=== PATIENT | female | born 1990 | race Caucasian/White ===

== ENCOUNTER 2016-08-26 18:43 | Emergency (ER) | payer BC ==
[2016-08-26 19:15] VITALS: BP 146/98
--- NOTE | 2016-08-26 19:18 | EDM.PDOC ---
ED HPI GI/ABDOMINAL - General Chief Complaint: Abdominal Pain Stated Complaint: PAIN IN AB AREA Time Seen by Provider: 08/26/16 19:18 Source of Information: Reports: Patient History Limitations: Reports: No limitations - History of Present Illness INITIAL COMMENTS - FREE TEXT/NARRATIVE: 26-year-old female presents the ED with diffuse epigastric upper abdominal pain since around 0830 hours this morning. It came on before she had the any breakfast. This gradually worsened as the day has gone on. It does not radiate through to her back. Associated nausea with bringing up some bile but mostly dry heaving and she's not been able to eat today. She of 1-2 minimal loose stools. No blood noted. Pain is constant without colicky component. Should prefers to stand or sit and rock versus lie down. No associated fever or chills. She uses alcohol socially. She admits that she had a bout of pancreatitis at age 20 and was never determined as to the cause. She apparently did have an ERCP thinking that she had some sand or gravel in the common bile duct but nothing was found. No gallstones are identified at that time. She's not had any problems since that time. No previous surgery. She does have a history of endometriosis. Last menstrual period is 3 days late. She reports she' s not been sexual active as her 's been out of town for over 30 days.Does drink alcohol 4-5 days per week. usually 4-5 drinks at a sitting. Last alcohol use was 2 days ago. Symptom Onset Date: 08/26/16 Symptom Onset Time: 08:30 Timing/Duration: Reports: Hour(s):, Getting worse, Gradual onset Location: other (Epigastric and upper upper abdomen in the midline and across of both the left and right quadrants.) Quality: Reports: ache, fullness. Denies: cramping (Deep aching pain.), stabbing (Feels slightly bloated in the upper abdomen.), throbbing, radiating Severity: severe Improves with: Reports: other (Nothing seems to help or make it better. Has not taken any medications.) Context: Denies: sick contact, bad/questionable food, out of country travel, recent surgery, recent trauma, lifting, activity/exercise, other Associated Symptoms (-Female): Reports: diarrhea (2 or 3 small), loss of appetite, malaise, nausea/vomiting (Nausea vomiting up a small quantity of bilious material which she swallowed.). Denies: chest pain, back pain, groin pain, shoulder pain, constipation ( stools that were loose.), bloody stools, fever/chills, other Treatments [employer]: Reports: Other (see below) (None) - Related Data Allergies/ADRs: Allergies Allergy/AdvReac Type Severity Reaction Status Date / Time azithromycin [From Zithromax] Allergy Nausea Verified 08/26/16 18:51 Home Meds: Home Meds Ondansetron [Zofran ODT] 4 mg PO Q6H #5 tab.dis 08/26/16 [Rx] oxyCODONE HCl/Acetaminophen [Percocet 5-325 mg Tablet] 1 - 2 each PO Q4H PRN # 12 tablet 08/26/16 [Rx] Past Medical History Cardiovascular History: Reports: None Respiratory History: Reports: None Gastrointestinal History: Reports: Pancreatitis (At age 20. She did have ERCP thinking that she had gravel in her common bile duct but nothing was found. Query passage of small stone. 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, Other OB/BYN History: C section Musculoskeletal History: Reports: Fibromyalgia Neurological History: Reports: None Psychiatric History: Reports: Anxiety Endocrine/Metabolic History: Reports: Obesity/BMI 30+ Immunologic History: Reports: SLE Oncologic (Cancer) History: Reports: None Dermatologic History: Reports: None - Infectious Disease History Infectious Disease History: Reports: None - Past Surgical History HEENT Surgical History: Reports: Adenoidectomy Female Surgical History: Reports: section Other Female Surgeries/Procedures: 2 c-sec endometriosis Social & Family History - Family History Family Medical History: Noncontributory - Tobacco Use Smoking Status *Q: Current Every Day Smoker Years of Tobacco use: 4 Packs/Tins Daily: 0.5 - Caffeine Use Caffeine Use: Reports: Soda - Alcohol Use Days Per Week of Alcohol Use: 4 Number of Drinks Per Day: 5 Total Drinks Per Week: 20 Date of Last Drink: 08/24/16 - Recreational Drug Use Recreational Drug Use: No - Living Situation & Occupation Living situation: Reports: , with spouse, with family (2 kids) 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 Denies: fever, chills, weakness, fatigue, weight loss HEENT: Reports: No symptoms Respiratory: Reports: no symptoms Cardiovascular: Reports: No symptoms Endocrine: Reports: no symptoms GI/Abdominal: Reports: Abdominal pain (See history of present illness), Anorexia , Diarrhea, Distension, Nausea (Constant), Vomiting (Mostly dry heaving.). Denies: Black stool, Bloody stool, Constipation (Small quantities of loose stool x2 today.), Difficulty swallowing, Flatus (Feels distended.), Hematemesis , Hematochezia, Melena, Other : Reports: no symptoms, other (. It is about 3 days late. 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 History of endometriosis.) Musculoskeletal: Reports: back pain Skin: Reports: no symptoms (Intermittently.) Neurological: Reports: no symptoms Psychiatric: Reports: No symptoms Hematologic/Lymphatic: Reports: no symptoms Immunologic: Reports: no symptoms ED EXAM, GI/ABD - Physical Exam Exam: See Below Exam Limited By: No limitations General Appearance: alert, moderate distress (Prefers to sit and rock back and forth in place on the bed.) Eyes: bilateral: normal appearance (No jaundice) Throat/Mouth: Normal lips, Normal oropharynx, Other Head: atraumatic, normocephalic Neck: normal inspection, supple, non-tender, full range of motion. No: carotid bruit, lymphadenopathy (L), lymphadenopathy (R), thyromegaly Respiratory/Chest: no respiratory distress, lungs clear, normal breath sounds, no accessory muscle use, chest non-tender Cardiovascular: normal peripheral pulses, no edema, no gallop, no JVD, no murmur , no rub, tachycardia GI/Abdominal: hypoactive bowel sounds (Very quiet bowel sounds.), tenderness ( Cross the upper abdomen particularly epigastrium and soup supraumbilical. Tenderness is widespread across the midabdomen. No radiation into the back.), other (Mildly obese). No: McBurney's sign, Kelly's sign Back Exam: normal inspection, full range of motion. No: CVA tenderness (L), CVA tenderness (R) Extremities: normal inspection, normal range of motion, non-tender, no pedal edema, normal capillary refill Neurological: alert, oriented, CN II-XII intact, normal cognition Psychiatric: normal affect, normal mood Skin Exam: Warm, Dry, Intact, Normal color, No rash Course - Vital Signs Last Recorded V/S: Last Vital Signs Temp 36.2 C 08/26/16 18:50 Pulse 85 08/26/16 20:59 Resp 16 08/26/16 20:59 BP 146/98 H 08/26/16 18:50 Pulse Ox 98 08/26/16 20:59 - Orders/Labs/Meds Orders: Active Orders 24 hr Category Date Time Status Abdomen 1V Flat [CR] Stat Exams 08/26/16 19:25 Taken Abdomen Ltd [US] Stat Exams 08/26/16 20:24 Taken Labs: Laboratory Tests 08/26/16 08/26/16 08/26/16 Range/Units 19:47 19:47 19:47 WBC 10.10 H (3.98-10.04) K/mm3 RBC 4.59 (3.98-5.22) M/mm3 Hgb 16.1 H (11.2-15.7) gm/L Hct 45.7 H (34.1-44.9) % MCV 99.6 H (79.4-94.8) fl MCH 35.1 H (25.6-32.2) pg MCHC 35.2 (32.2-35.5) g/dl RDW Std Deviation 44.3 (36.4-46.3) fL Plt Count 141 L (182-369) K/mm3 MPV 11.4 (9.4-12.3) fl Neutrophils % (Manual) 86 H (40-60) % Band Neutrophils % 0 (0-10) % Lymphocytes % (Manual) 6 L (20-40) % Atypical Lymphs % 0 % Monocytes % (Manual) 5 (2-10) % Eosinophils % (Manual) 3 (0.7-5.8) % Basophils % (Manual) 0 L (0.1-1.2) Platelet Estimate Adequate Plt Morphology Comment Normal RBC Morph Comment Normal Sodium 137 (136-145) mEq/L Potassium 3.6 (3.5-5.1) mEq/L Chloride 102 (98-107) mEq/L Carbon Dioxide 24 (21-32) mEq/L Anion Gap 14.6 (5-15) BUN 6 L (7-18) mg/dL Creatinine 0.7 (0.55-1.02) mg/dL Est Cr Clr Drug Dosing 105.17 mL/min Estimated GFR (MDRD) > 60 (>60) mL/min BUN/Creatinine Ratio 8.6 L (14-18) Glucose 100 (74-106) mg/dL Calcium 9.2 (8.5-10.1) mg/dL Total Bilirubin 0.9 (0.2-1.0) mg/dL GGT 298 H (5-55) U/L AST 91 H (15-37) U/L ALT 81 H (14-59) U/L Alkaline Phosphatase 106 (46-116) U/L C-Reactive Protein 1.0 (<1.0) mg/dL Total Protein 7.5 (6.4-8.2) g/dl Albumin 3.5 (3.4-5.0) g/dl Globulin 4.0 gm/dL Albumin/Globulin Ratio 0.9 L (1-2) Lipase 103 (73-393) U/L HCG, Qual Negative (NEGATIVE) Urine Color (Yellow) Urine Appearance (Clear) Urine pH (5.0-8.0) Ur Specific [place] (1.005-1.030) Urine Protein (Negative) Urine Glucose (UA) (Negative) Urine Ketones (Negative) Urine Occult Blood (Negative) Urine Nitrite (Negative) Urine Bilirubin (Negative) Urine Urobilinogen (0.2-1.0) Ur Leukocyte Esterase (Negative) Urine RBC (0-5) /hpf Urine WBC (0-5) /hpf Ur Epithelial Cells (0-5) /hpf Urine Bacteria (FEW) /hpf Urine Mucus (FEW) /hpf Urine Opiates Screen (NEGATIVE) Ur Buprenorphine Scrn (NEGATIVE) Ur Oxycodone Screen (NEGATIVE) Urine Methadone Screen (NEGATIVE) Ur Propoxyphene Screen (NEGATIVE) Ur Barbiturates Screen (NEGATIVE) Ur Tricyclics Screen (NEGATIVE) Ur Phencyclidine Scrn (NEGATIVE) Ur Amphetamine Screen (NEGATIVE) U Methamphetamines Scrn (NEGATIVE) U Benzodiazepines Scrn (NEGATIVE) U Cocaine Metab Screen (NEGATIVE) U Marijuana (THC) Screen (NEGATIVE) Ethyl Alcohol (0.00) gm% 08/26/16 08/26/16 08/26/16 Range/Units 19:47 19:50 19:50 WBC (3.98-10.04) K/mm3 RBC (3.98-5.22) M/mm3 Hgb (11.2-15.7) gm/L Hct (34.1-44.9) % MCV (79.4-94.8) fl MCH (25.6-32.2) pg MCHC (32.2-35.5) g/dl RDW Std Deviation (36.4-46.3) fL Plt Count (182-369) K/mm3 MPV (9.4-12.3) fl Neutrophils % (Manual) (40-60) % Band Neutrophils % (0-10) % Lymphocytes % (Manual) (20-40) % Atypical Lymphs % % Monocytes % (Manual) (2-10) % Eosinophils % (Manual) (0.7-5.8) % Basophils % (Manual) (0.1-1.2) Platelet Estimate Plt Morphology Comment RBC Morph Comment Sodium (136-145) mEq/L Potassium (3.5-5.1) mEq/L Chloride (98-107) mEq/L Carbon Dioxide (21-32) mEq/L Anion Gap (5-15) BUN (7-18) mg/dL Creatinine (0.55-1.02) mg/dL Est Cr Clr Drug Dosing mL/min Estimated GFR (MDRD) (>60) mL/min BUN/Creatinine Ratio (14-18) Glucose (74-106) mg/dL Calcium (8.5-10.1) mg/dL Total Bilirubin (0.2-1.0) mg/dL GGT (5-55) U/L AST (15-37) U/L ALT (14-59) U/L Alkaline Phosphatase (46-116) U/L C-Reactive Protein (<1.0) mg/dL Total Protein (6.4-8.2) g/dl Albumin (3.4-5.0) g/dl Globulin gm/dL Albumin/Globulin Ratio (1-2) Lipase (73-393) U/L HCG, Qual (NEGATIVE) Urine Color Yellow (Yellow) Urine Appearance Slt cloudy H (Clear) Urine pH 8.5 H (5.0-8.0) Ur Specific [place] 1.020 (1.005-1.030) Urine Protein 1+ H (Negative) Urine Glucose (UA) Negative (Negative) Urine Ketones 1+ H (Negative) Urine Occult Blood Negative (Negative) Urine Nitrite Negative (Negative) Urine Bilirubin 1+ H (Negative) Urine Urobilinogen 1.0 (0.2-1.0) Ur Leukocyte Esterase Negative (Negative) Urine RBC 0-5 (0-5) /hpf Urine WBC 0-5 (0-5) /hpf Ur Epithelial Cells 5-10 H (0-5) /hpf Urine Bacteria Moderate H (FEW) /hpf Urine Mucus Many H (FEW) /hpf Urine Opiates Screen Negative (NEGATIVE) Ur Buprenorphine Scrn Negative (NEGATIVE) Ur Oxycodone Screen Negative (NEGATIVE) Urine Methadone Screen Negative (NEGATIVE) Ur Propoxyphene Screen Negative (NEGATIVE) Ur Barbiturates Screen Negative (NEGATIVE) Ur Tricyclics Screen Negative (NEGATIVE) Ur Phencyclidine Scrn Negative (NEGATIVE) Ur Amphetamine Screen Negative (NEGATIVE) U Methamphetamines Scrn Negative (NEGATIVE) U Benzodiazepines Scrn Negative (NEGATIVE) U Cocaine Metab Screen Negative (NEGATIVE) U Marijuana (THC) Screen Negative (NEGATIVE) Ethyl Alcohol 0.00 (0.00) gm% Meds: Medications Discontinued Medications Generic Name Dose Route Start Last Admin Trade Name Freq PRN Reason Stop Dose Admin Hydromorphone HCl 1 mg 08/26/16 19:23 08/26/16 19:57 Dilaudid IVPUSH 08/26/16 19:24 1 mg ONETIME ONE Administration Hydromorphone HCl 1 mg 08/26/16 21:48 08/26/16 21:56 Dilaudid IVPUSH 08/26/16 21:49 1 mg ONETIME ONE Administration Dextrose/Sodium Chloride 1,000 mls @ 999 mls/hr 08/26/16 19:30 08/26/16 19:53 Dextrose 5%-Normal Saline IV 999 mls/hr ASDIRECTED ALISA Administration Ketorolac Tromethamine 30 mg 08/26/16 22:00 08/26/16 21:57 Toradol IVPUSH 30 mg ONETIME ALISA Administration Metoclopramide HCl 10 mg 08/26/16 19:24 08/26/16 19:55 Reglan IVPUSH 08/26/16 19:25 10 mg ONETIME ONE Administration - Radiology Interpretation Free Text/Narrative:: 26-year-old female presents to the ED with diffuse upper abdominal pain starting about 0830 hours this morning . Pain came on gradually and has worsened as the day has gone on. Associated nausea with occasional dry heaves and some bilious emesis which she swallowed. Has had a few loose stools today. Pain is constant with no colicky component . It's all above the umbilicus ,does not radiate into her back. She has a history of pancreatitis diagnosed at age 20. She had ERCP with no positive findings. At that time she did not drink alcohol at all. At present she drinks alcohol 4-5 days pwer week. usually 4-5 drinks per sitting. This would be at risk alcohol use. . No new medications. No known hypertriglyceridemia. Examination reveals tenderness in the upper abdomen suggestive of possible pancreatitis. Plan IV D5 normal saline and opened. Dilaudid 1 mg IV with Reglan 10 mg IV for pain relief. Routine labs to include a lipase CRP and GGT level. One view of the abdomen will be obtained. A serum hCG was also ordered and a urinalysis. - Re-Assessments/Exams Free Text/Narrative Re-Assessment/Exam: 08/26/16 19:44KUB reveals essentially normal abdomen. There is no sign of bowel obstruction. There is no increased stool. Scattered air pockets throughout the transverse colon and one small portion of small bowel superior to the transverse colon. Benign appearing KUB 08/26/16 20:25labs are back and revealed a white count of 10.10. Hemoglobin is mildly elevated at 16.1 hematocrit 45.7 platelets normal 141,000. The hCG was negative. Chemistry shows a sodium of 137 potassium 3.6. Anion gap is normal at 14.6. CRP is 1.0 lipase normal 103. AST is mildly elevated at 91 ALT mildly elevated at 81. GGT is not going to be available to the lab problems. Urine is positive for 1+ ketones 1+ bilirubin and 1+ protein. Due to the nature of her severe pain I will have an ultrasound of her gallbladder performed at this time. She has not been able to eat all day. 08/26/16 21:41GB ultrasound has been completed. The liver was noted to be normal with no intrahepatic bile duct dilatation. Gallbladder shows a 1 cm non- shadowing focus adherent to the gallbladder wall suggestive of a polyp. Common bile duct maximal diameter is 3 mm no definitive stones are noted in the gallbladder. Right kidney was appreciated to be normal. 08/26/16 21:49 the patient is having recurrence of pain now since she had the gallbladder ultrasound. She does have more localized pain underneath the right costal margin at this time with positive Kelly sign. The radiologist could not identify whether this was a polyp or sludge within the gallbladder. Since she has been having recurrent similar problems I'm going to go ahead and book her for a HIDA scan as an outpatient. I will give her Dilaudid 1 milligram IV for further pain relief with Toradol 30 mg IV as well. She will be sent home with Zofran 4 mg sublingually every 6 hours when necessary for nausea or vomiting relief. Percocet tabs 5 /325 one or 2 every 4-6 hours as needed for pain relief x10 tabs.results of this study are to go to [facility] her normal care provider. Departure - Departure Time of Disposition: 21:50 Disposition: Home, Self-Care 01 Condition: fair Clinical Impression: Biliary colic symptom Prescriptions: Ondansetron [Zofran ODT] 4 mg PO Q6H #5 tab.dis oxyCODONE HCl/Acetaminophen [Percocet 5-325 mg Tablet] 1 - 2 each PO Q4H PRN # 12 tablet PRN Reason: pain relief. Instructions: Biliary Colic Referrals: Paz Clark DO [Primary Care Provider] - Forms: ED Department Discharge Additional Instructions: evaluation in the emergency room tonight in regards to development of significant epigastric mild right upper quadrant abdominal pain since early this morning. Pain worsened as the day went on and did not allow you to eat or drink. Examination revealed pain localized to the upper abdomen. With a history of reported pancreatitis at age 20 investigations were carried out. Labs done did not reveal any evidence of pancreatitis. Serum lipase was well within the normal range at 1:30. White count was only minimally elevated. Liver enzymes are mildly elevated likely due to alcohol use. Ultrasound of the gallbladder was performed and reveals sludge within the gallbladder wall. This may mean that you have a nonfunctioning or improperly functioning gallbladder. Suggest further investigations be carried out by way of a HIDA scan to identify whether or not the gallbladder is diseased enough to warrant surgical removal. He received pain medication and IV fluids while in the ED. Treatment at home is no fat and low protein diet for the next couple of days. Carbohydrates are okay to take such as breads cereal etc. I will have the radiology department call you tomorrow to book that time for HIDA scan. Did not take any pain medication for 12 hours prior to the HIDA scan other than Motrin or Aleve et cetera. May use Zofran 4 mg under the tongue every 6 hours as needed for relief of nausea or vomiting. The results of the HIDA scan will be sent here normal care provider. Please book an appointment followup with them 2 days after the HIDA scan has been completed. If surgical management is required they will try to to appropriate surgical referral. - My Orders Last 24 Hours: My Active Orders 08/26/16 19:25 Abdomen 1V Flat [CR] Stat 08/26/16 20:24 Abdomen Ltd [US] Stat - Assessment/Plan Last 24 Hours: My Active Orders 08/26/16 19:25 Abdomen 1V Flat [CR] Stat 08/26/16 20:24 Abdomen Ltd [US] Stat
[2016-08-26] MEDS ORDERED: HYDROmorphone 1 MG/ML Syringe IVPUSH ONE ×2 (19:23→21:48)
[2016-08-26] MEDS ORDERED: Metoclopramide 10 MG/2 ML SDV IVPUSH ONE (19:24)
[2016-08-26] MEDS ORDERED: Dextrose 5%-0.9% NaCl 1,000 ML IV SCH (19:30)
[2016-08-26] MEDS ORDERED: Ketorolac 30 MG/ML SDV IVPUSH SCH (22:00)
[2016-08-26] MEDS ORDERED: Acetaminophen/oxyCODONE 325-5 MG Tab ONE (22:04)
[2016-08-26] MEDS ORDERED: Ondansetron 4 MG Tab.DIS ONE (22:04)
--- NOTE | 2016-08-27 07:05 | CR ---
Abdomen: Supine view of the abdomen was obtained. Comparison: No previous abdominal x-ray. Bowel gas pattern appears normal. No abnormal calcifications or discrete soft tissue abnormality is seen. Bony structures appear within normal limits for the patient's age. Impression: 1. No abnormality is identified on supine abdominal x-ray. Diagnostic code #1
--- NOTE | 2016-08-27 07:05 | US ---
Limited abdominal ultrasound: Multiple real-time images of the upper right abdomen were obtained. Comparison: No previous abdominal ultrasound Liver appears mildly generous in size and echogenic. No discrete focal abnormality is appreciated. Small soft tissue abnormality identified along the gallbladder wall possibly due to polyp or adherent sludge. No shadowing gallstones are seen. No gallbladder wall thickening is identified. No biliary duct dilatation is seen. Right kidney shows no hydronephrosis or mass. Right kidney measures 10.9 cm in length. Pancreas shows no discrete abnormality. Pancreas is incompletely seen. Inferior vena cava is patent. Impression: 1. Small intraluminal abnormality within the gallbladder most likely representing adherent sludge or polyp. Small gallbladder mass cannot be excluded but felt less likely. Follow-up exam could be considered in 2-3 months to confirm stability. 2. Liver generous in size and is echogenic felt compatible with fatty infiltration. 3. No additional abnormality is appreciated on right upper quadrant abdominal ultrasound. Diagnostic code #9 Agree with preliminary report issued by [facility] ([facility] report dictated on 08/26/16, 10:39 PM Central Time)
== END 2016-08-26 22:05 | disposition home or self-care (01) ==
LOC: JD.ED 18:43 → MERGE 18:43 → JD.ED 22:05
DX: K80.50 Calculus of bile duct without cholangitis or cholecystitis without obstruction (principal); F41.9 Anxiety disorder, unspecified; E66.9 Obesity, unspecified; Z88.1 Allergy status to other antibiotic agents; Z98.890 Other specified postprocedural states; F17.210 Nicotine dependence, cigarettes, uncomplicated
CPT/HCPCS: 36415; 74000; 76705; 80053; 81001; 82977; 83690; 84703; 85025; 86140; 96361; 96374; 96375; 96376; 99285; A9270; G0478; G0480; J1170; J1885; J2765; J7042; 80306; 99284

== ENCOUNTER 2016-09-01 19:31 | Emergency (ER) | payer BC ==
[2016-09-01 19:37] VITALS: BP 140/96
[2016-09-01] MEDS ORDERED: Metoclopramide 10 MG/2 ML SDV IVPUSH ONE (20:16)
[2016-09-01] MEDS ORDERED: HYDROmorphone 0.5 MG/0.5 ML Syringe IVPUSH ONE (20:18)
--- NOTE | 2016-09-01 22:04 | EDM.PDOC ---
ED HPI GI/ABDOMINAL - General Chief Complaint: Gastrointestinal Problem Stated Complaint: COUGH VOMITING LOWER RIGHT SIDE PAIN Time Seen by Provider: 09/01/16 19:58 Source of Information: Reports: Patient, RN notes reviewed - History of Present Illness INITIAL COMMENTS - FREE TEXT/NARRATIVE: 26 rolled female comes in with right upper quadrant abdominal pain, nausea vomiting. Her symptoms started about one week ago. She was seen here in the ED 6 days ago. Fairly complete workup done at that time. Labs did show very mildly elevated liver enzymes at that time. She had an ultrasound of her gallbladder which did show some sludge. She then had a HIDA scan done later in the week. She has not yet had results from that. However she's continued to have a very miserable week. She states that whenever she eats she gets sick abdominal pain and no repetitive nausea vomiting as well. The pain is primarily right upper quadrant does radiate to her back. She's not had fever or definite chills. Over now she also has developed nasal and sinus congestion a few days ago with frequent nonproductive cough. She's not having diarrhea. It is the abdominal pain, nausea vomiting that really concerns her the most. - Related Data Allergies/ADRs: Allergies Allergy/AdvReac Type Severity Reaction Status Date / Time azithromycin [From Zithromax] Allergy Nausea Verified 09/01/16 19:33 Home Meds: Home Meds Ondansetron [Zofran ODT] 4 mg PO Q6H #5 tab.dis 08/26/16 [Rx] oxyCODONE HCl/Acetaminophen [Percocet 5-325 mg Tablet] 1 - 2 each PO Q4H PRN # 12 tablet 08/26/16 [Rx] Metoclopramide HCl [Reglan] 5 mg PO Q6HR PRN #7 tablet 09/01/16 [Rx] oxyCODONE HCl/Acetaminophen [Percocet 5-325 mg Tablet] 1 each PO Q6HR PRN #7 tablet 09/01/16 [Rx] Past Medical History Cardiovascular History: Reports: None Respiratory History: Reports: None Gastrointestinal History: Reports: Pancreatitis Other Gastrointestinal History: 5 years ago Genitourinary History: Reports: None 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, Other OB/BYN History: C section Musculoskeletal History: Reports: Fibromyalgia Neurological History: Reports: None Psychiatric History: Reports: Anxiety Endocrine/Metabolic History: Reports: Obesity/BMI 30+ Immunologic History: Reports: SLE Oncologic (Cancer) History: Reports: None Dermatologic History: Reports: None - Infectious Disease History Infectious Disease History: Reports: Chicken pox - Past Surgical History HEENT Surgical History: Reports: Adenoidectomy Female Surgical History: Reports: section Other Female Surgeries/Procedures: 2 c-sec endometriosis Social & Family History - Family History Family Medical History: Noncontributory - Tobacco Use Smoking Status *Q: Current Every Day Smoker Years of Tobacco use: 4 Packs/Tins Daily: 0.5 - Caffeine Use Caffeine Use: Reports: None - Alcohol Use Days Per Week of Alcohol Use: 3 Number of Drinks Per Day: 5 Total Drinks Per Week: 15 - Recreational Drug Use Recreational Drug Use: No - Living Situation & Occupation Living situation: Reports: , with spouse, with family (2 kids) 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 Denies: fever HEENT: Reports: Throat pain (mild sore throat). Denies: Throat swelling Respiratory: Reports: cough. Denies: shortness of breath, wheezing, pleuritic chest pain, sputum Cardiovascular: Denies: Chest pain GI/Abdominal: Reports: Abdominal pain (right upper quadrant area of her abdomen with radiation at times to her back), Nausea, Vomiting. Denies: Diarrhea Musculoskeletal: Reports: back pain Skin: Reports: no symptoms Neurological: Reports: dizziness (mild) ED EXAM, GI/ABD - Physical Exam Exam: See Below General Appearance: alert, moderate distress Eyes: bilateral: normal appearance Throat/Mouth: Normal inspection, Normal oropharynx Head: atraumatic Neck: supple Respiratory/Chest: no respiratory distress, lungs clear, normal breath sounds Cardiovascular: tachycardia GI/Abdominal: tenderness (right upper quadrant and upper midabdomen, left abdomen soft and nontender right lower quadrant nontender) Back Exam: No: CVA tenderness (L), CVA tenderness (R) Extremities: normal inspection, normal range of motion Neurological: alert, oriented, no motor/sensory deficits Skin Exam: Warm, Dry, Normal color Course - Vital Signs Last Recorded V/S: Last Vital Signs Temp 97.8 F 09/01/16 19:35 Pulse 118 H 09/01/16 19:35 Resp 18 09/01/16 19:35 BP 140/96 H 09/01/16 19:35 Pulse Ox 96 09/01/16 19:35 - Orders/Labs/Meds Labs: Laboratory Tests 09/01/16 09/01/16 Range/Units 20:36 20:36 WBC 3.48 L (3.98-10.04) K/mm3 RBC 4.67 (3.98-5.22) M/mm3 Hgb 15.9 H (11.2-15.7) gm/L Hct 46.5 H (34.1-44.9) % MCV 99.6 H (79.4-94.8) fl MCH 34.0 H (25.6-32.2) pg MCHC 34.2 (32.2-35.5) g/dl RDW Std Deviation 45.0 (36.4-46.3) fL Plt Count 92 L (182-369) K/mm3 MPV 11.5 (9.4-12.3) fl Neut % (Auto) 59.5 (34.0-71.1) % Lymph % (Auto) 20.1 (19.3-51.7) % [place] % (Auto) 18.1 H (4.7-12.5) % Eos % (Auto) 1.1 (0.7-5.8) Baso % (Auto) 0.6 (0.1-1.2) % Neut # 2.07 (1.56-6.13) K/mm3 Lymph # 0.70 L (1.18-3.74) K/mm3 [place] # 0.63 H (0.24-0.36) K/mm3 Eos # 0.04 (0.04-0.36) K/mm3 Baso # 0.02 (0.01-0.08) K/mm3 Manual Slide Review Abnormal smear Sodium 136 (136-145) mEq/L Potassium 3.6 (3.5-5.1) mEq/L Chloride 101 (98-107) mEq/L Carbon Dioxide 23 (21-32) mEq/L Anion Gap 15.6 H (5-15) BUN 5 L (7-18) mg/dL Creatinine 0.7 (0.55-1.02) mg/dL Est Cr Clr Drug Dosing TNP Estimated GFR (MDRD) > 60 (>60) mL/min BUN/Creatinine Ratio 7.1 L (14-18) Glucose 90 (74-106) mg/dL Calcium 9.2 (8.5-10.1) mg/dL Total Bilirubin 0.3 (0.2-1.0) mg/dL GGT 399 H (5-55) U/L AST 216 H (15-37) U/L ALT 144 H (14-59) U/L Alkaline Phosphatase 101 (46-116) U/L Total Protein 7.7 (6.4-8.2) g/dl Albumin 3.9 (3.4-5.0) g/dl Globulin 3.8 gm/dL Albumin/Globulin Ratio 1.0 (1-2) Lipase 388 (73-393) U/L Meds: Medications Discontinued Medications Generic Name Dose Route Start Last Admin Trade Name Freq PRN Reason Stop Dose Admin Hydromorphone HCl 0.5 mg 09/01/16 20:18 09/01/16 20:38 Dilaudid IVPUSH 09/01/16 20:19 0.5 mg ONETIME ONE Administration Metoclopramide HCl 5 mg 09/01/16 20:16 09/01/16 20:37 Reglan IVPUSH 09/01/16 20:17 5 mg ONETIME ONE Administration - Re-Assessments/Exams Free Text/Narrative Re-Assessment/Exam: 09/01/16 22:15 labs are as documented. White blood count normal, liver enzymes including GGT are more elevated than they were 6 days ago. Bilirubin is fine at 0.3. I did review her HIDA scan report and does that is read out as within normal limits and an ejection fraction of 82%. However with her quite severe tenderness right upper quadrant, worsening liver enzymes, sludge on the ultrasound it would sure it seemed that her symptoms are primarily gallbladder related. Therefore I am suggesting she called Dr. Clark's office draw morning and try get a referral to one of the [facility] surgeons early this week. she feels much better after some IV fluid, IV Dilaudid 0.5 mg IV and Reglan IV. Discharge instructions as documented Departure - Departure Time of Disposition: 21:59 Disposition: Home, Self-Care 01 Condition: fair Clinical Impression: Abdominal pain Prescriptions: Metoclopramide HCl [Reglan] 5 mg PO Q6HR PRN #7 tablet PRN Reason: Nausea/Vomiting oxyCODONE HCl/Acetaminophen [Percocet 5-325 mg Tablet] 1 each PO Q6HR PRN #7 tablet PRN Reason: Pain Referrals: Paz Clark DO [Primary Care Provider] - Forms: ED Department Discharge Additional Instructions: It appears that the abdominal discomfort you are continuing to have difficulty with is related to gallbladder sludge and gallbladder disease. the liver enzymes I looked at this evening or elevated in comparison to your visit with Dr. Harper last Friday. continue with clear liquids and very bland diet avoiding any type of food that contains fat. Continue to avoid alcohol. You may take one half tablet Percocet along with a 500 mg Tylenol for pain as needed, Zofran as previously prescribed for nausea vomiting or Reglan 5 mg every 6-8 hours as needed. I recommend calling Dr. Clark's nurse tomorrow morning, explain the continued difficulty you were having and asked for a referral to Dr. Michelle Hall general surgeon or Dr. Joseph Martinez general surgeon. otherwise followup with Dr. Clark as needed. return to ED as needed.
== END 2016-09-01 22:34 | disposition home or self-care (01) ==
LOC: JD.ED 19:31 → MERGE 19:31 → JD.ED 22:34
DX: R10.11 Right upper quadrant pain (principal); F41.9 Anxiety disorder, unspecified; E66.9 Obesity, unspecified; F17.210 Nicotine dependence, cigarettes, uncomplicated; Z98.890 Other specified postprocedural states; Z88.1 Allergy status to other antibiotic agents; Z79.899 Other long term (current) drug therapy
CPT/HCPCS: 36415; 80053; 82977; 83690; 85025; 96374; 96375; 99284; J1170; J2765

== ENCOUNTER 2017-04-07 00:44 | Emergency (ER) | payer BC ==
[2017-04-07 00:55] VITALS: BP 142/100
[2017-04-07] MEDS ORDERED: Lidocaine 1% 50 ML MDV INJECT ONE (01:08)
[2017-04-07] MEDS ORDERED: Diphtheria/Tetanus Toxoids,Adult (Td) 0.5 ML Syringe IM ONE (01:08)
[2017-04-07] MEDS ORDERED: Diphtheria,Pertussis(Acell),Tetanus Vaccine 0.5 ML SDV IM ONE (01:20)
--- NOTE | 2017-04-07 01:34 | EDM.PDOC ---
ED HPI GENERAL MEDICAL PROBLEM - General Chief Complaint: Laceration Stated Complaint: self harm Time Seen by Provider: 04/07/17 01:00 Source of Information: Reports: Patient, RN Notes Reviewed - History of Present Illness INITIAL COMMENTS - FREE TEXT/NARRATIVE: 27-year-old female comes in with right forearm lacerations. She states that she did cut on her forearm this past evening about an hour or 2 ago. 2 or the cuts are moderately deep. She states that she was feeling stressed out. States that she does feel the need to cut at times. She blames it on the Lexapro that was prescribed for her a few weeks ago. States she was on Lexapro about 5 years ago and did not do well with that medication at that time. However she was ready and willing to try it again. She adamantly states that she does not feel suicidal, does not want to . - Related Data Allergies Allergy/AdvReac Type Severity Reaction Status Date / Time azithromycin [From Zithromax] Allergy Nausea Verified 09/01/16 19:33 ibuprofen Allergy Hives Verified 04/07/17 00:55 Home Meds: Home Meds Escitalopram Oxalate [Lexapro] 5 mg PO DAILY 04/07/17 [History] L.acidoph,Paracasei, B.lactis [Probiotic] 1 tab PO DAILY 04/07/17 [History] Multivitamin [Daily Multiple Vitamin] 1 tab PO DAILY 04/07/17 [History] Past Medical History Cardiovascular History: Reports: None Respiratory History: Reports: None Gastrointestinal History: Reports: Pancreatitis Other Gastrointestinal History: 5 years ago Genitourinary History: Reports: None 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, Other OB/BYN History: C section Musculoskeletal History: Reports: Fibromyalgia Neurological History: Reports: None Psychiatric History: Reports: Anxiety Endocrine/Metabolic History: Reports: Obesity/BMI 30+ Immunologic History: Reports: SLE Oncologic (Cancer) History: Reports: None Dermatologic History: Reports: None - Infectious Disease History Infectious Disease History: Reports: Chicken Pox - Past Surgical History HEENT Surgical History: Reports: Adenoidectomy GI Surgical History: Reports: Cholecystectomy Female Surgical History: Reports: Section Social & Family History - Family History Family Medical History: Noncontributory - Tobacco Use Smoking Status *Q: Current Every Day Smoker Years of Tobacco use: 5 Packs/Tins Daily: 0.5 - Caffeine Use Caffeine Use: Reports: None - Alcohol Use Days Per Week of Alcohol Use: 3 Number of Drinks Per Day: 5 Total Drinks Per Week: 15 - Recreational Drug Use Recreational Drug Use: No - Living Situation & Occupation Living situation: Reports: with Family, , with Spouse Occupation: Employed ED ROS GENERAL - Review of Systems Review Of Systems: See Below Constitutional: Reports: No Symptoms HEENT: Reports: No Symptoms Respiratory: Denies: Shortness of Breath Cardiovascular: Denies: Chest Pain GI/Abdominal: Denies: Abdominal Pain, Vomiting Musculoskeletal: Reports: Other (Multiple right forearm lacerations) Skin: Reports: Other (Healing abrasions left forearm) Neurological: Denies: Numbness, Tingling ED EXAM, SKIN/RASH Exam: See Below General Appearance: Alert, Anxious (Mild) Eye Exam: Bilateral Eye: PERRL Head: Atraumatic Neck: Supple Respiratory/Chest: No Respiratory Distress Extremities: Other (Multiple superficial abrasions of the right forearm, 2 deeper lacerations 1 2-1/2 cm and 1 is about 1.5 cm that are gaping) Skin: Other (There are multiple superficial abrasion injuries of the left forearm that do show signs of healing, subacute) ED SKIN PROCEDURES - Laceration/Wound Repair Right Mid-Anterior Arm Lac/Wound length In cm: 2.5 Appearance: Linear Anesthetic Type: Local Local Anesthesia - Lidocaine (Xylocaine): 1% Plain Skin Prep: Saline Suture Size: 3-0 # of Sutures: 4 Course - Vital Signs Last Recorded V/S: Last Vital Signs Temp 96 F 04/07/17 00:51 Pulse 108 H 04/07/17 00:51 Resp 18 04/07/17 00:51 BP 142/100 H 04/07/17 00:51 Pulse Ox 98 04/07/17 00:51 - Orders/Labs/Meds Orders: Active Orders 24 hr Category Date Time Status Vaccines to be Administered [RC] PER UNIT ROUTINE Care 04/07/17 01:09 Active Vaccines to be Administered [RC] PER UNIT ROUTINE Care 04/07/17 01:20 Active Meds: Medications Discontinued Medications Generic Name Dose Route Start Last Admin Trade Name Freq PRN Reason Stop Dose Admin Diphtheria/Tetanus/Acell Pertussis 0.5 ml 04/07/17 01:20 04/07/17 01:26 Adacel IM 04/07/17 01:21 0.5 ml .ONCE ONE Administration Lidocaine HCl 50 ml 04/07/17 01:08 04/07/17 01:30 Xylocaine 1% INJECT 04/07/17 01:09 50 ml ONETIME ONE Administration - Re-Assessments/Exams Free Text/Narrative Re-Assessment/Exam: 04/07/17 02:25 Second laceration right forearm 1.5 cm long shallow but gaping. Irrigated with normal saline. Anesthetized with 1% lidocaine. 2 3-0 Ethilon sutures placed Departure - Departure Time of Disposition: 01:50 Disposition: Home, Self-Care 01 Condition: Fair Clinical Impression: Forearm laceration Qualifiers: Encounter type: initial encounter Laterality: right Qualified Code(s): S51.811A - Laceration without foreign body of right forearm, initial encounter - Discharge Information Instructions: Laceration Care, Adult, [id number] Referrals: Jael Hale [employer] [Primary Care Provider] - Forms: ED Department Discharge Additional Instructions: Laceration care instructions, stitches out in about 10 days, there is no charge if you have those removed at our [facility] clinic, have rechecked any sign of infection - My Orders Last 24 Hours: My Active Orders 04/07/17 01:09 Vaccines to be Administered [RC] PER UNIT ROUTINE 04/07/17 01:20 Vaccines to be Administered [RC] PER UNIT ROUTINE - Assessment/Plan Last 24 Hours: My Active Orders 04/07/17 01:09 Vaccines to be Administered [RC] PER UNIT ROUTINE 04/07/17 01:20 Vaccines to be Administered [RC] PER UNIT ROUTINE
== END 2017-04-07 02:18 | disposition home or self-care (01) ==
LOC: JD.ED 00:44
DX: S51.811A Laceration without foreign body of right forearm, initial encounter (principal); Z88.6 Allergy status to analgesic agent; Z88.1 Allergy status to other antibiotic agents; Z79.899 Other long term (current) drug therapy; E66.9 Obesity, unspecified; F17.210 Nicotine dependence, cigarettes, uncomplicated; Z23 Encounter for immunization; W45.8XXA Other foreign body or object entering through skin, initial encounter; F41.8 Other specified anxiety disorders; F32.89 Other specified depressive episodes; T14.8XXA Other injury of unspecified body region, initial encounter; X58.XXXA Exposure to other specified factors, initial encounter
CPT/HCPCS: 12002; 36415; 80053; 84443; 85025; 90471; 90715; 99284-25

== ENCOUNTER 2017-11-24 23:10 | Emergency (ER) | payer BC, OTHER ==
[2017-11-25] MEDS ORDERED: Acetaminophen 325 MG Tab ONE (00:12)
[2017-11-25] MEDS ORDERED: Sodium Chloride 0.9% 1,000 ML ONE (00:12)
[2017-11-25] MEDS ORDERED: Sodium Chloride 0.9% 500 ML IV ONE (00:40)
[2017-11-25] MEDS ORDERED: Acetaminophen 325 MG Tab PO ONE (00:40)
[2017-11-25] MEDS ORDERED: Metoprolol Tartrate 50 MG Tab PO ONE (00:40)
--- NOTE | 2017-11-25 01:23 | EDM.PDOC ---
ED HPI GENERAL MEDICAL PROBLEM - General Chief Complaint: Headache Stated Complaint: PANIC ATTACK Time Seen by Provider: 11/25/17 00:17 Source of Information: Reports: Patient, RN Notes Reviewed - History of Present Illness INITIAL COMMENTS - FREE TEXT/NARRATIVE: 27-year-old female comes with headache, tailbone discomfort, mild right hand and wrist discomfort and palpitations status post fall 3 days ago. He states that she had her dog on a leash, going down some steps in the dog took off causing her to fall down "19 steps". She was seen at a [place] ED yesterday. X -rays of her right hand showed no fracture. She states there are "was no other treatment provided. She does not think she suffered LOC. No major neck or upper back discomfort. - Related Data Allergies Allergy/AdvReac Type Severity Reaction Status Date / Time azithromycin [From Zithromax] Allergy Nausea Verified 09/01/16 19:33 ibuprofen Allergy Hives Verified 04/07/17 00:55 Home Meds: Home Meds Escitalopram Oxalate [Lexapro] 5 mg PO DAILY 04/07/17 [History] L.acidoph,Paracasei, B.lactis [Probiotic] 1 tab PO DAILY 04/07/17 [History] Multivitamin [Daily Multiple Vitamin] 1 tab PO DAILY 04/07/17 [History] Past Medical History Cardiovascular History: Reports: None Respiratory History: Reports: None Gastrointestinal History: Reports: Pancreatitis Other Gastrointestinal History: 5 years ago Genitourinary History: Reports: None 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, Other OB/BYN History: C section Musculoskeletal History: Reports: Fibromyalgia Neurological History: Reports: None Psychiatric History: Reports: Anxiety Endocrine/Metabolic History: Reports: Obesity/BMI 30+ Immunologic History: Reports: SLE Oncologic (Cancer) History: Reports: None Dermatologic History: Reports: None - Infectious Disease History Infectious Disease History: Reports: Chicken Pox - Past Surgical History HEENT Surgical History: Reports: Adenoidectomy GI Surgical History: Reports: Cholecystectomy Female Surgical History: Reports: Section Social & Family History - Family History Family Medical History: Noncontributory - Caffeine Use Caffeine Use: Reports: None - Living Situation & Occupation Living situation: Reports: with Family, , with Spouse Occupation: Employed ED ROS GENERAL - Review of Systems Review Of Systems: See Below Constitutional: Denies: Fever, Chills HEENT: Denies: Ear Discharge, Throat Pain, Vertigo, Vision Change Respiratory: Denies: Shortness of Breath Cardiovascular: Reports: Palpitations. Denies: Chest Pain GI/Abdominal: Denies: Abdominal Pain, Nausea, Vomiting Musculoskeletal: Reports: Joint Pain (Tailbone discomfort right hand discomfort) , Other. Denies: Neck Pain Skin: Denies: Bruising Neurological: Reports: Headache ED EXAM, HEAD INJURY - Physical Exam Exam: See Below General Appearance: Alert, Anxious (Mild) Head: Scalp Tenderness (Wrist tenderness of the right and posterior scalp). No : Scalp Hematoma, Ahumada's Sign, Facial Swelling, Raccoon Eyes Eyes: Bilateral Eye: PERRL Ears: Normal External Exam Nose: Normal Inspection Throat/Mouth: Normal Inspection Neck: Non-Tender, Full Range of Motion Respiratory: No Respiratory Distress, Lungs Clear Cardiovascular: Tachycardia GI/Abdominal Exam: Soft, Non-Tender Back Exam: Vertebral Tenderness (Tailbone) Extremities: Normal Inspection, Normal Range of Motion Neurologic: No Motor/Sensory Deficits, Normal Mood/Affect, Oriented x 3 Skin: Normal Color, Warm/Dry Course - Orders/Labs/Meds Orders: Active Orders 24 hr Category Date Time Status Head wo Cont [CT] Stat Exams 11/25/17 00:40 Ordered Sacrum Coccyx Min 2V [CR] Routine Exams 11/25/17 00:35 Taken Labs: Laboratory Tests 11/25/17 11/25/17 Range/Units 00:10 00:10 WBC 8.96 (3.98-10.04) K/mm3 RBC 4.66 (3.98-5.22) M/mm3 Hgb 16.1 H (11.2-15.7) gm/L Hct 46.0 H (34.1-44.9) % MCV 98.7 H (79.4-94.8) fl MCH 34.5 H (25.6-32.2) pg MCHC 35.0 (32.2-35.5) g/dl RDW Std Deviation 44.1 (36.4-46.3) fL Plt Count 160 L (182-369) K/mm3 MPV 11.9 (9.4-12.3) fl Neut % (Auto) 65.7 (34.0-71.1) % Lymph % (Auto) 24.2 (19.3-51.7) % [place] % (Auto) 8.3 (4.7-12.5) % Eos % (Auto) 1.5 (0.7-5.8) Baso % (Auto) 0.2 (0.1-1.2) % Neut # (Auto) 5.89 (1.56-6.13) K/mm3 Lymph # (Auto) 2.17 (1.18-3.74) K/mm3 [place] # (Auto) 0.74 H (0.24-0.36) K/mm3 Eos # (Auto) 0.13 (0.04-0.36) K/mm3 Baso # (Auto) 0.02 (0.01-0.08) K/mm3 Sodium 137 (136-145) mEq/L Potassium 2.9 L (3.5-5.1) mEq/L Chloride 100 (98-107) mEq/L Carbon Dioxide 24 (21-32) mEq/L Anion Gap 15.9 H (5-15) BUN 7 (7-18) mg/dL Creatinine 0.9 (0.55-1.02) mg/dL Est Cr Clr Drug Dosing TNP Estimated GFR (MDRD) > 60 (>60) mL/min BUN/Creatinine Ratio 7.8 L (14-18) Glucose 101 (74-106) mg/dL Calcium 9.5 (8.5-10.1) mg/dL Total Bilirubin 0.7 (0.2-1.0) mg/dL AST 30 (15-37) U/L ALT 32 (14-59) U/L Alkaline Phosphatase 75 (46-116) U/L Total Protein 7.7 (6.4-8.2) g/dl Albumin 3.6 (3.4-5.0) g/dl Globulin 4.1 gm/dL Albumin/Globulin Ratio 0.9 L (1-2) Ethyl Alcohol 0.00 (0.00) gm% Meds: Medications Discontinued Medications Generic Name Dose Route Start Last Admin Trade Name Freq PRN Reason Stop Dose Admin Acetaminophen 975 mg 11/25/17 00:40 Tylenol PO 11/25/17 00:41 NOW ONE Sodium Chloride 500 mls @ 999 mls/hr 11/25/17 00:40 Normal Saline IV 11/25/17 01:10 .BOLUS ONE Metoprolol Tartrate 50 mg 11/25/17 00:40 Lopressor PO 11/25/17 00:41 ONETIME ONE Potassium Chloride 20 meq 11/25/17 01:41 Klor-Con M20 PO 11/25/17 01:42 ONETIME ONE - Re-Assessments/Exams Free Text/Narrative Re-Assessment/Exam: 11/25/17 02:04 Heart rate has steadily come down with IV fluid, she also was given metoprolol 25 mg by mouth, Tylenol 975 by mouth area was told that she does feel much better. Discharge instructions as documented. Departure - Departure Time of Disposition: 01:40 Disposition: Home, Self-Care 01 Condition: Fair Clinical Impression: Palpitations, Hypokalemia Fall Qualifiers: Encounter type: initial encounter Qualified Code(s): W19.XXXA - Unspecified fall, initial encounter Scalp contusion Qualifiers: Encounter type: initial encounter Qualified Code(s): S00.03XA - Contusion of scalp, initial encounter Coccygeal contusion Qualifiers: Encounter type: initial encounter Qualified Code(s): S30.0XXA - Contusion of lower back and pelvis, initial encounter - Discharge Information Referrals: PCP,None [Primary Care Provider] - Forms: ED Department Discharge Additional Instructions: CT of your head this evening was normal, x-rays of your tailbone, no fracture. Your potassium was low at 2.9. Eat some bananas, eat plenty of fruit and vegetables. Potatoes also are a very high source of potassium. Drink Plenty of water to maintain hydration. You may take Tylenol 2-3 times daily as needed for discomfort. May also alternate ice and heat to areas of discomfort as needed. Follow-up clinic as needed, return to ED as needed if symptoms worsening in any way. - My Orders Last 24 Hours: My Active Orders 11/25/17 00:35 Sacrum Coccyx Min 2V [CR] Routine 11/25/17 00:40 Head wo Cont [CT] Stat - Assessment/Plan Last 24 Hours: My Active Orders 11/25/17 00:35 Sacrum Coccyx Min 2V [CR] Routine 11/25/17 00:40 Head wo Cont [CT] Stat
[2017-11-25] MEDS ORDERED: Potassium Chloride 20 MEQ Tab.ER PO ONE (01:41)
[2017-11-25 03:16] VITALS: BP 129/89
--- NOTE | 2017-11-26 12:54 | CT ---
Head CT Technique: Multiple axial sections through the brain were obtained. Intravenous contrast was not utilized. Comparison: No prior intracranial imaging. Findings: Ventricles along with basal cisterns and sulci over the convexities are within normal limits for the patient's age. No abnormal parenchymal densities are seen. No evidence of intracranial hemorrhage. No midline shift or mass effect is seen. Visualized sinuses are clear. No acute calvarial abnormality is seen. Impression: 1. Nothing acute is seen on noncontrast head CT exam. Diagnostic code #1 I agree with preliminary report from ad, finalized at 11/25/17, 1:43 AM Central Time
--- NOTE | 2017-11-26 12:54 | CR ---
Sacrum and coccyx: Three views of the sacrum and coccyx were obtained. Comparison: No prior study. No fracture or other bony abnormality is seen. Sacroiliac joints are normal. Impression: 1. No abnormality is appreciated on three-view sacrum and coccyx study. Diagnostic code #1
== END 2017-11-25 02:30 | disposition home or self-care (01) ==
LOC: JD.ED 23:10 → EEVIPCON 23:10 → JD.ED 11-25 02:30
DX: S00.03XA Contusion of scalp, initial encounter (principal); S30.0XXA Contusion of lower back and pelvis, initial encounter; E66.9 Obesity, unspecified; R00.2 Palpitations; E87.6 Hypokalemia; Z88.8 Allergy status to other drugs, medicaments and biological substances; Z79.899 Other long term (current) drug therapy; Z88.1 Allergy status to other antibiotic agents; W10.9XXA Fall (on) (from) unspecified stairs and steps, initial encounter
CPT/HCPCS: 36415; 70450; 72220; 80053; 85025; 96360; 99284; A9270; G0480; J7040; 99283

== ENCOUNTER 2018-03-10 18:52 | Emergency (ER) | payer SELFPAY ==
[2018-03-10 19:02] VITALS: BP 167/104
--- NOTE | 2018-03-10 19:19 | EDM.PDOC ---
ED HPI GENERAL MEDICAL PROBLEM - General Chief Complaint: Abdominal Pain Stated Complaint: ABDOMINAL PAIN Time Seen by Provider: 03/10/18 19:07 Source of Information: Reports: Patient History Limitations: Reports: No Limitations - History of Present Illness INITIAL COMMENTS - FREE TEXT/NARRATIVE: 28-year-old female presents for evaluation and treatment of abdominal pain. Patient reports that the abdominal pain started suddenly around 10 or 11 AM this morning. Reports is located in the epigastric area with radiation into her lower abdomen. Describes it as a sharp pain. It is intermittent. She reports associated symptoms of nausea and feeling "shaky ." no vomiting. No radiation to her chest or back. She denies any chest pain or shortness of breath. She reports around 10 AM this when she was eating some lemon chicken. This seemed to start her abdominal discomfort. She did try to drink some water but that worsen her pain. No fevers, diarrhea, dysuria or hematuria. Patient reports a past medical history of pancreatitis about 8 years ago. Patient reports past surgical history of a laparoscopic cholecystectomy, exploratory lap and . Onset: Today, Sudden Location: Reports: Abdomen Upper Abdomen Pain Score (Numeric/FACES): 4 - Related Data Allergies Allergy/AdvReac Type Severity Reaction Status Date / Time azithromycin [From Zithromax] Allergy Nausea Verified 03/10/18 19:02 ibuprofen Allergy Hives Verified 03/10/18 19:02 Home Meds: Home Meds predniSONE [Prednisone] 20 mg PO BID #10 tablet 03/10/18 [Rx] traMADol [Ultram] 50 mg PO Q6H PRN #15 tab 03/10/18 [Rx] Past Medical History Cardiovascular History: Reports: None Respiratory History: Reports: None Gastrointestinal History: Reports: Pancreatitis Other Gastrointestinal History: 5 years ago Genitourinary History: Reports: None [employer] History: Reports: 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, 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 Musculoskeletal History: Reports: Fibromyalgia Neurological History: Reports: None Psychiatric History: Reports: Anxiety Endocrine/Metabolic History: Reports: Obesity/BMI 30+ Immunologic History: Reports: SLE Oncologic (Cancer) History: Reports: None Dermatologic History: Reports: None - Infectious Disease History Infectious Disease History: Reports: Chicken Pox - Past Surgical History HEENT Surgical History: Reports: Adenoidectomy GI Surgical History: Reports: Cholecystectomy Female Surgical History: Reports: Section Social & Family History - Family History Family Medical History: Noncontributory - Tobacco Use Smoking Status *Q: Current Every Day Smoker Years of Tobacco use: 7 Packs/Tins Daily: 0.5 - Caffeine Use Caffeine Use: Reports: None - Recreational Drug Use Recreational Drug Use: No - Living Situation & Occupation Living situation: Reports: with Family, , with Spouse Occupation: Employed ED ROS GENERAL - Review of Systems Review Of Systems: See Below Constitutional: Reports: Malaise, Decreased Appetite Respiratory: Reports: Shortness of Breath Cardiovascular: Reports: Chest Pain GI/Abdominal: Reports: Abdominal Pain (epigastric), Decreased Appetite, Nausea. Denies: Diarrhea, Vomiting : Denies: Dysuria, Hematuria Musculoskeletal: Denies: Back Pain ED EXAM, GI/ABD - Physical Exam Exam: See Below Exam Limited By: No Limitations General Appearance: Alert, WD/WN, No Apparent Distress Respiratory/Chest: No Respiratory Distress, Lungs Clear, Normal Breath Sounds Cardiovascular: Normal Peripheral Pulses, Regular Rate, Rhythm GI/Abdominal Exam: Normal Bowel Sounds, Soft, Tender (diffuse, greatest in the epigastric area) Neurological: Alert, Oriented, Normal Cognition Psychiatric: Normal Affect, Normal Mood Skin Exam: Warm, Dry, Normal Color Course - Vital Signs Last Recorded V/S: Last Vital Signs Temp 98.6 F 03/10/18 18:57 Pulse 96 03/10/18 18:57 Resp 18 03/10/18 18:57 BP 167/104 H 03/10/18 18:57 Pulse Ox 99 03/10/18 18:57 - Orders/Labs/Meds Orders: Active Orders 24 hr Category Date Time Status Peripheral IV Care [RC] . DIRECTED Care 03/10/18 19:21 Active Abdomen Pelvis w Cont [CT] Stat Exams 03/10/18 19:20 Taken UA W/MICROSCOPIC [URIN] Stat Lab 03/10/18 19:20 Ordered Sodium Chloride 0.9% [Saline Flush] Med 03/10/18 19:21 Active 10 ml FLUSH ASDIRECTED PRN Peripheral IV Insertion Adult [OM.PC] Routine Oth 03/10/18 19:21 Ordered Medication Orders Sodium Chloride (Saline Flush) 10 ml FLUSH ASDIRECTED PRN PRN Reason: Keep Vein Open Last Admin: 03/10/18 19:39 Dose: 10 ml Labs: Laboratory Tests 03/10/18 03/10/18 03/10/18 Range/Units 20:00 20:00 20:00 WBC 7.31 (3.98-10.04) K/mm3 RBC 3.99 (3.98-5.22) M/mm3 Hgb 14.9 (11.2-15.7) gm/L Hct 43.5 (34.1-44.9) % MCV 109.0 H (79.4-94.8) fl MCH 37.3 H (25.6-32.2) pg MCHC 34.3 (32.2-35.5) g/dl RDW Std Deviation 51.9 H (36.4-46.3) fL Plt Count 140 L (182-369) K/mm3 MPV 10.8 (9.4-12.3) fl Neutrophils % (Manual) 63 H (40-60) % Band Neutrophils % 0 (0-10) % Lymphocytes % (Manual) 30 (20-40) % Atypical Lymphs % 0 % Monocytes % (Manual) 3 (2-10) % Eosinophils % (Manual) 3 (0.7-5.8) % Basophils % (Manual) 1 (0.1-1.2) Platelet Estimate Adequate Plt Morphology Comment Normal Macrocytosis 1+ slight RBC Morph Comment Not Reportable Sodium 137 (136-145) mEq/L Potassium 3.6 (3.5-5.1) mEq/L Chloride 102 (98-107) mEq/L Carbon Dioxide 23 (21-32) mEq/L Anion Gap 15.6 H (5-15) BUN 11 (7-18) mg/dL Creatinine 0.7 (0.55-1.02) mg/dL Est Cr Clr Drug Dosing 103.32 mL/min Estimated GFR (MDRD) > 60 (>60) mL/min BUN/Creatinine Ratio 15.7 (14-18) Glucose 84 (74-106) mg/dL Calcium 9.4 (8.5-10.1) mg/dL Total Bilirubin 1.1 H (0.2-1.0) mg/dL AST 97 H (15-37) U/L ALT 100 H (14-59) U/L Alkaline Phosphatase 80 (46-116) U/L C-Reactive Protein 0.2 (<1.0) mg/dL Total Protein 7.7 (6.4-8.2) g/dl Albumin 3.5 (3.4-5.0) g/dl Globulin 4.2 gm/dL Albumin/Globulin Ratio 0.8 L (1-2) Lipase 205 (73-393) U/L HCG, Qual Negative (NEGATIVE) Meds: Medications Generic Name Dose Route Start Last Admin Trade Name Irene PRN Reason Stop Dose Admin Sodium Chloride 10 ml 03/10/18 19:21 03/10/18 19:39 Saline Flush FLUSH 10 ml ASDIRECTED PRN Administration Keep Vein Open Discontinued Medications Generic Name Dose Route Start Last Admin Trade Name Irene PRN Reason Stop Dose Admin Al Hydroxide/Mg Hydroxide 30 0 ml 03/10/18 21:16 03/10/18 21:32 ml/ Lidocaine HCl 15 ml PO 03/10/18 21:17 45 ml ONETIME ONE Administration Diatrizoate Meglum/Diatrizoate Sod 90 ml 03/10/18 20:44 03/10/18 20:45 Gastrografin 37% PO 03/10/18 20:45 90 ml ONETIME ONE Administration Famotidine 20 mg 03/10/18 21:16 03/10/18 21:32 Pepcid IVPUSH 03/10/18 21:17 20 mg ONETIME ONE Administration Hydromorphone HCl 0.5 mg 03/10/18 19:20 03/10/18 19:40 Dilaudid IVPUSH 03/10/18 19:21 0.5 mg ONETIME ONE Administration Hydromorphone HCl 0.5 mg 03/10/18 21:44 03/10/18 21:58 Dilaudid IVPUSH 03/10/18 21:45 0.5 mg ONETIME ONE Administration Sodium Chloride 1,000 mls @ 999 mls/hr 03/10/18 19:20 03/10/18 19:37 Normal Saline IV 03/10/18 20:20 999 mls/hr ONETIME ONE Administration Iopamidol 100 ml 03/10/18 20:44 03/10/18 20:45 Isovue-300 (61%) IVPUSH 03/10/18 20:45 100 ml ONETIME ONE Administration Ondansetron HCl 4 mg 03/10/18 19:20 03/10/18 19:38 Zofran IVPUSH 03/10/18 19:21 4 mg ONETIME ONE Administration Prednisone 40 mg 03/10/18 21:44 03/10/18 22:00 Prednisone PO 03/10/18 21:45 40 mg ONETIME ONE Administration Sodium Chloride 10 ml 03/10/18 20:44 03/10/18 20:46 Saline Flush FLUSH 03/10/18 20:45 10 ml ONETIME ONE Administration - Radiology Interpretation Free Text/Narrative:: CT of the abdomen and pelvis impression per vrad: mild distal ileitis. Nonspecific. Most likely either infectious or inflammatory bowel disease. - Re-Assessments/Exams Free Text/Narrative Re-Assessment/Exam: 03/10/18 22:04 Reviewed the labs and imaging with the patient. she reports some relief with the Dilaudid but did not last long. No relief with the GI cocktail and Pepcid. I'm recommending symptomatic care. Will give first short course of prednisone, she is unable to take any NSAIDs due to allergy. She is to follow-up Friday or Friday if her symptoms have not improved. It is possible that this is inflammatory bowel disease, most likely felt to be a viral ileitis. Will discharge home at this time. Discharge instructions as documented. Departure - Departure Time of Disposition: 21:51 Disposition: Home, Self-Care 01 Condition: Fair Clinical Impression: Ileitis - Discharge Information *PRESCRIPTION DRUG MONITORING PROGRAM REVIEWED*: Yes *COPY OF PRESCRIPTION DRUG MONITORING REPORT IN PATIENT ZENON: No Prescriptions: predniSONE [Prednisone] 20 mg PO BID #10 tablet traMADol [Ultram] 50 mg PO Q6H PRN #15 tab PRN Reason: Pain Instructions: Viral Gastroenteritis, Adult, Abdominal Pain, Adult, [id number] Referrals: Jael Hale TRAUMA PROGRAM MANAGER [Primary Care Provider] - Forms: ED Department Discharge Additional Instructions: You were given medication in the ER that can affect your ability to drive and operate machinery. Do not drive or operate machinery within 12 hours of taking prescription narcotic pain medication. Tramadol 1-2 tabs every 6 hours as needed for pain not relieved by over-the- counter Tylenol. Do not take more than 4 g of Tylenol from all sources in 1 day. Tramadol can be habit-forming, take as few of these as needed to control your pain. Do not drive or operate machinery within 10 hours of taking tramadol. Prednisone 1 tab twice a day for 5 days. First dose was given in the ER. Start your perception tomorrow. Recommend clear fluids and a bland diet. [place] diet recommendations include crackers, soup broth, bread, toast, bananas etc. recommend yogurt or probiotic. If your symptoms persist beyond 5 days follow-up with family medicine. at [facility] recommend Dr. Strickland, the call [phone] to schedule with her. At [facility] recommend Rosemary Hennessy. Call [phone] to schedule with her. Please return to the ER if your symptoms change or worsen. - My Orders Last 24 Hours: My Active Orders 03/10/18 19:20 Abdomen Pelvis w Cont [CT] Stat UA W/MICROSCOPIC [URIN] Stat 03/10/18 19:21 Peripheral IV Care [RC] . DIRECTED Sodium Chloride 0.9% [Saline Flush] 10 ml FLUSH ASDIRECTED PRN Peripheral IV Insertion Adult [OM.PC] Routine - Assessment/Plan Last 24 Hours: My Active Orders 03/10/18 19:20 Abdomen Pelvis w Cont [CT] Stat UA W/MICROSCOPIC [URIN] Stat 03/10/18 19:21 Peripheral IV Care [RC] . DIRECTED Sodium Chloride 0.9% [Saline Flush] 10 ml FLUSH ASDIRECTED PRN Peripheral IV Insertion Adult [OM.PC] Routine
[2018-03-10] MEDS ORDERED: Ondansetron 4 MG/2 ML SDV IVPUSH ONE (19:20)
[2018-03-10] MEDS ORDERED: Sodium Chloride 0.9% 1,000 ML IV ONE (19:20)
[2018-03-10] MEDS ORDERED: HYDROmorphone 0.5 MG/0.5 ML SYRINGE IVPUSH ONE ×2 (19:20→21:44)
[2018-03-10] MEDS ORDERED: Sodium Chloride 0.9% 10 ML Syringe FLUSH PRN (19:21)
[2018-03-10] MEDS ORDERED: Diatrizoate Meglumine/Diatrizoate Sodium 37% 120 ML Bottle PO ONE (20:44)
[2018-03-10] MEDS ORDERED: Sodium Chloride 0.9% 10 ML Syringe FLUSH ONE (20:44)
[2018-03-10] MEDS ORDERED: Iopamidol 612 MG/ML 100 ML Bottle IVPUSH ONE (20:44)
[2018-03-10] MEDS ORDERED: Alum Hydrox/Mag Hydrox/Simeth 30 ML, Lidocaine 2% 15 ML PO ONE ×2 (21:16)
[2018-03-10] MEDS ORDERED: Famotidine 20 MG/2 ML SDV IVPUSH ONE (21:16)
[2018-03-10] MEDS ORDERED: predniSONE 20 MG Tab PO ONE (21:44)
--- NOTE | 2018-03-11 10:29 | CT ---
CT abdomen and pelvis Technique: Multiple axial sections were obtained from the top of the liver inferiorly through the pubic symphysis. Intravenous and oral contrast was utilized. Delayed images were obtained through the bladder. Comparison: No prior CT abdomen or pelvis exam. Findings: Visualized lung bases show nothing acute. Liver shows no focal abnormality. Spleen appears within normal limits. Adrenal glands show no nodule. Pancreas is within normal limits. Surgical clips are seen from prior cholecystectomy. Kidneys show symmetric contrast enhancement without hydronephrosis or mass. Aorta shows no aneurysm. No retroperitoneal adenopathy or mesenteric abnormalities are seen. Appendix is seen which appears normal in size. Mild bowel wall thickening seen within the distal ileum. Small amount of free fluid noted within the cul-de-sac most likely being physiologic. No inflammatory change is seen. No bowel dilatation is seen. Delayed images show contrast within the bladder. Bone window settings were reviewed which appear within normal limits for the patient's age. Impression: 1. Mild bowel wall thickening within the distal ileum most likely representing inflammatory bowel disease but is otherwise nonspecific for ileitis. 2. Free fluid within the pelvis most likely physiologic. 3. Other normal findings as noted above. Diagnostic code #3 I agree with preliminary report from [facility], finalized on 03/10/18, 10:08 PM Central Time
== END 2018-03-10 22:08 | disposition home or self-care (01) ==
LOC: JD.ED 18:52
DX: K52.9 Noninfective gastroenteritis and colitis, unspecified (principal); F17.210 Nicotine dependence, cigarettes, uncomplicated; Z88.1 Allergy status to other antibiotic agents; Z88.6 Allergy status to analgesic agent
CPT/HCPCS: 36415; 74177; 80053; 83690; 84703; 85007; 85027; 86140; 96361; 96374; 96375; 96376; 99284; A9270; J1170; J2405; J3490; J7040; J7050; Q9963; Q9967

== ENCOUNTER 2018-08-03 16:24 | Emergency (ER) | payer MEDICAID, OTHER ==
[2018-08-03 16:37] VITALS: BP 145/97
[2018-08-03] MEDS ORDERED: Sodium Chloride 0.9% 10 ML Syringe FLUSH PRN (17:08)
[2018-08-03] MEDS ORDERED: Sodium Chloride 0.9% 1,000 ML IV STA (17:08)
[2018-08-03] MEDS ORDERED: Ondansetron 4 MG/2 ML SDV IVPUSH ONE (17:08)
[2018-08-03] MEDS ORDERED: HYDROmorphone 1 MG/ML Syringe IVPUSH ONE ×2 (17:10→18:14)
--- NOTE | 2018-08-03 17:15 | EDM.PDOC ---
ED HPI GENERAL MEDICAL PROBLEM - General Chief Complaint: Abdominal Pain Stated Complaint: PRANCREAS PAIN Time Seen by Provider: 08/03/18 16:34 Source of Information: Reports: Patient History Limitations: Reports: No Limitations - History of Present Illness INITIAL COMMENTS - FREE TEXT/NARRATIVE: The patient presents with abdominal pain, nausea and vomiting. This started about a week ago. The patient has a history of chronic pancreatitis cause from alcohol. She was last admitted in May. She does admit last week she had some energy drinks with a little alcohol in it. Now the pain has increased in the LUQ and radiates to her back and she has nausea and vomiting. She cannot keep anything down. She has no fever but she does have chills. She has no chest pain or shortness of breath. She has no dysuria or hematuria. Onset: Gradual Duration: Week(s): (1) Location: Reports: Abdomen Quality: Reports: Sharp Severity: Moderate Improves with: Reports: None Worsens with: Reports: None Associated Symptoms: Reports: Fever/Chills, Nausea/Vomiting. Denies: Chest Pain , Cough, Headaches, Shortness of Breath Epigastric Pain Score (Numeric/FACES): 8 - Related Data Allergies Allergy/AdvReac Type Severity Reaction Status Date / Time adhesive tape Allergy Itching Verified 08/03/18 16:37 ibuprofen Allergy Hives Verified 08/03/18 16:37 azithromycin [From Zithromax] AdvReac Nausea Verified 08/03/18 16:37 Home Meds: Home Meds Ondansetron [Zofran ODT] 4 mg PO Q6H PRN #20 tab.dis 08/03/18 [Rx] Past Medical History Cardiovascular History: Reports: None Respiratory History: Reports: None Gastrointestinal History: Reports: Pancreatitis Other Gastrointestinal History: 5 years ago Genitourinary History: Reports: None [employer] History: Reports: 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, 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 Musculoskeletal History: Reports: Fibromyalgia Neurological History: Reports: None Psychiatric History: Reports: Anxiety Endocrine/Metabolic History: Reports: Obesity/BMI 30+ Immunologic History: Reports: SLE Oncologic (Cancer) History: Reports: None Dermatologic History: Reports: None - Infectious Disease History Infectious Disease History: Reports: Chicken Pox - Past Surgical History HEENT Surgical History: Reports: Adenoidectomy Female Surgical History: Reports: Section Social & Family History - Family History Family Medical History: Noncontributory - Tobacco Use Smoking Status *Q: Current Every Day Smoker Years of Tobacco use: 8 Packs/Tins Daily: 0.5 - Caffeine Use Caffeine Use: Reports: Soda - Recreational Drug Use Recreational Drug Use: No - Living Situation & Occupation Living situation: Reports: (but ), with Spouse, with Family Occupation: Employed ED ROS GENERAL - Review of Systems Review Of Systems: See Below Constitutional: Reports: Chills. Denies: Fever HEENT: Reports: No Symptoms Respiratory: Reports: No Symptoms Cardiovascular: Reports: No Symptoms Endocrine: Reports: No Symptoms GI/Abdominal: Reports: Abdominal Pain, Nausea, Vomiting. Denies: Diarrhea : Reports: No Symptoms Musculoskeletal: Reports: No Symptoms ED EXAM, GI/ABD - Physical Exam Exam: See Below Exam Limited By: No Limitations General Appearance: Alert, No Apparent Distress Ears: Normal External Exam Nose: Normal Inspection Head: Atraumatic, Normocephalic Neck: Normal Inspection Respiratory/Chest: No Respiratory Distress, Lungs Clear, Normal Breath Sounds Cardiovascular: Regular Rate, Rhythm, No Edema, No Murmur GI/Abdominal Exam: Soft, No Organomegaly, No Mass, Tender (Moderate tenderness to the upper abdomen) Course - Vital Signs Last Recorded V/S: Last Vital Signs Temp 98.9 F 08/03/18 16:34 Pulse 87 08/03/18 16:34 Resp 16 08/03/18 16:34 BP 145/97 H 08/03/18 16:34 Pulse Ox 98 08/03/18 16:34 - Orders/Labs/Meds Orders: Active Orders 24 hr Category Date Time Status Peripheral IV Care [RC] . DIRECTED Care 08/03/18 17:09 Active UA W/MICROSCOPIC [URIN] Stat Lab 08/03/18 18:29 Stop Req Sodium Chloride 0.9% [Normal Saline] 1,000 ml Med 08/03/18 18:09 Active IV ONETIME Sodium Chloride 0.9% [Saline Flush] Med 08/03/18 17:08 Active 10 ml FLUSH ASDIRECTED PRN ED Antiemetic Medication Reflex [OM.PC] Stat Oth 08/03/18 17:09 Ordered Peripheral IV Insertion Adult [OM.PC] Stat Oth 08/03/18 17:08 Ordered Medication Orders Sodium Chloride (Normal Saline) 1,000 mls @ 1,000 mls/hr IV ONETIME ONE Stop: 08/03/18 19:08 Last Admin: 08/03/18 18:29 Dose: 1,000 mls/hr Sodium Chloride (Saline Flush) 10 ml FLUSH ASDIRECTED PRN PRN Reason: Keep Vein Open Last Admin: 08/03/18 17:20 Dose: 10 ml Labs: Laboratory Tests 08/03/18 08/03/18 Range/Units 17:18 17:18 WBC 5.91 (3.98-10.04) K/mm3 RBC 3.64 L (3.98-5.22) M/mm3 Hgb 13.4 (11.2-15.7) gm/L Hct 40.6 (34.1-44.9) % MCV 111.5 H (79.4-94.8) fl MCH 36.8 H (25.6-32.2) pg MCHC 33.0 (32.2-35.5) g/dl RDW Std Deviation 66.5 H (36.4-46.3) fL Plt Count 133 L (182-369) K/mm3 MPV 11.0 (9.4-12.3) fl Neut % (Auto) 67.8 (34.0-71.1) % Lymph % (Auto) 22.2 (19.3-51.7) % [place] % (Auto) 8.0 (4.7-12.5) % Eos % (Auto) 1.5 (0.7-5.8) Baso % (Auto) 0.5 (0.1-1.2) % Neut # (Auto) 4.01 (1.56-6.13) K/mm3 Lymph # (Auto) 1.31 (1.18-3.74) K/mm3 [place] # (Auto) 0.47 H (0.24-0.36) K/mm3 Eos # (Auto) 0.09 (0.04-0.36) K/mm3 Baso # (Auto) 0.03 (0.01-0.08) K/mm3 Manual Slide Review Abnormal smear Sodium 136 (136-145) mEq/L Potassium 3.8 (3.5-5.1) mEq/L Chloride 100 (98-107) mEq/L Carbon Dioxide 24 (21-32) mEq/L Anion Gap 15.8 H (5-15) BUN 10 (7-18) mg/dL Creatinine 0.6 (0.55-1.02) mg/dL Est Cr Clr Drug Dosing 115.47 mL/min Estimated GFR (MDRD) > 60 (>60) mL/min BUN/Creatinine Ratio 16.7 (14-18) Glucose 95 (74-106) mg/dL Calcium 9.7 (8.5-10.1) mg/dL Total Bilirubin 2.0 H (0.2-1.0) mg/dL AST 255 H (15-37) U/L ALT 105 H (14-59) U/L Alkaline Phosphatase 208 H (46-116) U/L Total Protein 7.9 (6.4-8.2) g/dl Albumin 3.4 (3.4-5.0) g/dl Globulin 4.5 gm/dL Albumin/Globulin Ratio 0.8 L (1-2) Lipase 1211 H (73-393) U/L Ethyl Alcohol 0.00 (0.00) gm% Meds: Medications Generic Name Dose Route Start Last Admin Trade Name Freq PRN Reason Stop Dose Admin Sodium Chloride 1,000 mls @ 1,000 mls/hr 08/03/18 18:09 08/03/18 18:29 Normal Saline IV 08/03/18 19:08 1,000 mls/hr ONETIME ONE Administration Sodium Chloride 10 ml 08/03/18 17:08 08/03/18 17:20 Saline Flush FLUSH 10 ml ASDIRECTED PRN Administration Keep Vein Open Discontinued Medications Generic Name Dose Route Start Last Admin Trade Name Freq PRN Reason Stop Dose Admin Hydromorphone HCl 1 mg 08/03/18 17:10 08/03/18 17:21 Dilaudid IVPUSH 08/03/18 17:11 1 mg ONETIME ONE Administration Hydromorphone HCl 0.5 mg 08/03/18 18:14 08/03/18 18:32 Dilaudid IVPUSH 08/03/18 18:15 0.5 mg ONETIME ONE Administration Sodium Chloride 1,000 mls @ 1,000 mls/hr 08/03/18 17:08 08/03/18 17:20 Normal Saline IV 08/03/18 18:07 1,000 mls/hr .BOLUS STA Administration Ondansetron HCl 4 mg 08/03/18 17:08 08/03/18 17:21 Zofran IVPUSH 08/03/18 17:09 4 mg ONETIME ONE Administration Oxycodone/Acetaminophen 1 tab 08/03/18 18:45 Percocet 325-5 Mg PO 08/03/18 18:46 ONETIME ONE - Re-Assessments/Exams Free Text/Narrative Re-Assessment/Exam: 08/03/18 17:15 I ordered an IV NS 1L bolus, zofran 4mg IV, dilaudid 1mg IV and labs. 08/03/18 18:43 Her WBC was normal along with her Hgb. Her platelets were a little low at 133. Her anion gap was elevated at 15.8. Her total bili was elevated at 2. Her AST was elevated at 255. Her ALT was elevated at 105. Her Alk Phos was elevated at 208. Her lipase was elevated at 1211. Her ETOH is zero. Her pain was coming back so I ordered more dilaudid. She will try some ice chips here. I will discharge her to home. Departure - Departure Time of Disposition: 19:00 Disposition: Home, Self-Care 01 Condition: Good Clinical Impression: Pancreatitis, recurrent - Discharge Information *PRESCRIPTION DRUG MONITORING PROGRAM REVIEWED*: No *COPY OF PRESCRIPTION DRUG MONITORING REPORT IN PATIENT ZENON: No Prescriptions: Ondansetron [Zofran ODT] 4 mg PO Q6H PRN #20 tab.dis PRN Reason: Nausea\vomiting Referrals: PCP,None [Ordering Only Provider] - Leslie Gutiérrez PA-C [Primary Care Provider] - 1 Week Forms: ED Department Discharge Additional Instructions: Start out with clear liquids for a couple days and then advance as tolerated. Take the zofran as needed for nausea and vomiting. Take the percocet as needed for pain. Please return if you are worse. - My Orders Last 24 Hours: My Active Orders 08/03/18 17:08 Sodium Chloride 0.9% [Saline Flush] 10 ml FLUSH ASDIRECTED PRN Peripheral IV Insertion Adult [OM.PC] Stat 08/03/18 17:09 Peripheral IV Care [RC] . DIRECTED ED Antiemetic Medication Reflex [OM.PC] Stat 08/03/18 18:09 Sodium Chloride 0.9% [Normal Saline] 1,000 ml IV ONETIME 08/03/18 18:29 UA W/MICROSCOPIC [URIN] Stat - Assessment/Plan Last 24 Hours: My Active Orders 08/03/18 17:08 Sodium Chloride 0.9% [Saline Flush] 10 ml FLUSH ASDIRECTED PRN Peripheral IV Insertion Adult [OM.PC] Stat 08/03/18 17:09 Peripheral IV Care [RC] . DIRECTED ED Antiemetic Medication Reflex [OM.PC] Stat 08/03/18 18:09 Sodium Chloride 0.9% [Normal Saline] 1,000 ml IV ONETIME 08/03/18 18:29 UA W/MICROSCOPIC [URIN] Stat
[2018-08-03] MEDS ORDERED: Sodium Chloride 0.9% 1,000 ML IV ONE (18:09)
[2018-08-03] MEDS ORDERED: Acetaminophen/oxyCODONE 325-5 MG Tab PO ONE (18:45)
== END 2018-08-03 19:49 | disposition home or self-care (01) ==
LOC: JD.ED 16:24
DX: K86.1 Other chronic pancreatitis (principal); F17.210 Nicotine dependence, cigarettes, uncomplicated; Z88.8 Allergy status to other drugs, medicaments and biological substances; Z88.1 Allergy status to other antibiotic agents
CPT/HCPCS: 36415; 80053; 83690; 85025; 96361; 96374; 96375; 99284; A9270; G0480; J1170; J2405; J7040

== ENCOUNTER 2018-08-04 12:57 | Emergency (ER) | payer MEDICAID ==
[2018-08-04] MEDS ORDERED: Sodium Chloride 0.9% 1,000 ML IV SCH ×2 (14:30→17:30)
[2018-08-04] MEDS ORDERED: HYDROmorphone 1 MG/ML Syringe IVPUSH ONE ×2 (14:43→17:45)
--- NOTE | 2018-08-04 14:43 | EDM.PDOC ---
ED HPI GENERAL MEDICAL PROBLEM - General Chief Complaint: General Stated Complaint: PANCREASE Time Seen by Provider: 08/04/18 14:04 Source of Information: Reports: Patient, Old Records (ED visit 08/03/2018), RN Notes Reviewed History Limitations: Reports: No Limitations - History of Present Illness INITIAL COMMENTS - FREE TEXT/NARRATIVE: Medical records indicate that the patient was seen in this ED yesterday, 2018, with a 1-week history of upper abdominal pain, nausea, and vomiting. The patient's lipase was found to be elevated at 1211, but the remainder of her workup is grossly unremarkable. Patient was given IV fluid, Zofran, 1.5 mg of Dilaudid, and a single tablet of Percocet. She was discharged home with a prescription for Percocet, but states that she did not fill it because she could not afford it. She states that her discharge instructions instructed her to return to the ED if her symptoms worsened, which, she states that because she did not fill her Percocet prescription, they have. She presents complaining of continued upper abdominal pain, nausea without emesis, and chills without fever. No urinary symptoms. She states that ever since she underwent a cholecystectomy in 2016, she has chronic watery diarrhea which is unchanged. Review of the [place] PMPi finds that the patient filled a prescription for 24 tablets of oxycodone 5 mg, prescribed by her PCP, Leslie Gutiérrez on 2017, yesterday. The patient acknowledged that she has a "standing prescription " for oxycodone, but denies filling the prescription yesterday. I called the [facility], and they confirmed that they filled the prescription for oxycodone, but that the prescription has not yet been picked up. The patient's PCP is Leslie Gutiérrez. The patient's Plate Mill Mill Hand is Dr. Estefanía Goldsmith, in [place]. The patient's Rail Track Maintainer is in [place], but she does not recall his name. 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: 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 (laparoscopy confirmed), Psychiatric History: Reports: Addiction (alcohol), Anxiety, Other (See Below) ( Fibromyalgia) Immunologic History: Reports: SLE - Infectious Disease History Infectious Disease History: Reports: Chicken Pox - Past Surgical History HEENT Surgical History: Reports: Adenoidectomy GI Surgical History: Reports: Cholecystectomy (2017) Female Surgical History: Reports: Section (x 2), Other (See Below) ( Laparoscopy for endometriosis) Social & Family History - Family History Family Medical History: Noncontributory - Tobacco Use Smoking Status *Q: Current Every Day Smoker Years of Tobacco use: 10 Packs/Tins Daily: 0.5 - Caffeine Use Caffeine Use: Reports: Soda - Alcohol Use Alcohol Use History: Yes Alcohol Use Frequency: Binges - Recreational Drug Use Recreational Drug Use: Yes Drug Use in Last 12 Months: No Recreational Drug Type: Reports: Marijuana/Hashish (last smoked "years" ago) - Living Situation & Occupation Living situation: Reports: (), with Family Occupation: Unemployed ED ROS GENERAL - Review of Systems Review Of Systems: ROS reveals no pertinent complaints other than HPI. ED EXAM, GI/ABD - Physical Exam Exam: See Below Exam Limited By: No Limitations General Appearance: Alert, WD/WN, No Apparent Distress Eyes: Bilateral: Normal Appearance, EOMI Ears: Normal External Exam, Hearing Grossly Normal Nose: Normal Inspection Throat/Mouth: Normal Inspection, Normal Lips, Normal Voice, No Airway Compromise Head: Atraumatic, Normocephalic Neck: Normal Inspection, Full Range of Motion Respiratory/Chest: No Respiratory Distress, Lungs Clear, Normal Breath Sounds, No Accessory Muscle Use Cardiovascular: Normal Peripheral Pulses, Regular Rate, Rhythm, No Edema, No Gallop, No JVD, No Murmur, No Rub GI/Abdominal Exam: Normal Bowel Sounds, Soft, No Organomegaly, No Distention, No Abnormal Bruit, No Mass, Tender (Epigastric area only. Nontender elsewhere.) (Female) Exam: Deferred Rectal (Female) Exam: Deferred Back Exam: Normal Inspection, Full Range of Motion. No: CVA Tenderness (L), CVA Tenderness (R) Extremities: Normal Inspection, Normal Range of Motion, No Pedal Edema, Normal Capillary Refill Neurological: Alert, Oriented, Normal Cognition, No Motor/Sensory Deficits Psychiatric: Tearful Skin Exam: Warm, Dry, Intact, Normal Color, No Rash Course - Vital Signs Last Recorded V/S: Last Vital Signs Temp 37.1 C 08/04/18 13:08 Pulse 84 08/04/18 13:08 Resp 18 08/04/18 13:08 BP 141/98 H 08/04/18 13:08 Pulse Ox 100 08/04/18 13:08 - Orders/Labs/Meds Orders: Active Orders 24 hr Category Date Time Status Sodium Chloride 0.9% [Normal Saline] 1,000 ml Med 08/04/18 17:30 Active IV ASDIRECTED Medication Orders Sodium Chloride (Normal Saline) 1,000 mls @ 250 mls/hr IV ASDIRECTED ALISA Labs: Laboratory Tests 08/04/18 08/04/18 Range/Units 15:00 15:00 WBC 6.25 (3.98-10.04) K/mm3 RBC 3.68 L (3.98-5.22) M/mm3 Hgb 13.6 (11.2-15.7) gm/L Hct 41.1 (34.1-44.9) % MCV 111.7 H (79.4-94.8) fl MCH 37.0 H (25.6-32.2) pg MCHC 33.1 (32.2-35.5) g/dl RDW Std Deviation 67.1 H (36.4-46.3) fL Plt Count 147 L (182-369) K/mm3 MPV 11.8 (9.4-12.3) fl Neutrophils % (Manual) 78 H (40-60) % Band Neutrophils % 0 (0-10) % Lymphocytes % (Manual) 19 L (20-40) % Atypical Lymphs % 0 % Monocytes % (Manual) 2 (2-10) % Eosinophils % (Manual) 1 (0.7-5.8) % Basophils % (Manual) 0 L (0.1-1.2) Platelet Estimate Adequate Anisocytosis 1+ slight Macrocytosis 1+ slight RBC Morph Comment Not Reportable Sodium 137 (136-145) mEq/L Potassium 4.0 (3.5-5.1) mEq/L Chloride 101 (98-107) mEq/L Carbon Dioxide 24 (21-32) mEq/L Anion Gap 16.0 H (5-15) BUN 6 L (7-18) mg/dL Creatinine 0.6 (0.55-1.02) mg/dL Est Cr Clr Drug Dosing 115.47 mL/min Estimated GFR (MDRD) > 60 (>60) mL/min BUN/Creatinine Ratio 10.0 L (14-18) Glucose 83 (74-106) mg/dL Calcium 9.6 (8.5-10.1) mg/dL Magnesium 1.7 L (1.8-2.4) mg/dl Total Bilirubin 1.9 H (0.2-1.0) mg/dL AST 236 H (15-37) U/L ALT 97 H (14-59) U/L Alkaline Phosphatase 187 H (46-116) U/L Total Protein 8.0 (6.4-8.2) g/dl Albumin 3.3 L (3.4-5.0) g/dl Globulin 4.7 gm/dL Albumin/Globulin Ratio 0.7 L (1-2) Lipase 60182 H (73-393) U/L Ethyl Alcohol 0.00 (0.00) gm% Meds: Medications Generic Name Dose Route Start Last Admin Trade Name Freq PRN Reason Stop Dose Admin Sodium Chloride 1,000 mls @ 250 mls/hr 08/04/18 17:30 Normal Saline IV ASDIRECTED ALISA Discontinued Medications Generic Name Dose Route Start Last Admin Trade Name Irene PRN Reason Stop Dose Admin Hydromorphone HCl 1 mg 08/04/18 14:43 08/04/18 15:05 Dilaudid IVPUSH 08/04/18 14:44 1 mg ONETIME ONE Administration Hydromorphone HCl 1 mg 08/04/18 17:45 Dilaudid IVPUSH 08/04/18 17:46 ONETIME ONE Sodium Chloride 1,000 mls @ 150 mls/hr 08/04/18 14:30 08/04/18 15:04 Normal Saline IV 150 mls/hr ASDIRECTED ALISA Administration Ondansetron HCl 4 mg 08/04/18 14:44 08/04/18 15:03 Zofran IVPUSH 08/04/18 14:45 4 mg ONETIME ONE Administration - Re-Assessments/Exams Free Text/Narrative Re-Assessment/Exam: 08/04/18 16:53 The patient is much more comfortable, following IV fluid, IV Dilaudid, and IV Zofran. Her lipase has returned substantially elevated at 17,837, although she does not have an elevated WBC count or fever to suggest an associated infection. Her electrolytes are normal, although her magnesium is slightly depressed at 1.7. Her total bilirubin is elevated at 1.9. Her AST/ALT are elevated at 236/97, and her alkaline phosphatase is mildly elevated at 187. Based on her lab results and painful process consistent with pancreatitis, the patient meets criterion for the diagnosis of acute pancreatitis, and does not require a CT scan of her abdomen and pelvis to make the diagnosis, although an argument could be made that a CT is warranted to make sure that there is no suggestion of an infection or phlegmon. The cause of her pancreatitis is unclear. Yes, the patient has been drinking, but it does not sound like she drank much recently. Her elevated transaminases may say otherwise. Is also possible that the patient has a retained common bile duct stone, sphincter of Oddi dysfunction, or even an anatomic abnormality with her pancreas. I recommended admission to the hospital for IV fluid, pain control, antiemetics, and time to allow her pancreas to cool off. The patient is willing to be admitted. 08/04/18 16:[address] Hall. Dr. Hall is familiar with this patient and is unwilling to admit her to the hospital. She states that the patient has had 2 full workups, finding nothing, and that the patient is very manipulative, demanding narcotics, and that if she does not get what she wants, that she simply leaves AMA. Dr. Hall also related that the patient may be a methamphetamine addict (as a point of fact, the patient denied to me that she has ever used methamphetamine. Additionally, I reviewed all of the patient's urine drug screens - she has had 3 at this facility - and while she has been positive for marijuana, which the patient admits to smoking, she has never been positive for methamphetamine). 08/04/18 17:19 Case discussed with Tammy at [facility] at 17:00. Case then discussed with Dr. Esquivel, Hospitalist at [facility], at 17:03. She was concerned about the abrupt elevation of the patient's lipase and wanted to discuss the case with Gastroenterology, to see if a CT scan of the abdomen and pelvis was indicated. Dr. Wood, Rail Track Maintainer at [facility], was brought onto the line at 17:10. He recommended that the patient have an outpatient workup that includes a MRI and MRCP, but no other media treatment, other than IV fluid, pain medication, antiemetics, etc. Dr. Esquivel accepted the patient for transfer to their facility. She recommended that we increase the IV fluid rate to 250 ml/hr. Departure - Departure Time of Disposition: 17:25 Disposition: DC/Tfer to [facility] 02 Condition: Fair Clinical Impression: Acute pancreatitis - Discharge Information *PRESCRIPTION DRUG MONITORING PROGRAM REVIEWED*: Not Applicable *COPY OF PRESCRIPTION DRUG MONITORING REPORT IN PATIENT ZENON: Not Applicable Referrals: Leslie Gutiérrez PA-C [Primary Care Provider] - Estefanía Goldsmith MD [Ordering Only Provider] - - My Orders Last 24 Hours: My Active Orders 08/04/18 17:30 Sodium Chloride 0.9% [Normal Saline] 1,000 ml IV ASDIRECTED - Assessment/Plan Last 24 Hours: My Active Orders 08/04/18 17:30 Sodium Chloride 0.9% [Normal Saline] 1,000 ml IV ASDIRECTED
[2018-08-04] MEDS ORDERED: Ondansetron 4 MG/2 ML SDV IVPUSH ONE (14:44)
[2018-08-04 17:54] VITALS: BP 131/68
== END 2018-08-04 18:25 ==
LOC: JD.ED 12:57
DX: K85.90 Acute pancreatitis without necrosis or infection, unspecified (principal); F17.210 Nicotine dependence, cigarettes, uncomplicated; Z88.8 Allergy status to other drugs, medicaments and biological substances; Z88.1 Allergy status to other antibiotic agents
CPT/HCPCS: 36415; 80053; 83690; 83735; 85007; 85027; 96361; 96374; 96375; 96376; 99285; G0480; J1170; J2405; J7040

== ENCOUNTER 2018-10-03 14:56 | Emergency (ER) | payer MEDICAID, OTHER ==
[2018-10-03 15:10] VITALS: BP 163/106
--- NOTE | 2018-10-03 15:22 | EDM.PDOC ---
ED HPI GENERAL MEDICAL PROBLEM - General Chief Complaint: Abdominal Pain Stated Complaint: PAIN -PANCREASE AND OVARY Time Seen by Provider: 10/03/18 15:21 Source of Information: Reports: Patient, Old Records, RN, RN Notes Reviewed History Limitations: Reports: No Limitations - History of Present Illness INITIAL COMMENTS - FREE TEXT/NARRATIVE: Kaycee Grimes presents to our ED today with abdominal pain, nausea, and vomiting. She is a long-standing history of multiple episodes of pancreatitis and she reports this feels like when her pancreas has been inflamed in the past. She is well-known to this service. She reports she has been drinking water and power 8 however she quickly vomits it up. She's been eating soup and unable to keep that down as well. She reports symptoms started approximately 1 week ago and have been getting worse. She states it started as a dull pain and has now gone to sharp and occasionally achy in her epigastric and left upper quadrant radiating to her back. She reports the pain is 10 out of 10. She was supposed to see GI in [place] however she reports she had rescheduled that appointment has not met with him since her last hospitalization. She reports she also feels hot, chills, dizzy, nauseated. She reports she has not had any alcohol for at least a week since these symptoms began. She's also had diarrhea although she reports is chronic for her as she has had her gallbladder out. She reports taking deep breaths and moving makes the pain worse. She denies any blood with her vomit or melenic or bloody stools. She does report she had sex 2 days ago and reports left lower quadrant pain as well. She reports this is in with the same partner. She reports she has been bleeding for the past 2 days and thought she was on her period. She reports this was somewhat late and she is unsure if she is still having her period or not. She reports she has a history of lupus, endometriosis, and fibromyalgia. She does see Leslie Baltazar PA-C here at the clinic at [facility] although her last visit was with Rafiq Russo PA-C. She reports he did a hepatitis panel on her at that visit and that was negative. Per ED notes she was seen in our ED on with similar symptoms.. Ethyl alcohol at that time was negative. Her AST was 236. Her ALT was 97. Alkaline phosphatase was 187. [place] lipase was [address]. There was no leukocytosis noted. She was then transferred to [facility]. Left Upper Abdomen Pain Score (Numeric/FACES): 10 - Related Data Allergies Allergy/AdvReac Type Severity Reaction Status Date / Time adhesive tape Allergy Itching Verified 08/04/18 13:10 ibuprofen Allergy Hives Verified 08/04/18 13:10 azithromycin [From Zithromax] AdvReac Nausea Verified 08/04/18 13:10 Home Meds: Home Meds Ondansetron [Zofran ODT] 4 mg PO Q6H PRN #20 tab.dis 08/03/18 [Rx] oxyCODONE HCl [Roxicodone] 5 mg PO Q4HR PRN #18 tablet 10/03/18 [Rx] Past Medical History Cardiovascular History: Reports: None Respiratory History: Reports: None Gastrointestinal History: Reports: Pancreatitis Other Gastrointestinal History: 5 years ago Genitourinary History: Reports: None [employer]STRUCTION [employer]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[employer]OR/[employer]PENTER History: Reports: 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, 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 Musculoskeletal History: Reports: Fibromyalgia Neurological History: Reports: None Psychiatric History: Reports: Addiction, Anxiety, Other (See Below) Endocrine/Metabolic History: Reports: Obesity/BMI 30+ Immunologic History: Reports: SLE Oncologic (Cancer) History: Reports: None Dermatologic History: Reports: None - Infectious Disease History Infectious Disease History: Reports: Chicken Pox - Past Surgical History HEENT Surgical History: Reports: Adenoidectomy GI Surgical History: Reports: Cholecystectomy Female Surgical History: Reports: Section, Other (See Below) Social & Family History - Family History Family Medical History: Noncontributory - Tobacco Use Smoking Status *Q: Current Every Day Smoker Years of Tobacco use: 8 Packs/Tins Daily: 0.5 - Caffeine Use Caffeine Use: Reports: None - Recreational Drug Use Recreational Drug Use: No Drug Use in Last 12 Months: No - Living Situation & Occupation Living situation: Reports: (), with Family Occupation: Unemployed ED ROS GENERAL - Review of Systems Review Of Systems: See Below Constitutional: Reports: Fever, Chills, Weakness, Fatigue, Decreased Appetite. Denies: Malaise HEENT: Reports: No Symptoms. Denies: Throat Pain Respiratory: Reports: No Symptoms. Denies: Shortness of Breath, Wheezing, Pleuritic Chest Pain, Cough, Sputum Cardiovascular: Reports: No Symptoms. Denies: Chest Pain, Edema, Lightheadedness GI/Abdominal: Reports: Abdominal Pain (LUQ >>> LLQ), Diarrhea (chronic), Decreased Appetite, Nausea, Vomiting. Denies: Constipation, Distension : Reports: No Symptoms. Denies: Discharge, Pain Musculoskeletal: Reports: No Symptoms Skin: Reports: No Symptoms Neurological: Reports: No Symptoms ED EXAM, GI/ABD - Physical Exam Exam: See Below Exam Limited By: No Limitations General Appearance: Alert, Anxious, Mild Distress Eyes: Bilateral: Normal Appearance, EOMI Ears: Normal External Exam Nose: Normal Inspection Throat/Mouth: Normal Lips, Normal Teeth, Normal Gums, Normal Oropharynx, Normal Voice, No Airway Compromise, Other (Dry mucous membranes) Head: Atraumatic, Normocephalic Neck: Normal Inspection, Supple, Non-Tender, Full Range of Motion Respiratory/Chest: No Respiratory Distress, Lungs Clear, Normal Breath Sounds, No Accessory Muscle Use, Chest Non-Tender Cardiovascular: Normal Peripheral Pulses, No Edema, No Gallop, No JVD, No Murmur , No Rub, Tachycardia GI/Abdominal Exam: Normal Bowel Sounds, Soft, No Distention, No Abnormal Bruit, Guarding, Tender (LLQ>>>>LLQ) (Female) Exam: Deferred Rectal (Female) Exam: Deferred Back Exam: Normal Inspection, Full Range of Motion Extremities: Normal Inspection, Normal Range of Motion, Non-Tender, Normal Capillary Refill, No Pedal Edema Skin Exam: Warm, Dry, Intact, Normal Color, No Rash Course - Vital Signs Last Recorded V/S: Last Vital Signs Temp 98.2 F 10/03/18 15:05 Pulse 124 H 10/03/18 15:05 Resp 20 10/03/18 15:05 BP 163/106 H 10/03/18 15:05 Pulse Ox 100 10/03/18 15:05 Orthostatic Blood Pressure [ 145/96 Standing] Orthostatic Blood Pressure [ 151/120 Sitting] Orthostatic Blood Pressure [ 144/107 Supine] - Orders/Labs/Meds Orders: Active Orders 24 hr Category Date Time Status Peripheral IV Care [RC] . DIRECTED Care 10/03/18 15:42 Active BILIRUBIN DIRECT [CHEM] Stat Lab 10/03/18 15:50 Received DRUG SCREEN, URINE [URCHEM] Stat Lab 10/03/18 15:43 Ordered GAMMA GLUTAMYL TRANSFERASE,GGT [CHEM] Stat Lab 10/03/18 15:50 Received UA W/MICROSCOPIC [URIN] Stat Lab 10/03/18 15:46 Ordered Ondansetron [Zofran] Med 10/03/18 15:45 Active 4 mg IVPUSH Q4H PRN Sodium Chloride 0.9% [Normal Saline] 1,000 ml Med 10/03/18 15:45 Active IV ASDIRECTED Sodium Chloride 0.9% [Saline Flush] Med 10/03/18 15:42 Active 10 ml FLUSH ASDIRECTED PRN Peripheral IV Insertion Adult [OM.PC] Routine Oth 10/03/18 15:42 Ordered Medication Orders Sodium Chloride (Normal Saline) 1,000 mls @ 150 mls/hr IV ASDIRECTED ALISA Last Admin: 10/03/18 15:56 Dose: 150 mls/hr Ondansetron HCl (Zofran) 4 mg IVPUSH Q4H PRN PRN Reason: Nausea/Vomiting Last Admin: 10/03/18 15:57 Dose: 4 mg Sodium Chloride (Saline Flush) 10 ml FLUSH ASDIRECTED PRN PRN Reason: Keep Vein Open Last Admin: 10/03/18 17:17 Dose: 10 ml Admin: 10/03/18 15:58 Dose: 10 ml Labs: Laboratory Tests 10/03/18 10/03/18 10/03/18 Range/Units 15:50 15:50 15:50 WBC 6.75 (3.98-10.04) K/mm3 RBC 3.96 L (3.98-5.22) M/mm3 Hgb 14.7 (11.2-15.7) gm/L Hct 42.6 (34.1-44.9) % MCV 107.6 H (79.4-94.8) fl MCH 37.1 H (25.6-32.2) pg MCHC 34.5 (32.2-35.5) g/dl RDW Std Deviation 55.9 H (36.4-46.3) fL Plt Count 84 L (182-369) K/mm3 MPV 10.8 (9.4-12.3) fl Neut % (Auto) 83.2 H (34.0-71.1) % Lymph % (Auto) 9.8 L (19.3-51.7) % Grainger % (Auto) 6.8 (4.7-12.5) % Eos % (Auto) 0 L (0.7-5.8) Baso % (Auto) 0.1 (0.1-1.2) % Neut # (Auto) 5.61 (1.56-6.13) K/mm3 Lymph # (Auto) 0.66 L (1.18-3.74) K/mm3 Grainger # (Auto) 0.46 H (0.24-0.36) K/mm3 Eos # (Auto) 0.00 L (0.04-0.36) K/mm3 Baso # (Auto) 0.01 (0.01-0.08) K/mm3 Manual Slide Review Abnormal smear Sodium 140 (136-145) mEq/L Potassium 3.6 (3.5-5.1) mEq/L Chloride 100 (98-107) mEq/L Carbon Dioxide 26 (21-32) mEq/L Anion Gap 17.6 H (5-15) BUN 6 L (7-18) mg/dL Creatinine 0.6 (0.55-1.02) mg/dL Est Cr Clr Drug Dosing 114.95 mL/min Estimated GFR (MDRD) > 60 (>60) mL/min BUN/Creatinine Ratio 10.0 L (14-18) Glucose 94 (74-106) mg/dL Serum Osmolality 292 (280-300) mosm/kg Lactic Acid (0.4-2.0) mmol/L Calcium 9.6 (8.5-10.1) mg/dL Total Bilirubin 2.6 H (0.2-1.0) mg/dL AST 310 H (15-37) U/L ALT 82 H (14-59) U/L Alkaline Phosphatase 239 H (46-116) U/L C-Reactive Protein 0.2 (<1.0) mg/dL Total Protein 8.5 H (6.4-8.2) g/dl Albumin 3.7 (3.4-5.0) g/dl Globulin 4.8 gm/dL Albumin/Globulin Ratio 0.8 L (1-2) Lipase 5620 H (73-393) U/L HCG, Qual Negative (NEGATIVE) Ethyl Alcohol 0.00 (0.00) gm% Ketones (0.0-0.3) mM 10/03/18 10/03/18 Range/Units 15:50 15:50 WBC (3.98-10.04) K/mm3 RBC (3.98-5.22) M/mm3 Hgb (11.2-15.7) gm/L Hct (34.1-44.9) % MCV (79.4-94.8) fl MCH (25.6-32.2) pg MCHC (32.2-35.5) g/dl RDW Std Deviation (36.4-46.3) fL Plt Count (182-369) K/mm3 MPV (9.4-12.3) fl Neut % (Auto) (34.0-71.1) % Lymph % (Auto) (19.3-51.7) % Grainger % (Auto) (4.7-12.5) % Eos % (Auto) (0.7-5.8) Baso % (Auto) (0.1-1.2) % Neut # (Auto) (1.56-6.13) K/mm3 Lymph # (Auto) (1.18-3.74) K/mm3 Grainger # (Auto) (0.24-0.36) K/mm3 Eos # (Auto) (0.04-0.36) K/mm3 Baso # (Auto) (0.01-0.08) K/mm3 Manual Slide Review Sodium (136-145) mEq/L Potassium (3.5-5.1) mEq/L Chloride (98-107) mEq/L Carbon Dioxide (21-32) mEq/L Anion Gap (5-15) BUN (7-18) mg/dL Creatinine (0.55-1.02) mg/dL Est Cr Clr Drug Dosing mL/min Estimated GFR (MDRD) (>60) mL/min BUN/Creatinine Ratio (14-18) Glucose (74-106) mg/dL Serum Osmolality (280-300) mosm/kg Lactic Acid 1.7 (0.4-2.0) mmol/L Calcium (8.5-10.1) mg/dL Total Bilirubin (0.2-1.0) mg/dL AST (15-37) U/L ALT (14-59) U/L Alkaline Phosphatase (46-116) U/L C-Reactive Protein (<1.0) mg/dL Total Protein (6.4-8.2) g/dl Albumin (3.4-5.0) g/dl Globulin gm/dL Albumin/Globulin Ratio (1-2) Lipase (73-393) U/L HCG, Qual (NEGATIVE) Ethyl Alcohol (0.00) gm% Ketones 0.42 (0.0-0.3) mM Meds: Medications Generic Name Dose Route Start Last Admin Trade Name Freq PRN Reason Stop Dose Admin Sodium Chloride 1,000 mls @ 150 mls/hr 10/03/18 15:45 10/03/18 15:56 Normal Saline IV 150 mls/hr ASDIRECTED ALISA Administration Ondansetron HCl 4 mg 10/03/18 15:45 10/03/18 15:57 Zofran IVPUSH 4 mg Q4H PRN Administration Nausea/Vomiting Sodium Chloride 10 ml 10/03/18 15:42 10/03/18 17:17 Saline Flush FLUSH 10 ml ASDIRECTED PRN Administration Keep Vein Open Discontinued Medications Generic Name Dose Route Start Last Admin Trade Name Freq PRN Reason Stop Dose Admin Hydromorphone HCl 0.5 mg 10/03/18 16:49 10/03/18 17:01 Dilaudid IVPUSH 10/03/18 16:50 0.5 mg ONETIME ONE Administration Hydromorphone HCl 0.5 mg 10/03/18 18:20 10/03/18 18:30 Dilaudid IVPUSH 10/03/18 18:21 0.5 mg ONETIME STA Administration Iopamidol 100 ml 10/03/18 17:07 10/03/18 17:17 Isovue-370 (76%) IV 10/03/18 17:08 100 ml ONETIME ONE Administration - Re-Assessments/Exams Free Text/Narrative Re-Assessment/Exam: Majority of the labs are back majority of her labs are back. There is no leukocytosis. Hemoglobin is stable at 14.7. She is macrocytic. Platelets are low at 84,000. Neutrophils are elevated at 83.2. Sodium is 140. Potassium 3.6. Anion gap is elevated at 17.6. BUN 6. Creatinine 0.6. EGFR is good and 60. Glucose is 94. Lactic acid 1.7. Bilirubin is elevated at 2.6. AST is elevated at 310. ALT 82. Alkaline phosphatase 239. CRP is 0.2. Protein is high at 8.5. Lipase is quite high at 5620. HCG is negative. Ethyl Alcohol 0.00. We'll go ahead and order CT scan of the abdomen and pelvis with IV contrast. We'll also order a direct bilirubin and GGT. Urine drug screen and serum osmolality are still pending along with UA. She has been having significant pain so will order 0.5 mg IV push Dilaudid. 10/03/18 16:58 CT scan of the abdomen and pelvis obtained and interpreted by Dr. Magallon as "1. Enlarged liver showing severe fatty infiltration. 2. Inflammatory change around the pancreas questionable more prominent from prior exam. Uncertain if findings represent reappearance of previous pancreatitis or represents change from persisting chronic pancreatitis. 3. Small amount of fluid within the pelvis is seen which is significantly has improved in amount from previous exam. 4. Other incidental findings as noted above." Unfortunately lab analyzers down and we are unable to obtain a GGT. 10/03/18 18:[address] Hall, on-call hospitalist. She is very familiar with this patient and reports she has unwilling to admit Sandra. She recommends transfer to [place] if hospitalization is needed or she can be near her GI specialist. Discussed findings and CT scan results with Sandra. She is adamant about not going to [place] as she reports she has no support system down there and has been there in the past. She reports she could handle this at home if she can get pain medications and something for nausea. Discussed this with Dr. Harper, ER attending and he recommends patient drink only Gatorade and water for the next 4 days. She may have protein and carbs but no butter soda crackers etc. He recommends discharging on Zofran for nausea and Adrian for pain. Discussed this with Sandra she is willing to accept this plan. 10/03/18 18:34 Departure - Departure Time of Disposition: 19:09 (Discharge after finishing IV fluids) Disposition: Home, Self-Care 01 Condition: Fair Clinical Impression: Pancreatitis Qualifiers: Chronicity: acute Pancreatitis type: unspecified pancreatitis type Acute pancreatitis complication: unspecified Qualified Code(s): K85.90 - Acute pancreatitis without necrosis or infection, unspecified - Discharge Information *PRESCRIPTION DRUG MONITORING PROGRAM REVIEWED*: No *COPY OF PRESCRIPTION DRUG MONITORING REPORT IN PATIENT ZENON: No Prescriptions: oxyCODONE HCl [Roxicodone] 5 mg PO Q4HR PRN #18 tablet PRN Reason: Pain Instructions: Acute Pancreatitis, Eixq-by-Dget, Abdominal Pain, Adult, Easy-to- Read Referrals: Leslie Gutiérrez PA-C [Primary Care Provider] - Forms: ED Department Discharge Additional Instructions: He was seen today in the ED for abdominal pain which she reportedly feels like pancreatitis as you dealt with this several times in the past. It appears he may have chronic pancreatitis. Lipase and CT scan results confirmed to have pancreatitis. We discussed the possibility of hospital admission and he reported he did not want to go to [place]. Our hospitalist here recommended transfer. We discussed plan of care and he reports would like to go home and not be transferred. Risks such as development of abscess and worsening of symptoms were discussed and you still indicated you want to go home. He should avoid alcohol at all costs. He may drink Gatorade and occasionally water for the next 4 days minimum. As symptoms improve you can eat some protein and carbs such as pasta or buns. Avoid soda crackers or butter. You were provided a printout on what to eat and what to avoid. You reported you have lots of zofran at home and do not need a prescription for this. Continue to take that as prescribed for nausea. You were sent a prescription for oxycodone. Avoid tylenol due to your liver. Do no drive or operate heavy machinery while on Oxycodone. Follow-up with your primary care provider, Katlin Gutiérrez PA-C early next week. Appointments can be scheduled by calling . Be sure you attend your GI appointment in [place]. - My Orders Last 24 Hours: My Active Orders 10/03/18 15:42 Peripheral IV Care [RC] . DIRECTED Sodium Chloride 0.9% [Saline Flush] 10 ml FLUSH ASDIRECTED PRN Peripheral IV Insertion Adult [OM.PC] Routine 10/03/18 15:43 DRUG SCREEN, URINE [URCHEM] Stat 10/03/18 15:45 Ondansetron [Zofran] 4 mg IVPUSH Q4H PRN Sodium Chloride 0.9% [Normal Saline] 1,000 ml IV ASDIRECTED 10/03/18 15:46 UA W/MICROSCOPIC [URIN] Stat 10/03/18 15:50 BILIRUBIN DIRECT [CHEM] Stat GAMMA GLUTAMYL TRANSFERASE,GGT [CHEM] Stat - Assessment/Plan Last 24 Hours: My Active Orders 10/03/18 15:42 Peripheral IV Care [RC] . DIRECTED Sodium Chloride 0.9% [Saline Flush] 10 ml FLUSH ASDIRECTED PRN Peripheral IV Insertion Adult [OM.PC] Routine 10/03/18 15:43 DRUG SCREEN, URINE [URCHEM] Stat 10/03/18 15:45 Ondansetron [Zofran] 4 mg IVPUSH Q4H PRN Sodium Chloride 0.9% [Normal Saline] 1,000 ml IV ASDIRECTED 10/03/18 15:46 UA W/MICROSCOPIC [URIN] Stat 10/03/18 15:50 BILIRUBIN DIRECT [CHEM] Stat GAMMA GLUTAMYL TRANSFERASE,GGT [CHEM] Stat
[2018-10-03] MEDS ORDERED: Sodium Chloride 0.9% 1,000 ML IV SCH (15:45)
[2018-10-03] MEDS ORDERED: Ondansetron 4 MG/2 ML SDV IVPUSH PRN (15:45)
[2018-10-03] MEDS: Sodium Chloride 0.9% 10 ML Syringe FLUSH PRN ×2 (15:58→17:17)
[2018-10-03] MEDS ORDERED: HYDROmorphone 1 MG/ML Syringe IVPUSH ONE (16:49)
[2018-10-03] MEDS ORDERED: Iopamidol 755 Mg/ML 200 ML Bottle IV ONE (17:07)
--- NOTE | 2018-10-03 17:48 | CT ---
CT abdomen and pelvis Technique: Multiple axial sections were obtained from above the dome of the diaphragm inferiorly through the pubic symphysis. Intravenous contrast was given. No oral contrast has been given. Delayed images were obtained through the bladder. Comparison: Prior CT abdomen and pelvis exam of 05/29/18. Findings: Visualized lung bases show nothing acute. Liver is enlarged and shows severe fatty infiltration with small area of focal fatty sparing seen next to the ligamentum teres fissure. Surgical clips are seen from prior cholecystectomy. Spleen appears within normal limits. Adrenal glands show no nodule. Kidneys show symmetric contrast enhancement without hydronephrosis or mass. Inflammatory change is seen around the pancreas. This inflammatory change appears questionably more prominent from previous exam. No fluid collections of abscess or phlegmon are seen. Aorta shows no aneurysm. Small scattered lymph nodes seen within the retroperitoneum which remain stable. No pelvic mass or adenopathy is seen. Small amount of fluid is seen within the pelvis. Delayed images shows contrast within the bladder. Appendix is not visualized with certainty. Bone window settings were reviewed which appear within normal limits for the patient's age. Impression: 1. Enlarged liver showing severe fatty infiltration. 2. Inflammatory change around the pancreas questionably more prominent from prior exam. Uncertain if findings represent reappearance of previous pancreatitis or represents change from persisting chronic pancreatitis. 3. Small amount of fluid within the pelvis is seen which is significantly has improved in amount from previous exam. 4. Other incidental findings as noted above. Diagnostic code #3
[2018-10-03] MEDS ORDERED: HYDROmorphone 0.5 MG/0.5 ML Syringe IVPUSH STA (18:20)
== END 2018-10-03 19:57 | disposition home or self-care (01) ==
LOC: JD.ED 14:56
DX: K85.90 Acute pancreatitis without necrosis or infection, unspecified (principal); F17.210 Nicotine dependence, cigarettes, uncomplicated; Z88.8 Allergy status to other drugs, medicaments and biological substances; Z88.1 Allergy status to other antibiotic agents
CPT/HCPCS: 36415; 74177; 80053; 82009; 82248; 82977; 83605; 83690; 83930; 84703; 85025; 86140; 96361; 96374; 96375; 96376; 99284; G0480; J1170; J2405; J7040; Q9967

== ENCOUNTER 2019-02-24 12:13 | Emergency (ER) | payer MEDICAID, OTHER ==
[2019-02-24 12:45] VITALS: BP 148/110; PULSE 115
[2019-02-24] MEDS ORDERED: Sodium Chloride 0.9% 10 ML Syringe FLUSH PRN (13:10)
[2019-02-24] MEDS ORDERED: HYDROmorphone 1 MG/ML Syringe IVPUSH ONE ×2 (13:12→14:33)
[2019-02-24] MEDS ORDERED: Sodium Chloride 0.9% 1,000 ML IV ONE (13:12)
[2019-02-24] MEDS ORDERED: Ondansetron 4 MG/2 ML SDV IVPUSH ONE (13:12)
--- NOTE | 2019-02-24 15:23 | EDM.PDOC ---
ED HPI GENERAL MEDICAL PROBLEM - General Chief Complaint: Abdominal Pain Stated Complaint: LUMP ON LOWER LEFT SIDE OF STOMACH,PAINFUL Time Seen by Provider: 02/24/19 13:00 Source of Information: Reports: Patient History Limitations: Reports: No Limitations - History of Present Illness INITIAL COMMENTS - FREE TEXT/NARRATIVE: 29-year-old female presents for 2 different problems. Patient presented for a lump to her left side of her abdomen. First appreciated this on Friday or Friday. She states that this morning she appreciated that it was bruised and painful. This is primarily prompted her visit to the ER today. Patient is also complaining that her "pancreas is acting up". She has been seen numerous times for pancreatitis. She rep associated chills, nausea, 2 episodes of vomiting, chest pain and back pain. She states that she has chronic diarrhea but has not had any blood in her stool. She is had chronic diarrhea since having her gallbladder out in 2017. Patient has a history of alcohol abuse. She states that she did use alcohol level for 5 days ago. Primary care provide is Katlin Gutiérrez or Mary Tracey. 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 Middle Abdomen Pain Score (Numeric/FACES): 7 - Related Data Allergies Allergy/AdvReac Type Severity Reaction Status Date / Time adhesive tape Allergy Itching Verified 02/24/19 12:39 ibuprofen Allergy Hives Verified 02/24/19 12:39 azithromycin [From Zithromax] AdvReac Nausea Verified 02/24/19 12:39 Home Meds: Home Meds Ondansetron [Zofran ODT] 4 mg PO Q6H PRN #20 tab.dis 08/03/18 [Rx] oxyCODONE 5 mg PO Q4HR PRN #20 tab 02/24/19 [Rx] Past Medical History Cardiovascular History: Reports: Hypertension Respiratory History: Reports: Bronchitis, Recurrent Gastrointestinal History: Reports: Pancreatitis Other Gastrointestinal History: 5 years ago Genitourinary History: Reports: None 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: 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, Other SOFTWARE DESIGNER History: C section Musculoskeletal History: Reports: Fibromyalgia Neurological History: Reports: None Psychiatric History: Reports: Anxiety Endocrine/Metabolic History: Reports: Obesity/BMI 30+ Hematologic History: Reports: Anemia Immunologic History: Reports: SLE Oncologic (Cancer) History: Reports: None Other Oncologic History: abnormal pap 3 years ago, never went back for follow up Colposcopy was done at that time Dermatologic History: Reports: None - Infectious Disease History Infectious Disease History: Reports: Chicken Pox - Past Surgical History Head Surgeries/Procedures: Reports: None HEENT Surgical History: Reports: Adenoidectomy, Oral Surgery GI Surgical History: Reports: Cholecystectomy Female Surgical History: Reports: Section, Other (See Below) Other Female Surgeries/Procedures: exploratory lap Social & Family History - Family History Family Medical History: Noncontributory Oncologic: Reports: Uterine - Tobacco Use Smoking Status *Q: Current Every Day Smoker Years of Tobacco use: 7 Packs/Tins Daily: 1 - Caffeine Use Caffeine Use: Reports: None - Recreational Drug Use Recreational Drug Use: No - Living Situation & Occupation Living situation: Reports: (), with Family Occupation: Unemployed ED ROS GENERAL - Review of Systems Review Of Systems: See Below Constitutional: Reports: Chills. Denies: Fever Cardiovascular: Reports: Chest Pain GI/Abdominal: Reports: Abdominal Pain, Diarrhea (chronic), Nausea, Vomiting (x2) . Denies: Bloody Stool Musculoskeletal: Reports: Back Pain Skin: Reports: Lumps (left abdomen) ED EXAM, GI/ABD - Physical Exam Exam: See Below Exam Limited By: No Limitations General Appearance: Alert, WD/WN, Mild Distress, Thin Throat/Mouth: Normal Inspection, Normal Lips, Normal Voice, No Airway Compromise Respiratory/Chest: No Respiratory Distress, Lungs Clear, Normal Breath Sounds Cardiovascular: Normal Peripheral Pulses, No Murmur, Tachycardia GI/Abdominal Exam: Normal Bowel Sounds, Soft, Tender (upper abdomen and LLQ) Neurological: Alert, Oriented, Normal Cognition Psychiatric: Normal Affect, Normal Mood Skin Exam: Warm, Dry, Normal Color, Other (approximately quater sized lump to the LLQ) Course - Vital Signs Last Recorded V/S: Last Vital Signs Temp 97.8 F 02/24/19 12:42 Pulse 115 H 02/24/19 12:42 Resp 18 02/24/19 12:42 BP 148/110 H 02/24/19 12:42 Pulse Ox 100 02/24/19 12:42 - Orders/Labs/Meds Labs: Laboratory Tests 02/24/19 02/24/19 02/24/19 Range/Units 13:00 13:00 14:26 WBC 4.09 (3.98-10.04) K/mm3 RBC 3.82 L (3.98-5.22) M/mm3 Hgb 14.1 (11.2-15.7) gm/L Hct 40.3 (34.1-44.9) % MCV 105.5 H (79.4-94.8) fl MCH 36.9 H (25.6-32.2) pg MCHC 35.0 (32.2-35.5) g/dl RDW Std Deviation 55.6 H (36.4-46.3) fL Plt Count 108 L (182-369) K/mm3 MPV 11.2 (9.4-12.3) fl Neutrophils % (Manual) 55 (40-60) % Band Neutrophils % 0 (0-10) % Lymphocytes % (Manual) 33 (20-40) % Atypical Lymphs % 0 % Monocytes % (Manual) 8 (2-10) % Eosinophils % (Manual) 3 (0.7-5.8) % Basophils % (Manual) 1 (0.1-1.2) Platelet Estimate Decreased Macrocytosis 3+ marked RBC Morph Comment Not Reportable Sodium 136 (136-145) mEq/L Potassium 3.4 L (3.5-5.1) mEq/L Chloride 97 L (98-107) mEq/L Carbon Dioxide 27 (21-32) mEq/L Anion Gap 15.4 H (5-15) BUN 5 L (7-18) mg/dL Creatinine 0.4 L (0.55-1.02) mg/dL Est Cr Clr Drug Dosing 166.43 mL/min Estimated GFR (MDRD) > 60 (>60) mL/min BUN/Creatinine Ratio 12.5 L (14-18) Glucose 77 (74-106) mg/dL Calcium 9.4 (8.5-10.1) mg/dL Total Bilirubin 2.1 H (0.2-1.0) mg/dL GGT 5015 H (5-55) U/L AST 184 H (15-37) U/L ALT 67 H (14-59) U/L Alkaline Phosphatase 210 H (46-116) U/L C-Reactive Protein 1.3 H* (<1.0) mg/dL Total Protein 8.0 (6.4-8.2) g/dl Albumin 3.7 (3.4-5.0) g/dl Globulin 4.3 gm/dL Albumin/Globulin Ratio 0.9 L (1-2) Amylase 253 H (25-115) U/L Lipase 5240 H (73-393) U/L Urine Color Dark yellow (Yellow) Urine Appearance Clear (Clear) Urine pH 8.5 H (5.0-8.0) Ur Specific [place] 1.020 (1.005-1.030) Urine Protein 1+ H (Negative) Urine Glucose (UA) Negative (Negative) Urine Ketones 3+ H (Negative) Urine Occult Blood Negative (Negative) Urine Nitrite Negative (Negative) Urine Bilirubin 2+ H (Negative) Urine Urobilinogen 1.0 (0.2-1.0) Ur Leukocyte Esterase Negative (Negative) Urine RBC 0-5 (0-5) /hpf Urine WBC 0-5 (0-5) /hpf Ur Epithelial Cells 0-5 (0-5) /hpf Urine Bacteria Few (FEW) /hpf Urine Mucus Few (FEW) /hpf Ethyl Alcohol 0.00 (0.00) gm% Meds: Medications Discontinued Medications Generic Name Dose Route Start Last Admin Trade Name Freq PRN Reason Stop Dose Admin Hydromorphone HCl 1 mg 02/24/19 13:12 02/24/19 13:24 Dilaudid IVPUSH 02/24/19 13:13 1 mg ONETIME ONE Administration Hydromorphone HCl 1 mg 02/24/19 14:33 02/24/19 15:23 Dilaudid IVPUSH 02/24/19 14:34 1 mg ONETIME ONE Administration Sodium Chloride 1,000 mls @ 999 mls/hr 02/24/19 13:12 02/24/19 13:19 Normal Saline IV 02/24/19 14:12 999 mls/hr ONETIME ONE Administration Ondansetron HCl 4 mg 02/24/19 13:12 02/24/19 13:20 Zofran IVPUSH 02/24/19 13:13 4 mg ONETIME ONE Administration Sodium Chloride 10 ml 02/24/19 13:10 02/24/19 13:23 Saline Flush FLUSH 10 ml ASDIRECTED PRN Administration Keep Vein Open - Re-Assessments/Exams Free Text/Narrative Re-Assessment/Exam: 02/24/19 15:18 Discussed patient's disposition. Her labs are consistent with chronic pancreatitis. No needed for CT today. Offered admission. Patient has been sent to [place] one two different occasions due to this. She does not want to go to [place] today. She would like to try going home with only clear fluids and pain medications. Recommend close follow-up in the clinic for labs to be rechecked. Regarding the lump, I feel this can be ultrasound as an outpatient. Discharge instructions as documented. Departure - Departure Time of Disposition: 15:20 Disposition: Home, Self-Care 01 Condition: Fair Clinical Impression: Pancreatitis - Discharge Information *PRESCRIPTION DRUG MONITORING PROGRAM REVIEWED*: Yes *COPY OF PRESCRIPTION DRUG MONITORING REPORT IN PATIENT ZENON: No Prescriptions: oxyCODONE 5 mg PO Q4HR PRN #20 tab PRN Reason: Pain Instructions: Acute Pancreatitis, [id number] Referrals: PCP,Unknown [Primary Care Provider] - Forms: ED Department Discharge Additional Instructions: You were given medication in the ER that can affect your ability to drive and operate machinery. Do not drive or operate machinery within 10 hours of taking prescription narcotic pain medication. no foods. May have clear liquids. Zofran you have at home as needed for nausea Oxycodone 1 tab every 4-6 hours. Oxycodone is habit-forming, take as few these as needed control your pain. Do not drive or operate machinery within 10 hours of taking oxycodone. You may take [id number] ibuprofen for less severe pain. Follow-up with your primary care provider this or Friday of this week for a recheck of your symptoms. Please return to the ER for symptoms change or worsen.
== END 2019-02-24 15:40 | disposition home or self-care (01) ==
LOC: JD.ED 12:13
DX: K85.90 Acute pancreatitis without necrosis or infection, unspecified (principal); I10 Essential (primary) hypertension; E66.9 Obesity, unspecified; F17.210 Nicotine dependence, cigarettes, uncomplicated; Z90.49 Acquired absence of other specified parts of digestive tract; Z98.890 Other specified postprocedural states; Z88.6 Allergy status to analgesic agent; Z91.09 Other allergy status, other than to drugs and biological substances; Z88.1 Allergy status to other antibiotic agents
CPT/HCPCS: 36415; 80053; 80320; 81001; 82150; 82977; 83690; 85007; 85027; 86140; 96361; 96374; 96375; 96376; 99284; J1170; J2405; J7040; G0480

== ENCOUNTER 2019-06-11 21:16 | Inpatient (IN) | payer SELFPAY ==
[2019-06-11] MEDS ORDERED: Sodium Chloride 0.9% 10 ML Syringe FLUSH PRN (21:22)
[2019-06-11] MEDS ORDERED: HYDROmorphone 1 MG/ML Syringe IVPUSH ONE (21:29)
[2019-06-11] MEDS ORDERED: Sodium Chloride 0.9% 1,000 ML IV ONE (21:29)
[2019-06-11] MEDS ORDERED: Ondansetron 4 MG/2 ML SDV IVPUSH ONE (21:29)
--- NOTE | 2019-06-11 21:31 | EDM.PDOC ---
ED HPI GENERAL MEDICAL PROBLEM - General Chief Complaint: Abdominal Pain Stated Complaint: ABDOMINAL PAIN Time Seen by Provider: 06/11/19 22:51 Source of Information: Reports: Patient History Limitations: Reports: No Limitations - History of Present Illness INITIAL COMMENTS - FREE TEXT/NARRATIVE: The patient is an unfortunate 29-year-old female presents emergency Department today with complaint of epigastric abdominal pain. Patient reports that symptoms started approximately 4 hours prior to arrival. She was in her normal state of health at that time she started having severe epigastric abdominal pain which is caused her to have normal symptoms of vomiting patient reports that we will keep any food or fluid down since. Patient reports is a crampy-type abdominal pain nothing makes the pain better nothing makes the pain worse this pain is similar to previous episodes of pancreatitis Abdominal Pain Score (Numeric/FACES): 10 - Related Data Allergies Allergy/AdvReac Type Severity Reaction Status Date / Time adhesive tape Allergy Itching Verified 06/11/19 21:29 ibuprofen Allergy Hives Verified 06/11/19 21:29 azithromycin [From Zithromax] AdvReac Nausea Verified 06/11/19 21:29 Home Meds: Home Meds Ondansetron [Zofran ODT] 4 mg PO Q6H PRN #20 tab.dis 08/03/18 [Rx] Ibuprofen [Ibu] 600 mg PO Q6HR PRN 05/04/19 [History] Melatonin 10 mg PO BEDTIME PRN 05/04/19 [History] Cholecalciferol (Vitamin D3) [Vitamin D3] 5,000 unit PO DAILY #20 tablet [Rx] Folic Acid 1 mg PO BEDTIME #20 tablet 05/06/19 [Rx] Magnesium Oxide 400 mg PO DAILY #5 tab 05/06/19 [Rx] Nicotine [Habitrol] 14 mg TOP DAILY #15 patch 05/06/19 [Rx] Pantoprazole Sodium [Protonix] 40 mg PO DAILY #30 tablet.dr 05/06/19 [Rx] Potassium Chloride 20 meq PO DAILY #4 tablet.er 05/06/19 [Rx] traMADol [Ultram] 50 mg PO Q6H PRN #12 tab 05/06/19 [Rx] Past Medical History Cardiovascular History: Reports: Hypertension Respiratory History: Reports: Bronchitis, Recurrent Gastrointestinal History: Reports: Pancreatitis Other Gastrointestinal History: 5 years ago Genitourinary History: Reports: None 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: 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, 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 ENGAGEMENT LEAD History: C 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 Musculoskeletal History: Reports: Fibromyalgia Neurological History: Reports: None Psychiatric History: Reports: Anxiety Endocrine/Metabolic History: Reports: None Hematologic History: Reports: Anemia Immunologic History: Reports: SLE Oncologic (Cancer) History: Reports: None Other Oncologic History: abnormal pap 3 years ago, never went back for follow up Colposcopy was done at that time Dermatologic History: Reports: None Other Dermatologic History: moles removed on face, gets hives - Infectious Disease History Infectious Disease History: Reports: Chicken Pox - Past Surgical History Head Surgeries/Procedures: Reports: None HEENT Surgical History: Reports: Adenoidectomy, Oral Surgery GI Surgical History: Reports: Cholecystectomy Female Surgical History: Reports: Section, Other (See Below) Other Female Surgeries/Procedures: exploratory lap Social & Family History - Family History Family Medical History: Noncontributory Oncologic: Reports: Uterine - Caffeine Use Caffeine Use: Reports: None - Living Situation & Occupation Living situation: Reports: (), with Family Occupation: Unemployed ED ROS GENERAL - Review of Systems Review Of Systems: See Below Constitutional: Denies: Fever, Chills GI/Abdominal: Reports: Abdominal Pain, Nausea, Vomiting. Denies: Diarrhea, Hematemesis, Hematochezia ED EXAM, GI/ABD - Physical Exam Exam: See Below Exam Limited By: No Limitations General Appearance: Alert, WD/WN, Moderate Distress Head: Atraumatic, Normocephalic Neck: Normal Inspection, Supple, Non-Tender, Full Range of Motion Respiratory/Chest: No Respiratory Distress, Lungs Clear, Normal Breath Sounds, No Accessory Muscle Use, Chest Non-Tender Cardiovascular: Normal Peripheral Pulses, Regular Rate, Rhythm, No Edema, No Gallop, No JVD, No Murmur, No Rub GI/Abdominal Exam: Normal Bowel Sounds, Soft, Tender (Moderate epigastric) Back Exam: Normal Inspection, Full Range of Motion, NT Extremities: Normal Inspection, Normal Range of Motion, Non-Tender, Normal Capillary Refill, No Pedal Edema Neurological: Alert Skin Exam: Warm, Dry, No Rash Course - Vital Signs Last Recorded V/S: Last Vital Signs Temp 97.9 F 06/11/19 21:26 Pulse 138 H 06/11/19 21:26 Resp 18 06/11/19 21:26 BP 152/124 H 06/11/19 21:26 Pulse Ox 98 06/11/19 21:26 - Orders/Labs/Meds Orders: Active Orders 24 hr Category Date Time Status COMPREHENSIVE METABOLIC PN,CMP [CHEM] Stat Lab 06/11/19 21:50 Results DRUG SCREEN, URINE [URCHEM] Stat Lab 06/11/19 21:22 Ordered ETHANOL BLOOD MEDICAL [CHEM] Stat Lab 06/11/19 21:50 Results LIPASE [CHEM] Stat Lab 06/11/19 21:50 Results UA RFX THERON AND CULT IF INDIC [URIN] Stat Lab 06/11/19 21:22 Ordered Sodium Chloride 0.9% [Saline Flush] Med 06/11/19 21:22 Active 10 ml FLUSH ASDIRECTED PRN Saline Lock Insert [OM.PC] Stat Oth 06/11/19 21:22 Ordered Medication Orders Sodium Chloride (Saline Flush) 10 ml FLUSH ASDIRECTED PRN PRN Reason: Keep Vein Open Last Admin: 06/11/19 22:02 Dose: 10 ml Labs: Laboratory Tests 06/11/19 06/11/19 Range/Units 21:50 21:50 WBC 6.39 (3.98-10.04) K/mm3 RBC 3.85 L (3.98-5.22) M/mm3 Hgb 14.0 D (11.2-15.7) gm/dl Hct 39.7 (34.1-44.9) % MCV 103.1 H D (79.4-94.8) fl MCH 36.4 H (25.6-32.2) pg MCHC 35.3 (32.2-35.5) g/dl RDW Std Deviation 54.4 H (36.4-46.3) fL Plt Count 275 D (182-369) K/mm3 MPV 10.3 (9.4-12.3) fl Neut % (Auto) 69.2 (34.0-71.1) % Lymph % (Auto) 20.7 (19.3-51.7) % [place] % (Auto) 9.1 (4.7-12.5) % Eos % (Auto) 0.3 L (0.7-5.8) Baso % (Auto) 0.5 (0.1-1.2) % Neut # (Auto) 4.43 (1.56-6.13) K/mm3 Lymph # (Auto) 1.32 (1.18-3.74) K/mm3 [place] # (Auto) 0.58 H (0.24-0.36) K/mm3 Eos # (Auto) 0.02 L (0.04-0.36) K/mm3 Baso # (Auto) 0.03 (0.01-0.08) K/mm3 Sodium 138 (136-145) mEq/L Potassium 2.9 L D (3.5-5.1) mEq/L Chloride 96 L (98-107) mEq/L Carbon Dioxide 26 (21-32) mEq/L Anion Gap 18.9 H (5-15) BUN 9 (7-18) mg/dL Creatinine 0.7 (0.55-1.02) mg/dL Est Cr Clr Drug Dosing 90.86 mL/min Estimated GFR (MDRD) > 60 (>60) mL/min BUN/Creatinine Ratio 12.9 L (14-18) Glucose 85 (74-106) mg/dL Calcium 9.1 (8.5-10.1) mg/dL Total Bilirubin 1.1 H (0.2-1.0) mg/dL AST 208 H (15-37) U/L ALT 70 H (14-59) U/L Alkaline Phosphatase 207 H (46-116) U/L Total Protein 8.3 H (6.4-8.2) g/dl Albumin 3.8 (3.4-5.0) g/dl Globulin 4.5 gm/dL Albumin/Globulin Ratio 0.8 L (1-2) Ethyl Alcohol 0.02 (0.00) gm% Meds: Medications Generic Name Dose Route Start Last Admin Trade Name Freq PRN Reason Stop Dose Admin Sodium Chloride 10 ml 06/11/19 21:22 06/11/19 22:02 Saline Flush FLUSH 10 ml ASDIRECTED PRN Administration Keep Vein Open Discontinued Medications Generic Name Dose Route Start Last Admin Trade Name Freq PRN Reason Stop Dose Admin Diphenhydramine HCl 25 mg 06/11/19 22:31 06/11/19 22:38 Benadryl IVPUSH 06/11/19 22:32 25 mg ONETIME ONE Administration Hydromorphone HCl 1 mg 06/11/19 21:29 06/11/19 21:59 Dilaudid IVPUSH 06/11/19 21:30 1 mg ONETIME ONE Administration Sodium Chloride 1,000 mls @ 1,000 mls/hr 06/11/19 21:29 06/11/19 22:01 Normal Saline IV 06/11/19 22:28 1,000 mls/hr ONETIME ONE Administration Ondansetron HCl 4 mg 06/11/19 21:29 06/11/19 21:56 Zofran IVPUSH 06/11/19 21:30 4 mg ONETIME ONE Administration Pantoprazole Sodium 40 mg 06/11/19 22:14 06/11/19 22:26 Protonix Iv IVPUSH 06/11/19 22:15 40 mg ONETIME ONE Administration Potassium Chloride 40 meq 06/11/19 22:32 06/11/19 22:38 Klor-Con M20 PO 06/11/19 22:33 40 meq ONETIME ONE Administration - Re-Assessments/Exams Free Text/Narrative Re-Assessment/Exam: 06/11/19 22:[address] Cabrales who accepts patient and observation for acute pancreatitis Departure - Departure Time of Disposition: 22:51 Disposition: Refer to Observation Clinical Impression: Acute pancreatitis Qualifiers: Pancreatitis type: other Acute pancreatitis complication: no infection or necrosis Qualified Code(s): K85.80 - Other acute pancreatitis without necrosis or infection - Discharge Information Referrals: Leslie Gutiérrez PA-C [Primary Care Provider] - Forms: ED Department Discharge Sepsis Event Note - Evaluation Sepsis Screening Result: No Definite Risk - Focused Exam Vital Signs: Vital Signs Temp Pulse Resp BP Pulse Ox 06/11/19 21:26 97.9 F 138 H 18 152/124 H 98 Date Exam was Performed: 06/11/19 Time Exam was Performed: 22:51 - My Orders Last 24 Hours: My Active Orders 06/11/19 21:22 DRUG SCREEN, URINE [URCHEM] Stat UA RFX THERON AND CULT IF INDIC [URIN] Stat Sodium Chloride 0.9% [Saline Flush] 10 ml FLUSH ASDIRECTED PRN Saline Lock Insert [OM.PC] Stat 06/11/19 21:50 COMPREHENSIVE METABOLIC PN,CMP [CHEM] Stat ETHANOL BLOOD MEDICAL [CHEM] Stat LIPASE [CHEM] Stat - Assessment/Plan Last 24 Hours: My Active Orders 06/11/19 21:22 DRUG SCREEN, URINE [URCHEM] Stat UA RFX THERON AND CULT IF INDIC [URIN] Stat Sodium Chloride 0.9% [Saline Flush] 10 ml FLUSH ASDIRECTED PRN Saline Lock Insert [OM.PC] Stat 06/11/19 21:50 COMPREHENSIVE METABOLIC PN,CMP [CHEM] Stat ETHANOL BLOOD MEDICAL [CHEM] Stat LIPASE [CHEM] Stat
[2019-06-11] MEDS ORDERED: Pantoprazole 40 MG Vial IVPUSH ONE (22:14)
[2019-06-11] MEDS ORDERED: diphenhydrAMINE 50 MG/ML SDV IVPUSH ONE (22:31)
[2019-06-11] MEDS ORDERED: Potassium Chloride 20 MEQ Tab.ER PO ONE (22:32)
[2019-06-12] MEDS: Morphine 4 MG/ML Syringe IVPUSH PRN ×2 (00:29→04:29)
[2019-06-12] MEDS: Lactated Ringers 1,000 ML IV SCH ×5 (00:31→16:51)
[2019-06-12] MEDS: Ondansetron 4 MG/2 ML SDV IVPUSH PRN ×2 (04:29→12:49)
--- NOTE | 2019-06-12 08:04 | PCM.HP.2 ---
H&P History of Present Illness - General Date of Service: 06/12/19 Admit Problem/Dx: Admission Diagnosis/Problem Admission Diagnosis/Problem Pancreatitis - History of Present Illness Initial Comments - Free Text/Narative: This is a 29-year-old female presents emergency Department today with complaint of epigastric abdominal pain. Patient reports that symptoms started approximately 4 hours prior to arrival. She was in her normal state of health at that time she started having severe epigastric abdominal pain which is caused her to have normal symptoms of vomiting patient reports that we will keep any food or fluid down since. Patient reports is a crampy-type abdominal pain nothing makes the pain better nothing makes the pain worse this pain is similar to previous episodes of pancreatitis Abdominal Pain Score (Numeric/FACES): 10 - Related Data Allergies/Adverse Reactions: Allergies Allergy/AdvReac Type Severity Reaction Status Date / Time adhesive tape Allergy Itching Verified 06/11/19 21:29 ibuprofen Allergy Hives Verified 06/11/19 21:29 azithromycin [From Zithromax] AdvReac Nausea Verified 06/11/19 21:29 Home Medications: Home Meds Ondansetron [Zofran ODT] 4 mg PO Q6H PRN #20 tab.dis 08/03/18 [Rx] Melatonin 10 mg PO BEDTIME PRN 05/04/19 [History] Folic Acid 1 mg PO BEDTIME #20 tablet 05/06/19 [Rx] Pantoprazole Sodium [Protonix] 40 mg PO DAILY #30 tablet. 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, Other OB/BYN History: C section Musculoskeletal History: Reports: Fibromyalgia Neurological History: Reports: None Psychiatric History: Reports: Anxiety Endocrine/Metabolic History: Reports: None Hematologic History: Reports: Anemia Immunologic History: Reports: SLE Oncologic (Cancer) History: Reports: None Other Oncologic History: abnormal pap, never went back for follow up Colposcopy was done at that time Dermatologic History: Reports: None Other Dermatologic History: moles removed on face, gets hives - Infectious Disease History Infectious Disease History: Reports: Chicken Pox - Past Surgical History Head Surgeries/Procedures: Reports: None HEENT Surgical History: Reports: Adenoidectomy, Oral Surgery Cardiovascular Surgical History: Reports: None Respiratory Surgical History: Reports: None GI Surgical History: Reports: Cholecystectomy Female Surgical History: Reports: Section, Other (See Below) Other Female Surgeries/Procedures: exploratory lap Musculoskeletal Surgical History: Reports: None Oncologic Surgical History: Reports: None Social & Family History - Family History Family Medical History: Noncontributory Oncologic: Reports: Uterine - Tobacco Use Smoking Status *Q: Current Every Day Smoker Years of Tobacco use: 7 Packs/Tins Daily: 0.5 Used Tobacco, but Quit: No Second Hand Smoke Exposure: Yes - Caffeine Use Caffeine Use: Reports: None - Alcohol Use Days Per Week of Alcohol Use: 0 - Recreational Drug Use Recreational Drug Use: No - Living Situation & Occupation Living situation: Reports: (), with Family Occupation: Unemployed H&P Review of Systems - Review of Systems: Review Of Systems: See Below General: Reports: Malaise. Denies: Fever, Chills, Weakness, Fatigue, Night Sweats, Diaphoresis HEENT: Denies: Contact Lenses, Dysphasia, Ear Pain, Eye Pain, Glasses, Headaches , Hearing Changes, Vertigo Pulmonary: Denies: Shortness of Breath, Wheezing, Pleuritic Chest Pain, Cough, Sputum Cardiovascular: Denies: Chest Pain, Palpitations, Dyspnea on Exertion, Orthopnea , PND, Edema, Lightheadedness, Syncope, Claudication Gastrointestinal: Reports: Abdominal Pain, Anorexia, Decreased Appetite, Nausea , Vomiting. Denies: Black Stool, Bloody Stool, Constipation, Diarrhea, Difficulty Swallowing, Distension, Flatus, Hematemesis, Hematochezia, Melena, Stool Incontinence Genitourinary: Denies: Dysuria, Frequency, Burning, Pain, Urgency, Incontinence Musculoskeletal: Denies: Joint Pain, Joint Swelling, Muscle Pain, Muscle Stiffness Skin: Reports: Cyanosis, Pallor. Denies: Jaundice, Mottled Psychiatric: Denies: Confusion, Depression, Mood Lability, Anxiety Neurological: Denies: Confusion, Dizziness, Headache, Numbness Exam - Exam Exam: See Below - Vital Signs Vital Signs: Last Vital Signs Temp 98.2 F 12/21/19 04:40 Pulse 67 06/12/19 04:40 Resp 12 06/12/19 04:40 BP 132/94 H 06/12/19 04:40 Pulse Ox 95 06/12/19 04:40 Weight: 50.757 kg - Exam General: Alert, Oriented, Cooperative HEENT: Conjunctiva Clear, EACs Clear, EOMI, Mucosa Moist & [place] Neck: Supple, Trachea Midline, +2 Carotid Pulse wo Bruit, Full Range of Motion. No: Lymphadenopathy Lungs: Clear to Auscultation, Normal Respiratory Effort. No: Crackles, Rales, Rhonchi, Wheezing Cardiovascular: Regular Rate, Regular Rhythm. No: Systolic Murmur, Diastolic Murmur, Rubs, Gallop/S3, Gallop/S4 GI/Abdominal Exam: Normal Bowel Sounds, Rigid, Tender Neuro Extensive - Mental Status: Alert - Patient Data Lab Results Last 24 hrs: Laboratory Results - last 24 hr 06/11/19 06/11/19 06/11/19 Range/Units 21:50 21:50 23:00 WBC 6.39 (3.98-10.04) K/mm3 RBC 3.85 L (3.98-5.22) M/mm3 Hgb 14.0 D (11.2-15.7) gm/dl Hct 39.7 (34.1-44.9) % MCV 103.1 H D (79.4-94.8) fl MCH 36.4 H (25.6-32.2) pg MCHC 35.3 (32.2-35.5) g/dl RDW Std Deviation 54.4 H (36.4-46.3) fL Plt Count 275 D (182-369) K/mm3 MPV 10.3 (9.4-12.3) fl Neut % (Auto) 69.2 (34.0-71.1) % Lymph % (Auto) 20.7 (19.3-51.7) % [place] % (Auto) 9.1 (4.7-12.5) % Eos % (Auto) 0.3 L (0.7-5.8) Baso % (Auto) 0.5 (0.1-1.2) % Neut # (Auto) 4.43 (1.56-6.13) K/mm3 Lymph # (Auto) 1.32 (1.18-3.74) K/mm3 [place] # (Auto) 0.58 H (0.24-0.36) K/mm3 Eos # (Auto) 0.02 L (0.04-0.36) K/mm3 Baso # (Auto) 0.03 (0.01-0.08) K/mm3 Sodium 138 (136-145) mEq/L Potassium 2.9 L D (3.5-5.1) mEq/L Chloride 96 L (98-107) mEq/L Carbon Dioxide 26 (21-32) mEq/L Anion Gap 18.9 H (5-15) BUN 9 (7-18) mg/dL Creatinine 0.7 (0.55-1.02) mg/dL Est Cr Clr Drug Dosing 90.86 mL/min Estimated GFR (MDRD) > 60 (>60) mL/min BUN/Creatinine Ratio 12.9 L (14-18) Glucose 85 (74-106) mg/dL Calcium 9.1 (8.5-10.1) mg/dL Total Bilirubin 1.1 H (0.2-1.0) mg/dL AST 208 H (15-37) U/L ALT 70 H (14-59) U/L Alkaline Phosphatase 207 H (46-116) U/L Total Protein 8.3 H (6.4-8.2) g/dl Albumin 3.8 (3.4-5.0) g/dl Globulin 4.5 gm/dL Albumin/Globulin Ratio 0.8 L (1-2) Lipase 4616 H (73-393) U/L Urine Color Yellow (Yellow) Urine Appearance Clear (Clear) Urine pH 6.5 (5.0-8.0) Ur Specific [place] > or = 1.030 (1.005-1.030) Urine Protein 1+ H (Negative) Urine Glucose (UA) Negative (Negative) Urine Ketones 1+ H (Negative) Urine Occult Blood 1+ H (Negative) Urine Nitrite Negative (Negative) Urine Bilirubin 1+ H (Negative) Urine Urobilinogen 1.0 (0.2-1.0) Ur Leukocyte Esterase Negative (Negative) Urine RBC 0-5 (0-5) /hpf Urine WBC 0-5 (0-5) /hpf Ur Squamous Epith Cells 5-10 H (0-5) /hpf Urine Bacteria Few (FEW) /hpf Urine Mucus Moderate H (FEW) /hpf Urine Opiates Screen (AZTKYJ=839) Ur Buprenorphine Scrn (CUTOFF=10) Ur Oxycodone Screen (IQV9SB=609) Urine Methadone Screen (SHCWMB=508) Ur Propoxyphene Screen (JDEPWF=552) Ur Barbiturates Screen (ZECTRC=919) Ur Tricyclics Screen (URLQFQ=785) Ur Phencyclidine Scrn (CUTOFF=25) Ur Amphetamine Screen (BEPSEB=793) U Methamphetamines Scrn (DUQKIZ=499) U Benzodiazepines Scrn (SYISYQ=655) U Cocaine Metab Screen (GLTBTF=433) U Marijuana (THC) Screen (CUTOFF=50) Ethyl Alcohol 0.02 (0.00) gm% 06/11/19 Range/Units 23:00 WBC (3.98-10.04) K/mm3 RBC (3.98-5.22) M/mm3 Hgb (11.2-15.7) gm/dl Hct (34.1-44.9) % MCV (79.4-94.8) fl MCH (25.6-32.2) pg MCHC (32.2-35.5) g/dl RDW Std Deviation (36.4-46.3) fL Plt Count (182-369) K/mm3 MPV (9.4-12.3) fl Neut % (Auto) (34.0-71.1) % Lymph % (Auto) (19.3-51.7) % [place] % (Auto) (4.7-12.5) % Eos % (Auto) (0.7-5.8) Baso % (Auto) (0.1-1.2) % Neut # (Auto) (1.56-6.13) K/mm3 Lymph # (Auto) (1.18-3.74) K/mm3 [place] # (Auto) (0.24-0.36) K/mm3 Eos # (Auto) (0.04-0.36) K/mm3 Baso # (Auto) (0.01-0.08) K/mm3 Sodium (136-145) mEq/L Potassium (3.5-5.1) mEq/L Chloride (98-107) mEq/L Carbon Dioxide (21-32) mEq/L Anion Gap (5-15) BUN (7-18) mg/dL Creatinine (0.55-1.02) mg/dL Est Cr Clr Drug Dosing mL/min Estimated GFR (MDRD) (>60) mL/min BUN/Creatinine Ratio (14-18) Glucose (74-106) mg/dL Calcium (8.5-10.1) mg/dL Total Bilirubin (0.2-1.0) mg/dL AST (15-37) U/L ALT (14-59) U/L Alkaline Phosphatase (46-116) U/L Total Protein (6.4-8.2) g/dl Albumin (3.4-5.0) g/dl Globulin gm/dL Albumin/Globulin Ratio (1-2) Lipase (73-393) U/L Urine Color (Yellow) Urine Appearance (Clear) Urine pH (5.0-8.0) Ur Specific [place] (1.005-1.030) Urine Protein (Negative) Urine Glucose (UA) (Negative) Urine Ketones (Negative) Urine Occult Blood (Negative) Urine Nitrite (Negative) Urine Bilirubin (Negative) Urine Urobilinogen (0.2-1.0) Ur Leukocyte Esterase (Negative) Urine RBC (0-5) /hpf Urine WBC (0-5) /hpf Ur Squamous Epith Cells (0-5) /hpf Urine Bacteria (FEW) /hpf Urine Mucus (FEW) /hpf Urine Opiates Screen Negative (OUQQUH=570) Ur Buprenorphine Scrn Negative (CUTOFF=10) Ur Oxycodone Screen Negative (BJH9ND=215) Urine Methadone Screen Negative (GNLSSJ=165) Ur Propoxyphene Screen Negative (WBZICC=195) Ur Barbiturates Screen Negative (TVJLEK=328) Ur Tricyclics Screen Negative (PGRKRH=544) Ur Phencyclidine Scrn Negative (CUTOFF=25) Ur Amphetamine Screen Negative (XNMIWL=993) U Methamphetamines Scrn Negative (KEKVES=951) U Benzodiazepines Scrn Negative (XRMASV=242) U Cocaine Metab Screen Negative (AXVXJL=559) U Marijuana (THC) Screen Negative (CUTOFF=50) Ethyl Alcohol (0.00) gm% Result Diagrams: 06/12/19 09:11 06/12/19 09:11 Sepsis Event Note - Evaluation Sepsis Screening Result: No Definite Risk - Focused Exam Vital Signs: Vital Signs Temp Temp Pulse Pulse Resp BP BP 06/12/19 04:40 98.2 F 67 12 132/94 H 06/11/19 23:54 97.5 F 108 H 14 136/95 H 06/11/19 21:26 97.9 F 138 H 18 152/124 H Pulse Ox 06/12/19 04:40 95 06/11/19 23:54 100 06/11/19 21:26 98 Date Exam was Performed: 06/12/19 Time Exam was Performed: 16:07 - Problem List (1) Acute pancreatitis SNOMED Code(s): 778167729 ICD Code: K85.90 - ACUTE PANCREATITIS WITHOUT NECROSIS OR INFECTION, UNSP Status: Acute Current Visit: Yes Qualifiers: Pancreatitis type: other Acute pancreatitis complication: no infection or necrosis Qualified Code(s): K85.80 - Other acute pancreatitis without necrosis or infection (2) Hypochloremia SNOMED Code(s): 14957425 ICD Code: E87.8 - OTH DISORDERS OF ELECTROLYTE AND FLUID BALANCE, NEC Status: Acute Current Visit: Yes (3) Abnormal liver function tests SNOMED Code(s): 426821539 ICD Code: R94.5 - ABNORMAL RESULTS OF LIVER FUNCTION STUDIES Status: Acute Current Visit: Yes (4) Abdominal pain SNOMED Code(s): 46615512 Status: Acute Priority: High Current Visit: No (5) Anhedonia SNOMED Code(s): 08318024 ICD Code: R45.84 - ANHEDONIA Status: Acute Current Visit: No (6) Anxiety SNOMED Code(s): 73490085 ICD Code: F41.9 - ANXIETY DISORDER, UNSPECIFIED Status: Acute Current Visit: No (7) Hypokalemia SNOMED Code(s): 13372007 ICD Code: E87.6 - HYPOKALEMIA Status: Acute Priority: High Current Visit: No (8) Macrocytosis SNOMED Code(s): 576185394 ICD Code: D75.89 - OTHER SPECIFIED DISEASES OF BLOOD AND BLOOD-FORMING ORGANS Status: Acute Current Visit: No (9) 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 SNOMED Code(s): 061896968 ICD Code: N80.9 - ENDOMETRIOSIS, UNSPECIFIED Status: Chronic Priority: Medium Current Visit: No Problem List Initiated/Reviewed/Updated: Yes Assessment/Plan Comment:: Acute pancreatitis Abdominal pain Abnormal liver function tests 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 Hypokalemia Hypochloremia Recurrent visits to the ED for abdominal pain Lipase >4000 Has been sent to GI specialist multiple times but has missed appointments Etiology is unclear PLAN - NPO - IVF replacement with LR - Monitor electrolytes - Morphine and Toradol for pain PROPHYLAXIS DVT- not indicated GI- home pantoprazole CODE STATUS: FULL CODE DISPOSITION: Patient will be admitted under observation to medical floor for IV fluid replacement and pain control.
[2019-06-12] MEDS: Ketorolac 15 MG/ML SDV IVPUSH PRN ×2 (10:54→20:01)
[2019-06-12] MEDS ORDERED: Magnesium Sulfate/Water 4 GM in Premix Bag 1 BAG IV ONE (11:40)
[2019-06-12] MEDS: Potassium Chloride 10 MEQ in Premix Bag 1 BAG IV SCH ×2 (12:14→14:16)
[2019-06-12] MEDS ORDERED: Melatonin 3 MG Tab PO PRN (16:02)
[2019-06-12] MEDS: diphenhydrAMINE 12.5 MG/5 ML Liquid 5 ML UD Cup PO PRN (20:02)
[2019-06-12] MEDS ORDERED: Folic Acid 1 MG Tab PO SCH (21:00)
[2019-06-13] MEDS: Pantoprazole 40 MG Tab.CR PO SCH (05:19)
--- NOTE | 2019-06-13 12:13 | PCM.PN ---
- General Info Date of Service: 06/13/19 Admission Dx/Problem (Free Text): Admission Diagnosis/Problem Admission Diagnosis/Problem Pancreatitis Subjective Update: Patient continues to have pain requiring morphine. Patient had a poor night sleep secondary to pain. She has not had a bowel movement. No nausea or vomiting. - Review of Systems General: Reports: No Symptoms HEENT: Reports: No Symptoms Pulmonary: Reports: No Symptoms Cardiovascular: Reports: No Symptoms Gastrointestinal: Reports: Abdominal Pain - Patient Data Vitals - Most Recent: Last Vital Signs Temp 98.2 F 06/13/19 08:31 Pulse 79 06/13/19 08:31 Resp 16 06/13/19 08:31 BP 128/88 06/13/19 08:31 Pulse Ox 97 06/13/19 08:31 Weight - Most Recent: 114 lb I&O - Last 24 Hours: Intake & Output 06/12/19 06/13/19 06/13/19 22:59 06:59 14:59 Intake Total 2050 400 Output Total 2200 2500 Balance -150 -2100 Lab Results Last 24 Hours: Laboratory Results - last 24 hr 06/13/19 06/13/19 Range/Units 04:51 04:51 WBC 5.58 (3.98-10.04) K/mm3 RBC 3.32 L (3.98-5.22) M/mm3 Hgb 12.0 (11.2-15.7) gm/dl Hct 35.7 (34.1-44.9) % MCV 107.5 H (79.4-94.8) fl MCH 36.1 H (25.6-32.2) pg MCHC 33.6 (32.2-35.5) g/dl RDW Std Deviation 55.6 H (36.4-46.3) fL Plt Count 179 L (182-369) K/mm3 MPV 11.2 (9.4-12.3) fl Neut % (Auto) 60.2 (34.0-71.1) % Lymph % (Auto) 30.3 (19.3-51.7) % [place] % (Auto) 5.7 (4.7-12.5) % Eos % (Auto) 3.2 (0.7-5.8) Baso % (Auto) 0.4 (0.1-1.2) % Neut # (Auto) 3.36 (1.56-6.13) K/mm3 Lymph # (Auto) 1.69 (1.18-3.74) K/mm3 [place] # (Auto) 0.32 (0.24-0.36) K/mm3 Eos # (Auto) 0.18 (0.04-0.36) K/mm3 Baso # (Auto) 0.02 (0.01-0.08) K/mm3 Manual Slide Review Abnormal smear Sodium 135 L (136-145) mEq/L Potassium 3.7 (3.5-5.1) mEq/L Chloride 101 (98-107) mEq/L Carbon Dioxide 25 (21-32) mEq/L Anion Gap 12.7 (5-15) BUN 4 L (7-18) mg/dL Creatinine 0.5 L (0.55-1.02) mg/dL Est Cr Clr Drug Dosing 133.03 mL/min Estimated GFR (MDRD) > 60 (>60) mL/min BUN/Creatinine Ratio 8.0 L (14-18) Glucose 64 L (74-106) mg/dL Calcium 8.6 (8.5-10.1) mg/dL Phosphorus 2.2 L (2.6-4.7) mg/dL Magnesium 2.1 (1.8-2.4) mg/dl Total Bilirubin 1.5 H (0.2-1.0) mg/dL AST 125 H (15-37) U/L ALT 41 (14-59) U/L Alkaline Phosphatase 153 H (46-116) U/L Total Protein 6.5 (6.4-8.2) g/dl Albumin 2.9 L (3.4-5.0) g/dl Globulin 3.6 gm/dL Albumin/Globulin Ratio 0.8 L (1-2) Med Orders - Current: Current Medications Diphenhydramine HCl (Benadryl) 12.5 mg PO Q4H PRN PRN Reason: Itching Last Admin: 06/12/19 20:02 Dose: 12.5 mg Ketorolac Tromethamine (Toradol) 15 mg IVPUSH Q6H PRN PRN Reason: Pain Last Admin: 06/12/19 20:01 Dose: 15 mg Melatonin (Melatonin) 9 mg PO BEDTIME PRN PRN Reason: Insomnia Morphine Sulfate (Morphine) 2 mg IVPUSH Q2H PRN PRN Reason: Pain (severe 7-10) Ondansetron HCl (Zofran) 4 mg IVPUSH Q4H PRN PRN Reason: Nausea/Vomiting Last Admin: 06/12/19 12:49 Dose: 4 mg Pantoprazole Sodium (Protonix) 40 mg PO ACBREAKFAST ALISA Last Admin: 06/13/19 05:19 Dose: 40 mg Sodium Chloride (Saline Flush) 10 ml FLUSH ASDIRECTED PRN PRN Reason: Keep Vein Open Last Admin: 06/11/19 22:02 Dose: 10 ml Discontinued Medications Diphenhydramine HCl (Benadryl) 25 mg IVPUSH ONETIME ONE Stop: 06/11/19 22:32 Last Admin: 06/11/19 22:38 Dose: 25 mg Folic Acid (Folic Acid) 1 mg PO BEDTIME ALISA Hydromorphone HCl (Dilaudid) 1 mg IVPUSH ONETIME ONE Stop: 06/11/19 21:30 Last Admin: 06/11/19 21:59 Dose: 1 mg Sodium Chloride (Normal Saline) 1,000 mls @ 1,000 mls/hr IV ONETIME ONE Stop: 06/11/19 22:28 Last Admin: 06/11/19 22:01 Dose: 1,000 mls/hr Lactated Ringer's (Ringers, Lactated) 1,000 mls @ 250 mls/hr IV ASDIRECTED ALISA Last Admin: 06/12/19 16:51 Dose: 250 mls/hr Magnesium Sulfate 4 gm/ Premix 100 mls @ 25 mls/hr IV ONETIME ONE Stop: 06/12/19 11:41 Last Admin: 06/12/19 12:12 Dose: 25 mls/hr Potassium Chloride 10 meq/ (Premix) 100 mls @ 100 mls/hr IV Q1H ALISA Stop: 06/12/19 13:44 Last Admin: 06/12/19 14:16 Dose: 100 mls/hr Morphine Sulfate (Morphine) 4 mg IVPUSH Q4H PRN PRN Reason: Pain Last Admin: 06/12/19 04:29 Dose: 4 mg Morphine Sulfate (Morphine) 4 mg IVPUSH Q4H PRN PRN Reason: Pain Last Admin: 06/13/19 10:29 Dose: 4 mg Ondansetron HCl (Zofran) 4 mg IVPUSH ONETIME ONE Stop: 06/11/19 21:30 Last Admin: 06/11/19 21:56 Dose: 4 mg Pantoprazole Sodium (Protonix Iv) 40 mg IVPUSH ONETIME ONE Stop: 06/11/19 22:15 Last Admin: 06/11/19 22:26 Dose: 40 mg Potassium Chloride (Klor-Con M20) 40 meq PO ONETIME ONE Stop: 06/11/19 22:33 Last Admin: 06/11/19 22:38 Dose: 40 meq - Exam General: Alert, Oriented HEENT: Pupils Equal, Pupils Reactive, EOMI, Mucous Membr. Moist/[place] Neck: Supple Lungs: Clear to Auscultation, Normal Respiratory Effort Cardiovascular: Regular Rate, Regular Rhythm GI/Abdominal Exam: Soft, Tender (Diffusely tender worse in the epigastrium), Abnormal Bowel Sounds (Diffusely decreased) Skin: Warm, Dry, Intact Neurological: No New Focal Deficit Psy/Mental Status: Alert, Normal Affect, Normal Mood Sepsis Event Note - Evaluation Sepsis Screening Result: No Definite Risk - Focused Exam Vital Signs: Vital Signs Temp Pulse Resp BP Pulse Ox 06/13/19 08:31 98.2 F 79 16 128/88 97 06/13/19 05:09 98.1 F 82 12 120/93 H 98 Date Exam was Performed: 06/13/19 Time Exam was Performed: 12:08 - Problem List Review Problem List Initiated/Reviewed/Updated: Yes - My Orders Last 24 Hours: My Active Orders 06/13/19 11:51 Patient Status [ADT] Routine 06/13/19 11:55 Morphine 2 mg IVPUSH Q2H PRN - Plan Plan:: Acute on chronic pancreatitis Abdominal pain Abnormal liver function tests 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 Hypokalemia -resolved Recurrent visits to the ED for abdominal pain Lipase >4000 Has been sent to GI specialist multiple times but has missed appointments due to inability to get to [place] Etiology is unclear PLAN - Clear liquid diet - Monitor electrolytes - Morphine and Toradol for pain -Transition to p.o. meds tomorrow. PROPHYLAXIS VTE score = 0 DVT prophylaxis is not indicated GI- home pantoprazole CODE STATUS: FULL CODE DISPOSITION: Patient will be changed to inpatient since she will be here over 2 nights.
[2019-06-13] MEDS: Morphine 2 MG/ML Syringe IVPUSH PRN ×2 (13:31→16:13)
[2019-06-13] MEDS: Ketorolac 15 MG/ML SDV IVPUSH PRN (17:08)
[2019-06-13] MEDS: diphenhydrAMINE 12.5 MG/5 ML Liquid 5 ML UD Cup PO PRN (17:15)
[2019-06-14] MEDS: Pantoprazole 40 MG Tab.CR PO SCH ×2 (04:49→06:11)
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
[2019-06-14 09:00] VITALS: BP 128/79; PULSE 62
[2019-06-14] MEDS ORDERED: Sodium Phosphate 15 mMole/5 ML SDV INJECT ONE (11:58)
[2019-06-14] MEDS ORDERED: oxyCODONE 5 MG Tab PO PRN (12:04)
[2019-06-14] MEDS ORDERED: Sodium Phosphate 30 MMOLE in Sodium Chloride 0.9% 250 ML IV ONE (12:30)
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
[2019-06-14] MEDS ORDERED: Phosphorus #1 250 MG Tab PO ONE (12:50)
== END 2019-06-14 13:40 | disposition home or self-care (01) | DRG 439 ==
LOC: JD.ED 21:16 → JD.MS 23:09 → INTOOBSV 06-13 06:42 → OBSVTOIN 06-13 06:42 → JD.MS 06-13 12:08
PROVIDERS: ADMIT Family Medicine; ATTEND Family Medicine
DX: K85.80 Other acute pancreatitis without necrosis or infection (principal); E87.1 Hypo-osmolality and hyponatremia; K86.1 Other chronic pancreatitis; N80.9 Endometriosis, unspecified; E83.39 Other disorders of phosphorus metabolism; R94.5 Abnormal results of liver function studies; E87.8 Other disorders of electrolyte and fluid balance, not elsewhere classified; F41.9 Anxiety disorder, unspecified; M79.7 Fibromyalgia; E78.5 Hyperlipidemia, unspecified; M32.9 Systemic lupus erythematosus, unspecified; E87.6 Hypokalemia; F10.10 Alcohol abuse, uncomplicated; I10 Essential (primary) hypertension; F17.200 Nicotine dependence, unspecified, uncomplicated; R45.84 Anhedonia; E83.42 Hypomagnesemia; Z91.410 Personal history of adult physical and sexual abuse; Z88.6 Allergy status to analgesic agent; Z91.09 Other allergy status, other than to drugs and biological substances; Z88.1 Allergy status to other antibiotic agents; Z79.899 Other long term (current) drug therapy; Z90.49 Acquired absence of other specified parts of digestive tract
CPT/HCPCS: 36415; 80048; 80053; 80306; 81001; 83690; 83735; 84100; 85025; 96361; 96374; 96375; 99285-25; A9270-GY; C9113; G0480; J1170; J1200; J1885; J2270; J2405; J3475; J3480; J7030; J7120

== ENCOUNTER 2019-07-02 16:15 | Emergency (ER) | payer SELFPAY ==
[2019-07-02 16:29] VITALS: BP 135/85; PULSE 150
[2019-07-02] MEDS ORDERED: Ondansetron 4 MG/2 ML SDV IVPUSH ONE (16:49)
[2019-07-02] MEDS ORDERED: Ketorolac 30 MG/ML SDV IVPUSH ONE (16:49)
[2019-07-02] MEDS ORDERED: HYDROmorphone 0.5 MG/0.5 ML Syringe IVPUSH ONE ×3 (16:49→20:09)
[2019-07-02] MEDS ORDERED: Sodium Chloride 0.9% 10 ML Syringe FLUSH PRN (16:49)
--- NOTE | 2019-07-02 16:57 | EDM.PDOC ---
ED HPI GENERAL MEDICAL PROBLEM - General Chief Complaint: Abdominal Pain Stated Complaint: PANCREATITIS AND OVARY PAIN Time Seen by Provider: 07/02/19 16:38 Source of Information: Reports: Patient History Limitations: Reports: No Limitations - History of Present Illness INITIAL COMMENTS - FREE TEXT/NARRATIVE: Patient is a 29-year-old female who presents with complaints of left upper and lower quadrant abdominal pain that started "one and a half days ago ". The patient does have a 8 year history of recurrent pancreatitis. She states that in addition to this she has been very constipated lately. Her last normal bowel movement she states was one week ago. She did make herself nothing by mouth other than water after she started having this pain. She states that today she did take some MiraLAX with a Lorena sun to try to treat her constipation, but other than that she is only drinking water. she was able to keep this down without vomiting, however, she has had intermittent vomiting over the last and a half. she did try to have a bowel movement today, however states she was only able to have 2 small pieces of hard stool. She states that she tried to hold out for as long as she could prior to coming to the ER but the pain became too severe. Patient does have an appointment with a GI specialist at [facility] in July. She states that up until this point nobody has been able to tell her why she gets this recurrent pancreatitis. She has seen a GI specialist in the past and had an endoscopy done but there were no definitive findings. She denies any chronic alcohol or drug abuse. She states that she did have 2 leftover oxycodone that she used for pain, however she is out of that. She did take some ibuprofen this morning even though she has a allergy to it. She developed some hives after this but those and the longer present. Denies diarrhea, fever, or chills. Upper Abdomen Pain Score (Numeric/FACES): 8 - Related Data Allergies Allergy/AdvReac Type Severity Reaction Status Date / Time adhesive tape Allergy Itching Verified 07/02/19 16:30 ibuprofen Allergy Hives Verified 07/02/19 16:30 azithromycin [From Zithromax] AdvReac Nausea Verified 07/02/19 16:30 Home Meds: Home Meds Ondansetron [Zofran ODT] 4 mg PO Q6H PRN #20 tab.dis 08/03/18 [Rx] Melatonin 10 mg PO BEDTIME PRN 05/04/19 [History] Pantoprazole Sodium [Protonix] 40 mg PO DAILY #30 tablet. 05/06/19 [Rx] oxyCODONE HCl/Acetaminophen [Percocet 5-325 mg Tablet] 1 - 2 each PO Q6H PRN # 20 tablet 07/02/19 [Rx] Past Medical History HEENT History: Reports: Other (See Below) Other HEENT History: Currently having difficulty hearing in right ear Cardiovascular History: Reports: Hypertension Respiratory History: Reports: Bronchitis, Recurrent Gastrointestinal History: Reports: Pancreatitis Other Gastrointestinal History: 5 years ago, current admission Genitourinary History: Reports: None CABLE HOOKER History: Reports: 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, Other CABLE HOOKER History: C section Musculoskeletal History: Reports: Fibromyalgia Neurological History: Reports: None Psychiatric History: Reports: Anxiety Endocrine/Metabolic History: Reports: Vitamin D Deficiency Hematologic History: Reports: Anemia Immunologic History: Reports: SLE Oncologic (Cancer) History: Reports: None Other Oncologic History: abnormal pap, never went back for follow up Colposcopy was done at that time Dermatologic History: Reports: None Other Dermatologic History: moles removed on face, gets hives - Infectious Disease History Infectious Disease History: Reports: Chicken Pox - Past Surgical History Head Surgeries/Procedures: Reports: None HEENT Surgical History: Reports: Adenoidectomy, Oral Surgery Cardiovascular Surgical History: Reports: None Respiratory Surgical History: Reports: None GI Surgical History: Reports: Cholecystectomy Female Surgical History: Reports: Section, Other (See Below) Other Female Surgeries/Procedures: exploratory lap, endoscopy Musculoskeletal Surgical History: Reports: None Oncologic Surgical History: Reports: None Social & Family History - Family History Family Medical History: Noncontributory Oncologic: Reports: Uterine - Tobacco Use Smoking Status *Q: Current Every Day Smoker Years of Tobacco use: 7 Packs/Tins Daily: 0.5 - Caffeine Use Caffeine Use: Reports: Coffee - Recreational Drug Use Recreational Drug Use: No - Living Situation & Occupation Living situation: Reports: (), with Family Occupation: Unemployed ED ROS GENERAL - Review of Systems Review Of Systems: Comprehensive ROS is negative, except as noted in HPI. ED EXAM, GI/ABD - Physical Exam Exam: See Below Exam Limited By: No Limitations General Appearance: Alert, WD/WN, Mild Distress Head: Atraumatic, Normocephalic Respiratory/Chest: No Respiratory Distress, Lungs Clear, Normal Breath Sounds, No Accessory Muscle Use, Chest Non-Tender Cardiovascular: Normal Peripheral Pulses, Regular Rate, Rhythm, No Edema, Tachycardia GI/Abdominal Exam: Normal Bowel Sounds, Soft, No Distention, Tender (to the left upper and left lower quadrants) Neurological: Alert, Oriented, Normal Cognition Psychiatric: Normal Affect, Normal Mood Skin Exam: Warm, Dry, Intact, Normal Color, No Rash Course - Vital Signs Last Recorded V/S: Last Vital Signs Temp 97.2 F 07/02/19 16:24 Pulse 150 H 07/02/19 16:24 Resp 24 H 07/02/19 16:24 BP 135/85 07/02/19 16:24 Pulse Ox 100 07/02/19 16:24 - Orders/Labs/Meds Orders: Active Orders 24 hr Category Date Time Status Peripheral IV Care [RC] . DIRECTED Care 07/02/19 16:50 Active Abdomen 2V AP Flat Upright [CR] Stat Exams 07/02/19 16:49 Taken UA W/MICROSCOPIC [URIN] Stat Lab 07/02/19 16:49 Ordered Sodium Chloride 0.9% [Normal Saline] 1,000 ml Med 07/02/19 17:00 Active IV ASDIRECTED Sodium Chloride 0.9% [Normal Saline] 1,000 ml Med 07/02/19 19:00 Active IV ASDIRECTED Sodium Chloride 0.9% [Saline Flush] Med 07/02/19 16:49 Active 10 ml FLUSH ASDIRECTED PRN Sodium Chloride 0.9% with KCl [Normal Saline with 40 Med 07/02/19 18:30 Active mEq KCl] 1,000 ml IV ASDIRECTED Peripheral IV Insertion Adult [OM.PC] Stat Oth 07/02/19 16:48 Ordered Medication Orders Sodium Chloride (Normal Saline) 1,000 mls @ 999 mls/hr IV ASDIRECTED ALISA Last Infusion: 07/02/19 18:31 Dose: 999 mls/hr Admin: 07/02/19 17:30 Dose: 999 mls/hr Potassium Chloride/Sodium Chloride (Normal Saline With 40 Meq Kcl) 1,000 mls @ 250 mls/hr IV ASDIRECTED ALISA Sodium Chloride (Normal Saline) 1,000 mls @ 999 mls/hr IV ASDIRECTED ALISA Last Admin: 07/02/19 18:58 Dose: 999 mls/hr Sodium Chloride (Saline Flush) 10 ml FLUSH ASDIRECTED PRN PRN Reason: Keep Vein Open Last Admin: 07/02/19 17:34 Dose: 10 ml Labs: Laboratory Tests 07/02/19 07/02/19 07/02/19 Range/Units 17:17 17:17 17:17 WBC 7.57 (3.98-10.04) K/mm3 RBC 4.63 (3.98-5.22) M/mm3 Hgb 16.4 H D (11.2-15.7) gm/dl Hct 47.5 H (34.1-44.9) % MCV 102.6 H D (79.4-94.8) fl MCH 35.4 H (25.6-32.2) pg MCHC 34.5 (32.2-35.5) g/dl RDW Std Deviation 52.4 H (36.4-46.3) fL Plt Count 211 (182-369) K/mm3 MPV 11.2 (9.4-12.3) fl Neut % (Auto) 75.4 H (34.0-71.1) % Lymph % (Auto) 18.1 L (19.3-51.7) % Hinds % (Auto) 4.6 L (4.7-12.5) % Eos % (Auto) 1.5 (0.7-5.8) Baso % (Auto) 0.1 (0.1-1.2) % Neut # (Auto) 5.71 (1.56-6.13) K/mm3 Lymph # (Auto) 1.37 (1.18-3.74) K/mm3 Hinds # (Auto) 0.35 (0.24-0.36) K/mm3 Eos # (Auto) 0.11 (0.04-0.36) K/mm3 Baso # (Auto) 0.01 (0.01-0.08) K/mm3 Sodium 136 (136-145) mEq/L Potassium 3.2 L (3.5-5.1) mEq/L Chloride 96 L (98-107) mEq/L Carbon Dioxide 23 (21-32) mEq/L Anion Gap 20.2 H (5-15) BUN 7 (7-18) mg/dL Creatinine 0.6 (0.55-1.02) mg/dL Est Cr Clr Drug Dosing 110.95 mL/min Estimated GFR (MDRD) > 60 (>60) mL/min BUN/Creatinine Ratio 11.7 L (14-18) Glucose 76 (74-106) mg/dL Calcium 10.0 (8.5-10.1) mg/dL Magnesium 1.8 (1.8-2.4) mg/dl Total Bilirubin 1.5 H (0.2-1.0) mg/dL AST 70 H (15-37) U/L ALT 27 (14-59) U/L Alkaline Phosphatase 175 H (46-116) U/L C-Reactive Protein 0.9 (<1.0) mg/dL Total Protein 9.3 H (6.4-8.2) g/dl Albumin 4.1 (3.4-5.0) g/dl Globulin 5.2 gm/dL Albumin/Globulin Ratio 0.8 L (1-2) Lipase 5664 H (73-393) U/L Meds: Medications Generic Name Dose Route Start Last Admin Trade Name Freq PRN Reason Stop Dose Admin Sodium Chloride 1,000 mls @ 999 mls/hr 07/02/19 17:00 07/02/19 18:31 Normal Saline IV Infused ASDIRECTED ALISA Infusion Potassium Chloride/Sodium Chloride 1,000 mls @ 250 mls/hr 07/02/19 18:30 Normal Saline With 40 Meq Kcl IV ASDIRECTED ALISA Sodium Chloride 1,000 mls @ 999 mls/hr 07/02/19 19:00 07/02/19 18:58 Normal Saline IV 999 mls/hr ASDIRECTED ALISA Administration Sodium Chloride 10 ml 07/02/19 16:49 07/02/19 17:34 Saline Flush FLUSH 10 ml ASDIRECTED PRN Administration Keep Vein Open Discontinued Medications Generic Name Dose Route Start Last Admin Trade Name Freq PRN Reason Stop Dose Admin Hydromorphone HCl 0.5 mg 07/02/19 16:49 07/02/19 17:24 Dilaudid IVPUSH 07/02/19 16:50 0.5 mg ONETIME ONE Administration Hydromorphone HCl 0.5 mg 07/02/19 18:14 07/02/19 18:25 Dilaudid IVPUSH 07/02/19 18:15 0.5 mg ONETIME ONE Administration Ketorolac Tromethamine 30 mg 07/02/19 16:49 07/02/19 17:24 Toradol IVPUSH 07/02/19 16:50 30 mg ONETIME ONE Administration Ondansetron HCl 4 mg 07/02/19 16:49 07/02/19 17:23 Zofran IVPUSH 07/02/19 16:50 4 mg ONETIME ONE Administration Potassium Chloride 40 meq 07/02/19 18:49 07/02/19 18:57 Klor-Con M20 PO 07/02/19 18:50 40 meq ONETIME ONE Administration - Re-Assessments/Exams Free Text/Narrative Re-Assessment/Exam: based on patient's exam and history, I feel this likely that she may be suffering from pancreatitis, constipation, or both. I do feel she is likely dehydrated. She was tachycardic at 150 on triage. At the time of exam her heart rate had improved to the 120s. She states that she does get dizzy when she stands. We'll start with a CBC, CMP, CRP, lipase,urinalysis and 2 view abdomen x-ray. I will give her 1 L bolus of normal saline, Dilaudid and Toradol for pain, and Zofran for nausea. 07/02/19 18:40 Patient's abdomen x-ray does show increased stool throughout the colon. This may be contributing to her pain. Her hematology does show that she is dehydrated hemoglobin is 16.4. Anion gap 20.2. Her potassium is low at 3.2. Lipase is elevated at 5664 indicating that her pancreatitis is likely also a cause of her pain. I will order NS with KCL and discuss the case with the hospitalist for a possible admission for fluids and pain management. 07/02/19 18:47 Case discussed with hospitalist, Dr. Cabrales. She recommends that the pt be transferred to see a GI specialist as this is a recurrent problem for her. Discussed this with the pt and she does not want to go to [place] at this time. She has had no vomiting while in the ER. She prefers to go home with po pain meds and a clear liquid diet and return to be transferred if her symptoms should worsen. She also states that she does have an appointment with her primary care provider, OSCAR Avalos on Friday. I will give her another liter of NS as well as po KCL instead of IV as she feels that she will be able to tolerate this. She states that she has zofran at home and that does work well for her nausea. She will be sent home with Percocet as needed for pain after her second liter of normal saline is completed. Her discharge instructions are as noted. I discussed her case with OSCAR Syed. She will assume care of the patient until she is completed with her second liter of normal saline and ready for discharge. Departure - Departure Time of Disposition: 19:03 Disposition: Home, Self-Care 01 Condition: Fair Clinical Impression: Pancreatitis, recurrent - Discharge Information *PRESCRIPTION DRUG MONITORING PROGRAM REVIEWED*: Yes *COPY OF PRESCRIPTION DRUG MONITORING REPORT IN PATIENT ZENON: No Prescriptions: oxyCODONE HCl/Acetaminophen [Percocet 5-325 mg Tablet] 1 - 2 each PO Q6H PRN # 20 tablet PRN Reason: Pain Instructions: Chronic Pancreatitis, Pain Medicine Instructions, [id number] Referrals: Leslie Gutiérrez PA-C [Primary Care Provider] - Forms: ED Department Discharge Additional Instructions: You were seen in the emergency Department today for left upper and lower quadrant abdominal pain as well as nausea and vomiting. Your workup included an x-ray of her abdomen as well as lab work. Your lab work did show that she was dehydrated. Her lipase was also elevated indicating that your pancreatitis is likely contributing to your pain. The x-ray your abdomen did show a significant amount of stool throughout your colon. It's possible this is also exacerbating her pain. It was recommended that we transfer you to [place] to be seen by a nickel operator. You declined this option and opted to go home this evening with pain medications and clear liquid diet. I would also recommend that ou take MiraLAX twice daily mixed with your clear fluids to try to clear up her constipation. You may use a Zofran that you have at home as needed for nausea. A prescription for Percocets one to 2 tabs every 6 hours has been sent to [facility]. Use these medications sparingly as needed for pain. As we discussed, it is very important that she follow-up with a nickel operator for definitive treatment for her chronic pancreatitis. if her symptoms do not improve, or get worse, please return to the emergency department and we will work on arranging transport to [place] to see gastroenterology. Sepsis Event Note - Evaluation Sepsis Screening Result: No Definite Risk - Focused Exam Vital Signs: Vital Signs Temp Pulse Resp BP Pulse Ox 07/02/19 16:24 97.2 F 150 H 24 H 135/85 100 Date Exam was Performed: 07/02/19 Time Exam was Performed: 19:13 - My Orders Last 24 Hours: My Active Orders 07/02/19 16:48 Peripheral IV Insertion Adult [OM.PC] Stat 07/02/19 16:49 Abdomen 2V AP Flat Upright [CR] Stat UA W/MICROSCOPIC [URIN] Stat Sodium Chloride 0.9% [Saline Flush] 10 ml FLUSH ASDIRECTED PRN 07/02/19 16:50 Peripheral IV Care [RC] . DIRECTED 07/02/19 17:00 Sodium Chloride 0.9% [Normal Saline] 1,000 ml IV ASDIRECTED 07/02/19 18:30 Sodium Chloride 0.9% with KCl [Normal Saline with 40 mEq KCl] 1,000 ml IV ASDIRECTED 07/02/19 19:00 Sodium Chloride 0.9% [Normal Saline] 1,000 ml IV ASDIRECTED - Assessment/Plan Last 24 Hours: My Active Orders 07/02/19 16:48 Peripheral IV Insertion Adult [OM.PC] Stat 07/02/19 16:49 Abdomen 2V AP Flat Upright [CR] Stat UA W/MICROSCOPIC [URIN] Stat Sodium Chloride 0.9% [Saline Flush] 10 ml FLUSH ASDIRECTED PRN 07/02/19 16:50 Peripheral IV Care [RC] . DIRECTED 07/02/19 17:00 Sodium Chloride 0.9% [Normal Saline] 1,000 ml IV ASDIRECTED 07/02/19 18:30 Sodium Chloride 0.9% with KCl [Normal Saline with 40 mEq KCl] 1,000 ml IV ASDIRECTED 07/02/19 19:00 Sodium Chloride 0.9% [Normal Saline] 1,000 ml IV ASDIRECTED
[2019-07-02] MEDS: Sodium Chloride 0.9% 1,000 ML IV SCH ×2 (17:30→18:57)
[2019-07-02] MEDS ORDERED: Sodium Chloride 0.9% with KCl 1,000 ML IV SCH (18:30)
[2019-07-02] MEDS ORDERED: Potassium Chloride 20 MEQ Tab.ER PO ONE (18:49)
[2019-07-02] MEDS ORDERED: Sodium Chloride 0.9% 1,000 ML IV SCH (19:00)
--- NOTE | 2019-07-04 17:48 | CR ---
Abdomen: Supine and upright views of the abdomen were obtained. Comparison: Previous abdominal x-ray of 10/06/18. No free air is seen. Surgical clips are seen from prior cholecystectomy. Calcifications are seen within the pelvis compatible with phleboliths. Bowel gas pattern is normal. Impression: 1. Nothing acute is seen on two-view abdominal x-ray. Diagnostic code #2 This report was dictated in [place] Standard Time
== END 2019-07-02 20:59 | disposition home or self-care (01) ==
LOC: JD.ED 16:15
DX: K86.1 Other chronic pancreatitis (principal); F17.210 Nicotine dependence, cigarettes, uncomplicated; Z88.6 Allergy status to analgesic agent; Z88.1 Allergy status to other antibiotic agents; Z91.048 Other nonmedicinal substance allergy status
CPT/HCPCS: 36415; 74019; 80053; 83690; 83735; 85025; 86140; 96361; 96374; 96375; 96376; 99284; A9270; J1170; J1885; J2405; J7030

== ENCOUNTER 2019-07-17 18:31 | Emergency (ER) | payer SELFPAY ==
[2019-07-17 18:40] VITALS: BP 159/107
[2019-07-17] MEDS ORDERED: Haloperidol Lactate 5 MG/ML SDV IVPUSH ONE (18:50)
[2019-07-17] MEDS ORDERED: Sodium Chloride 0.9% 1,000 ML IV ONE (18:50)
[2019-07-17] MEDS ORDERED: Sodium Chloride 0.9% 10 ML Syringe FLUSH PRN (18:50)
--- NOTE | 2019-07-17 18:55 | EDM.PDOC ---
ED HPI GENERAL MEDICAL PROBLEM - General Chief Complaint: Abdominal Pain Stated Complaint: ABDOMINAL PAIN Time Seen by Provider: 07/17/19 18:44 Source of Information: Reports: Patient History Limitations: Reports: No Limitations - History of Present Illness INITIAL COMMENTS - FREE TEXT/NARRATIVE: Patient is an unfortunate 29-year-old female who presents to the emergency Department today with complaint of abdominal pain. Patient reports she has had epigastric abdominal pain and vomiting for the past 3 days. She reports he's she has been trying to handle herself at home with her liquids. She 's not been able to keep any food or fluid down today so she presents to the emergency department for evaluation. She has an extensive history of chronic pancreatitis and has been hospitalized here multiple times in the past. Last two previous lipases on 07/09/2019 she was 270, on 07/02/2019 she was [id number] Upper Abdomen Pain Score (Numeric/FACES): 8 - Related Data Allergies Allergy/AdvReac Type Severity Reaction Status Date / Time adhesive tape Allergy Itching Verified 07/17/19 18:40 ibuprofen Allergy Hives Verified 07/17/19 18:40 azithromycin [From Zithromax] AdvReac Nausea Verified 07/17/19 18:40 Home Meds: Home Meds Ondansetron [Zofran ODT] 4 mg PO Q6H PRN #20 tab.dis 08/03/18 [Rx] Melatonin 5 mg PO BEDTIME PRN 05/04/19 [History] Pantoprazole Sodium [Protonix] 40 mg PO DAILY #30 tablet. 05/06/19 [Rx] oxyCODONE HCl/Acetaminophen [Percocet 5-325 mg Tablet] 1 - 2 each PO Q6H PRN # 20 tablet 07/02/19 [Rx] Acetaminophen with Codeine [Tylenol with Codeine #3 Tablet] 1 each PO Q4H PRN # 12 tablet 07/17/19 [Rx] Folic Acid 1 mg PO BEDTIME 07/17/19 [History] Hydrocodone/Acetaminophen [Hydrocodon-Acetaminophen 5-325] 1 each PO Q4HR PRN [History] Ondansetron [Zofran ODT] 4 mg PO TID PRN #8 tab.dis 07/17/19 [Rx] Past Medical History HEENT History: Reports: Other (See Below) Other HEENT History: Currently having difficulty hearing in right ear Cardiovascular History: Reports: Hypertension Respiratory History: Reports: Bronchitis, Recurrent Gastrointestinal History: Reports: Pancreatitis Other Gastrointestinal History: 5 years ago, current admission Genitourinary History: Reports: None SAFETY INTERN History: Reports: 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, Other SAFETY INTERN History: C section Musculoskeletal History: Reports: Fibromyalgia Neurological History: Reports: None Psychiatric History: Reports: Anxiety Endocrine/Metabolic History: Reports: Vitamin D Deficiency Hematologic History: Reports: Anemia Immunologic History: Reports: SLE Oncologic (Cancer) History: Reports: None Other Oncologic History: abnormal pap, never went back for follow up Colposcopy was done at that time Dermatologic History: Reports: None Other Dermatologic History: moles removed on face, gets hives - Infectious Disease History Infectious Disease History: Reports: Chicken Pox - Past Surgical History Head Surgeries/Procedures: Reports: None HEENT Surgical History: Reports: Adenoidectomy, Oral Surgery Cardiovascular Surgical History: Reports: None Respiratory Surgical History: Reports: None GI Surgical History: Reports: Cholecystectomy Female Surgical History: Reports: Section, Other (See Below) Other Female Surgeries/Procedures: exploratory lap, endoscopy Musculoskeletal Surgical History: Reports: None Oncologic Surgical History: Reports: None Social & Family History - Family History Family Medical History: Noncontributory Oncologic: Reports: Uterine - Tobacco Use Smoking Status *Q: Current Every Day Smoker Years of Tobacco use: 6 Packs/Tins Daily: 0.5 - Caffeine Use Caffeine Use: Reports: None - Recreational Drug Use Recreational Drug Use: No - Living Situation & Occupation Living situation: Reports: (), with Family Occupation: Unemployed ED ROS GENERAL - Review of Systems Review Of Systems: See Below Constitutional: Denies: Fever, Chills GI/Abdominal: Reports: Abdominal Pain, Constipation, Nausea, Vomiting. Denies: Diarrhea, Hematemesis, Hematochezia, Melena ED EXAM, GI/ABD - Physical Exam Exam: See Below Exam Limited By: No Limitations General Appearance: Alert, WD/WN, Moderate Distress Nose: Normal Inspection, Normal Mucosa, No Blood Throat/Mouth: Normal Inspection, Normal Lips, Normal Teeth, Normal Gums, Normal Oropharynx, Normal Voice, No Airway Compromise Head: Atraumatic, Normocephalic Neck: Normal Inspection, Supple, Non-Tender, Full Range of Motion Respiratory/Chest: No Respiratory Distress, Lungs Clear, Normal Breath Sounds, No Accessory Muscle Use, Chest Non-Tender Cardiovascular: Normal Peripheral Pulses, Regular Rate, Rhythm, No Edema, No Gallop, No JVD, No Murmur, No Rub GI/Abdominal Exam: Normal Bowel Sounds, Soft, Tender (Moderate epigastric tenderness) Back Exam: Normal Inspection, Full Range of Motion, NT Extremities: Normal Inspection, Normal Range of Motion, Non-Tender, Normal Capillary Refill, No Pedal Edema Neurological: Alert Skin Exam: Warm, Dry Course - Vital Signs Last Recorded V/S: Last Vital Signs Temp 97.8 F 07/17/19 18:38 Pulse 95 07/17/19 18:38 Resp 16 07/17/19 18:38 BP 159/107 H 07/17/19 18:38 Pulse Ox 100 07/17/19 18:38 - Orders/Labs/Meds Orders: Active Orders 24 hr Category Date Time Status UA RFX THERON AND CULT IF INDIC [URIN] Stat Lab 07/17/19 18:49 Ordered Sodium Chloride 0.9% [Saline Flush] Med 07/17/19 18:50 Active 10 ml FLUSH ASDIRECTED PRN Saline Lock Insert [OM.PC] Stat Oth 07/17/19 18:49 Ordered Medication Orders Sodium Chloride (Saline Flush) 10 ml FLUSH ASDIRECTED PRN PRN Reason: Keep Vein Open Last Admin: 07/17/19 19:07 Dose: 10 ml Labs: Laboratory Tests 07/17/19 07/17/19 07/17/19 Range/Units 19:05 19:05 19:05 WBC 9.03 (3.98-10.04) K/mm3 RBC 3.73 L (3.98-5.22) M/mm3 Hgb 13.4 (11.2-15.7) gm/dl Hct 39.6 (34.1-44.9) % MCV 106.2 H D (79.4-94.8) fl MCH 35.9 H (25.6-32.2) pg MCHC 33.8 (32.2-35.5) g/dl RDW Std Deviation 51.3 H (36.4-46.3) fL Plt Count 324 (182-369) K/mm3 MPV 11.1 (9.4-12.3) fl Neut % (Auto) 66.3 (34.0-71.1) % Lymph % (Auto) 21.7 (19.3-51.7) % Mcintosh % (Auto) 7.6 (4.7-12.5) % Eos % (Auto) 3.4 (0.7-5.8) Baso % (Auto) 0.7 (0.1-1.2) % Neut # (Auto) 5.98 (1.56-6.13) K/mm3 Lymph # (Auto) 1.96 (1.18-3.74) K/mm3 Mcintosh # (Auto) 0.69 H (0.24-0.36) K/mm3 Eos # (Auto) 0.31 (0.04-0.36) K/mm3 Baso # (Auto) 0.06 (0.01-0.08) K/mm3 Manual Slide Review Abnormal smear Sodium 136 (136-145) mEq/L Potassium 3.2 L (3.5-5.1) mEq/L Chloride 98 (98-107) mEq/L Carbon Dioxide 28 (21-32) mEq/L Anion Gap 13.2 (5-15) BUN 7 (7-18) mg/dL Creatinine 0.6 (0.55-1.02) mg/dL Est Cr Clr Drug Dosing 107.98 mL/min Estimated GFR (MDRD) > 60 (>60) mL/min BUN/Creatinine Ratio 11.7 L (14-18) Glucose 104 (74-106) mg/dL Calcium 9.0 (8.5-10.1) mg/dL Total Bilirubin 0.3 (0.2-1.0) mg/dL AST 49 H (15-37) U/L ALT 35 (14-59) U/L Alkaline Phosphatase 108 (46-116) U/L Total Protein 7.6 (6.4-8.2) g/dl Albumin 3.4 (3.4-5.0) g/dl Globulin 4.2 gm/dL Albumin/Globulin Ratio 0.8 L (1-2) Lipase 5316 H (73-393) U/L HCG, Qual Negative (NEGATIVE) Meds: Medications Generic Name Dose Route Start Last Admin Trade Name Freq PRN Reason Stop Dose Admin Sodium Chloride 10 ml 07/17/19 18:50 07/17/19 19:07 Saline Flush FLUSH 10 ml ASDIRECTED PRN Administration Keep Vein Open Discontinued Medications Generic Name Dose Route Start Last Admin Trade Name Irene PRN Reason Stop Dose Admin Haloperidol Lactate 5 mg 07/17/19 18:50 07/17/19 19:08 Haldol IVPUSH 07/17/19 18:51 5 mg ONETIME ONE Administration Sodium Chloride 1,000 mls @ 1,000 mls/hr 07/17/19 18:50 07/17/19 19:07 Normal Saline IV 07/17/19 19:49 1,000 mls/hr ONETIME ONE Administration - Re-Assessments/Exams Free Text/Narrative Re-Assessment/Exam: 07/17/19 20:12 Patient's lipase is 5300, she has acute pancreatitis and refuses admission this time understands that she is going to go home and do clear liquids at home, patient reports she does not have any analgesic medication at home patient has a very disconcerting on entering program, her last dose of oxycodone was quantity 10 on 07/09/2019, I are 2 that patient had a dose on 07/02/2019 of oxycodone 20, I discussed at great length with patient need for admission, patient refuses but agrees to return for any worsening condition 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 3 to go home with and anti-emetics and have patient follow-up with PCP and GI 07/17/19 20:16 Departure - Departure Time of Disposition: 20:14 Disposition: Home, Self-Care 01 Condition: Fair Clinical Impression: Pancreatitis, recurrent Abdominal pain Qualifiers: Abdominal location: epigastric Qualified Code(s): R10.13 - Epigastric pain - Discharge Information *PRESCRIPTION DRUG MONITORING PROGRAM REVIEWED*: Yes *COPY OF PRESCRIPTION DRUG MONITORING REPORT IN PATIENT ZENON: No Prescriptions: Acetaminophen with Codeine [Tylenol with Codeine #3 Tablet] 1 each PO Q4H PRN # 12 tablet PRN Reason: Pain Ondansetron [Zofran ODT] 4 mg PO TID PRN #8 tab.dis PRN Reason: Vomiting Referrals: Leslie Gutiérrez PA-C [Primary Care Provider] - Forms: ED Department Discharge Additional Instructions: Home, rest, adequate fluids, return as needed for worsening condition Sepsis Event Note - Evaluation Sepsis Screening Result: No Definite Risk - Focused Exam Vital Signs: Vital Signs Temp Pulse Resp BP Pulse Ox 07/17/19 18:38 97.8 F 95 16 159/107 H 100 Date Exam was Performed: 07/17/19 Time Exam was Performed: 20:12 - My Orders Last 24 Hours: My Active Orders 07/17/19 18:49 UA RFX THERON AND CULT IF INDIC [URIN] Stat Saline Lock Insert [OM.PC] Stat 07/17/19 18:50 Sodium Chloride 0.9% [Saline Flush] 10 ml FLUSH ASDIRECTED PRN - Assessment/Plan Last 24 Hours: My Active Orders 07/17/19 18:49 UA RFX THERON AND CULT IF INDIC [URIN] Stat Saline Lock Insert [OM.PC] Stat 07/17/19 18:50 Sodium Chloride 0.9% [Saline Flush] 10 ml FLUSH ASDIRECTED PRN
[2019-07-17] MEDS ORDERED: HYDROmorphone 0.5 MG/0.5 ML Syringe IVPUSH ONE (20:13)
[2019-07-17 20:33] VITALS: PULSE 81
== END 2019-07-17 20:30 | disposition home or self-care (01) ==
LOC: JD.ED 18:31
DX: K85.90 Acute pancreatitis without necrosis or infection, unspecified (principal); I10 Essential (primary) hypertension; F17.210 Nicotine dependence, cigarettes, uncomplicated; Z90.49 Acquired absence of other specified parts of digestive tract; Z91.09 Other allergy status, other than to drugs and biological substances; Z88.1 Allergy status to other antibiotic agents; Z88.6 Allergy status to analgesic agent; Z79.899 Other long term (current) drug therapy
CPT/HCPCS: 36415; 80053; 83690; 84703; 85025; 96361; 96374; 96375; 99284; J1170; J1630; J7030; 99283

== ENCOUNTER 2019-07-20 11:30 | Emergency (ER) | payer SELFPAY ==
[2019-07-20 11:44] VITALS: BP 155/114; PULSE 130
[2019-07-20] MEDS ORDERED: Sodium Chloride 0.9% 10 ML Syringe FLUSH PRN (12:29)
[2019-07-20] MEDS ORDERED: Dextrose 5%-Lactated Ringers 1,000 ML IV SCH ×2 (12:30→14:30)
[2019-07-20] MEDS ORDERED: Ondansetron 4 MG/2 ML SDV IVPUSH ONE (12:30)
[2019-07-20] MEDS ORDERED: HYDROmorphone 0.5 MG/0.5 ML Syringe IVPUSH ONE ×3 (12:30→15:43)
[2019-07-20] MEDS ORDERED: Sodium Chloride 0.9% 1,000 ML IV SCH (12:30)
--- NOTE | 2019-07-20 12:35 | EDM.PDOC ---
ED HPI GENERAL MEDICAL PROBLEM - General Chief Complaint: Abdominal Pain Stated Complaint: PANCREAS ISSUES Time Seen by Provider: 07/20/19 11:44 Source of Information: Reports: Patient History Limitations: Reports: No Limitations - History of Present Illness INITIAL COMMENTS - FREE TEXT/NARRATIVE: Patient is a 29-year-old female who presents with complaints of left upper quadrant abdominal pain and vomiting. Patient has a history of chronic pancreatitis. She was last seen in this ER 3 days ago with an acute flare. She declined admission stating that she could handle the pain at home if she has appropriate pain medications for it. She keeps a clear liquid diet while at home, however she states the medication that she was sent home with on the has not been helping. She was prescribed Tylenol with Codeine at that time. Prior to this patient was prescribed 10 oxycodone 5 mg by her primary care provider, Katlin Britton, on 09 July. Patient states that she has an appointment with her primary care provider on Friday and that they were unable to get her in before that time. She has an appointment in july with a GI specialist in [place]. Abdominal Pain Score (Numeric/FACES): 10 - Related Data Allergies Allergy/AdvReac Type Severity Reaction Status Date / Time adhesive tape Allergy Itching Verified 07/20/19 11:43 ibuprofen Allergy Hives Verified 07/20/19 11:43 azithromycin [From Zithromax] AdvReac Nausea Verified 07/20/19 11:43 Home Meds: Home Meds Ondansetron [Zofran ODT] 4 mg PO Q6H PRN #20 tab.dis 08/03/18 [Rx] Melatonin 5 mg PO BEDTIME PRN 05/04/19 [History] Pantoprazole Sodium [Protonix] 40 mg PO DAILY #30 tablet. 05/06/19 [Rx] oxyCODONE HCl/Acetaminophen [Percocet 5-325 mg Tablet] 1 - 2 each PO Q6H PRN # 20 tablet 07/02/19 [Rx] Acetaminophen with Codeine [Tylenol with Codeine #3 Tablet] 1 each PO Q4H PRN # 12 tablet 07/17/19 [Rx] Folic Acid 1 mg PO BEDTIME 07/17/19 [History] Hydrocodone/Acetaminophen [Hydrocodon-Acetaminophen 5-325] 1 each PO Q4HR PRN [History] Ondansetron [Zofran ODT] 4 mg PO TID PRN #8 tab.dis 07/17/19 [Rx] oxyCODONE 5 mg PO Q6H PRN #6 tab 07/20/19 [Rx] Past Medical History HEENT History: Reports: Other (See Below) Other HEENT History: Currently having difficulty hearing in right ear Cardiovascular History: Reports: Hypertension Respiratory History: Reports: Bronchitis, Recurrent Gastrointestinal History: Reports: Pancreatitis Other Gastrointestinal History: 5 years ago, current admission Genitourinary History: Reports: None SPARE HAND History: Reports: 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, Other SPARE HAND History: C section Musculoskeletal History: Reports: Fibromyalgia Neurological History: Reports: None Psychiatric History: Reports: Anxiety Endocrine/Metabolic History: Reports: Vitamin D Deficiency Hematologic History: Reports: Anemia Immunologic History: Reports: SLE Oncologic (Cancer) History: Reports: None Other Oncologic History: abnormal pap, never went back for follow up Colposcopy was done at that time Dermatologic History: Reports: None Other Dermatologic History: moles removed on face, gets hives - Infectious Disease History Infectious Disease History: Reports: Chicken Pox - Past Surgical History Head Surgeries/Procedures: Reports: None HEENT Surgical History: Reports: Adenoidectomy, Oral Surgery Cardiovascular Surgical History: Reports: None Respiratory Surgical History: Reports: None GI Surgical History: Reports: Cholecystectomy Female Surgical History: Reports: Section, Other (See Below) Other Female Surgeries/Procedures: exploratory lap, endoscopy Musculoskeletal Surgical History: Reports: None Oncologic Surgical History: Reports: None Social & Family History - Family History Family Medical History: Noncontributory Oncologic: Reports: Uterine - Tobacco Use Smoking Status *Q: Current Every Day Smoker Years of Tobacco use: 7 Packs/Tins Daily: 0.5 - Caffeine Use Caffeine Use: Reports: Coffee, Soda Other Caffeine Use: rarrely - Recreational Drug Use Recreational Drug Use: No - Living Situation & Occupation Living situation: Reports: (), with Family Occupation: Unemployed ED ROS GENERAL - Review of Systems Review Of Systems: See Below Constitutional: Reports: Decreased Appetite, Weight Loss HEENT: Reports: No Symptoms Respiratory: Reports: No Symptoms Cardiovascular: Reports: No Symptoms Endocrine: Reports: No Symptoms GI/Abdominal: Reports: Abdominal Pain, Anorexia, Nausea, Vomiting : Reports: No Symptoms Musculoskeletal: Reports: No Symptoms Skin: Reports: No Symptoms Neurological: Reports: No Symptoms Psychiatric: Reports: No Symptoms Hematologic/Lymphatic: Reports: No Symptoms Immunologic: Reports: No Symptoms ED EXAM, GI/ABD - Physical Exam Exam: See Below Exam Limited By: No Limitations General Appearance: Alert, WD/WN, Mild Distress, Cachetic Respiratory/Chest: No Respiratory Distress, Lungs Clear, Normal Breath Sounds, No Accessory Muscle Use, Chest Non-Tender Cardiovascular: Normal Peripheral Pulses, Regular Rate, Rhythm, No Edema, No Gallop, No JVD, No Murmur, No Rub GI/Abdominal Exam: Normal Bowel Sounds, Soft, No Distention, Tender (Tenderness to the LUQ and epigastrum) Neurological: Alert, Oriented, CN II-XII Intact, Normal Cognition, Normal Gait, Normal Reflexes, No Motor/Sensory Deficits Psychiatric: Normal Affect, Normal Mood Skin Exam: Warm, Dry, Intact, Normal Color, No Rash Course - Vital Signs Last Recorded V/S: Last Vital Signs Temp 98.0 F 07/20/19 11:41 Pulse 130 H 07/20/19 11:41 Resp 18 07/20/19 11:41 BP 155/114 H 07/20/19 11:41 Pulse Ox 100 07/20/19 11:41 - Orders/Labs/Meds Labs: Laboratory Tests 07/20/19 07/20/19 07/20/19 Range/Units 12:37 12:37 12:37 WBC 7.66 (3.98-10.04) K/mm3 RBC 4.24 (3.98-5.22) M/mm3 Hgb 15.3 D (11.2-15.7) gm/dl Hct 43.1 (34.1-44.9) % MCV 101.7 H D (79.4-94.8) fl MCH 36.1 H (25.6-32.2) pg MCHC 35.5 (32.2-35.5) g/dl RDW Std Deviation 50.9 H (36.4-46.3) fL Plt Count 343 (182-369) K/mm3 MPV 11.5 (9.4-12.3) fl Neut % (Auto) 76.3 H (34.0-71.1) % Lymph % (Auto) 16.2 L (19.3-51.7) % Early % (Auto) 4.8 (4.7-12.5) % Eos % (Auto) 2.1 (0.7-5.8) Baso % (Auto) 0.3 (0.1-1.2) % Neut # (Auto) 5.85 (1.56-6.13) K/mm3 Lymph # (Auto) 1.24 (1.18-3.74) K/mm3 Early # (Auto) 0.37 H (0.24-0.36) K/mm3 Eos # (Auto) 0.16 (0.04-0.36) K/mm3 Baso # (Auto) 0.02 (0.01-0.08) K/mm3 Sodium 138 (136-145) mEq/L Potassium 3.6 (3.5-5.1) mEq/L Chloride 100 (98-107) mEq/L Carbon Dioxide 22 (21-32) mEq/L Anion Gap 19.6 H (5-15) BUN 6 L (7-18) mg/dL Creatinine 0.6 (0.55-1.02) mg/dL Est Cr Clr Drug Dosing 107.98 mL/min Estimated GFR (MDRD) > 60 (>60) mL/min BUN/Creatinine Ratio 10.0 L (14-18) Glucose 85 (74-106) mg/dL Calcium 10.6 H D (8.5-10.1) mg/dL Total Bilirubin 0.6 (0.2-1.0) mg/dL AST 61 H (15-37) U/L ALT 37 (14-59) U/L Alkaline Phosphatase 151 H (46-116) U/L Total Protein 9.4 H (6.4-8.2) g/dl Albumin 4.1 (3.4-5.0) g/dl Globulin 5.3 gm/dL Albumin/Globulin Ratio 0.8 L (1-2) Lipase 1919 H (73-393) U/L Meds: Medications Discontinued Medications Generic Name Dose Route Start Last Admin Trade Name Freq PRN Reason Stop Dose Admin Hydromorphone HCl 0.5 mg 07/20/19 12:30 07/20/19 12:48 Dilaudid IVPUSH 07/20/19 12:31 0.5 mg ONETIME ONE Administration Hydromorphone HCl 0.5 mg 07/20/19 13:11 07/20/19 13:49 Dilaudid IVPUSH 07/20/19 13:12 0.5 mg ONETIME ONE Administration Hydromorphone HCl 0.5 mg 07/20/19 15:43 07/20/19 15:52 Dilaudid IVPUSH 07/20/19 15:44 0.5 mg ONETIME ONE Administration Dextrose/Lactated Ringer's 1,000 mls @ 999 mls/hr 07/20/19 12:30 07/20/19 12: 50 Dextrose 5%-Lactated Ringers IV 999 mls/hr ASDIRECTED ALISA Administration Sodium Chloride 1,000 mls @ 150 mls/hr 07/20/19 12:30 Normal Saline IV ASDIRECTED ALISA Dextrose/Lactated Ringer's 1,000 mls @ 999 mls/hr 07/20/19 14:30 07/20/19 14: 46 Dextrose 5%-Lactated Ringers IV 999 mls/hr ASDIRECTED ALISA Administration Ketorolac Tromethamine 30 mg 07/20/19 13:11 07/20/19 13:49 Toradol IVPUSH 07/20/19 13:12 30 mg ONETIME ONE Administration Ondansetron HCl 4 mg 07/20/19 12:30 07/20/19 12:45 Zofran IVPUSH 07/20/19 12:31 4 mg ONETIME ONE Administration Sodium Chloride 10 ml 07/20/19 12:29 07/20/19 13:05 Saline Flush FLUSH 10 ml ASDIRECTED PRN Administration Keep Vein Open - Re-Assessments/Exams Free Text/Narrative Re-Assessment/Exam: 07/20/19 16:00 Patient's labs were significant for an anion gap elevated at 19.6. She did receive 2 L of D5 LR while in the ER. Her lipase continues to be elevated though improved from her last visit. Current lipase is 1919 which is down from 5316 3 days ago. Patient continues to decline admission or transfer to [place] to see gastroenterology as she states she does not have anybody to watch her kids. I did call and speak with her primary care provider, Katlin Craig, and she was able to move her appointment up to 1300 tomorrow. I will discharge the patient home with orders to maintain a clear liquid diet and follow-up with primary care provider tomorrow. I will send her with 6 oxycodone to treat her pain until she can see Katlin tomorrow. I did emphasize with her that it is very important for her to keep her appointment with gastroenterology as of right now we are just treating her symptoms and this will keep recurring until they find the root cause of the problem. Discharge instructions as noted. Departure - Departure Time of Disposition: 16:00 Disposition: Home, Self-Care 01 Condition: Fair Clinical Impression: Pancreatitis Qualifiers: Chronicity: chronic Pancreatitis type: unspecified pancreatitis type Qualified Code(s): K86.1 - Other chronic pancreatitis - Discharge Information *PRESCRIPTION DRUG MONITORING PROGRAM REVIEWED*: No *COPY OF PRESCRIPTION DRUG MONITORING REPORT IN PATIENT ZENON: No Prescriptions: oxyCODONE 5 mg PO Q6H PRN #6 tab PRN Reason: Pain Instructions: Acute Pancreatitis, [id number] Referrals: Leslie Gutiérrez PA-C [Primary Care Provider] - Forms: ED Department Discharge Additional Instructions: You were seen in the emergency Department today for an acute flare of her chronic pancreatitis. You received 2 L of IV fluid as well as pain meds and nausea medications. We did speak with her primary care provider, Katlin Craig, and she was able to move your appointment up until 1:00 tomorrow afternoon. Ensure show that you arrived by 1245. A prescription for oxycodone has been sent to an [place] pharmacy in [facility]. There are 6 tabs which should be enough to get she threw to your appointment with Katlin tomorrow. As we discussed, it is essential that you keep your appointment with the GI specialist and Miguel in July as right now we are just treating the symptoms and not treating the cause of them. If you should experience any worsening symptoms, please don't hesitate to return to the emergency department. Sepsis Event Note - Evaluation Sepsis Screening Result: No Definite Risk - Focused Exam Date Exam was Performed: 07/21/19 Time Exam was Performed: 16:50
[2019-07-20] MEDS ORDERED: Ketorolac 30 MG/ML SDV IVPUSH ONE (13:11)
== END 2019-07-20 16:18 | disposition home or self-care (01) ==
LOC: JD.ED 11:30
DX: K86.1 Other chronic pancreatitis (principal); I10 Essential (primary) hypertension; F17.210 Nicotine dependence, cigarettes, uncomplicated; Z88.6 Allergy status to analgesic agent; Z88.1 Allergy status to other antibiotic agents; Z91.048 Other nonmedicinal substance allergy status; Z90.49 Acquired absence of other specified parts of digestive tract
CPT/HCPCS: 36415; 80053; 83690; 85025; 96361; 96374; 96375; 96376; 99284; J1170; J1885; J2405; J7121; 99283

== ENCOUNTER 2019-07-24 10:23 | Emergency (ER) | payer SELFPAY ==
[2019-07-24 10:41] VITALS: BP 133/93; PULSE 118
[2019-07-24] MEDS ORDERED: Sodium Chloride 0.9% 1,000 ML IV STA (11:08)
[2019-07-24] MEDS ORDERED: Ondansetron 4 MG/2 ML SDV IVPUSH ONE (11:08)
[2019-07-24] MEDS ORDERED: Sodium Chloride 0.9% 10 ML Syringe FLUSH PRN (11:08)
[2019-07-24] MEDS ORDERED: HYDROmorphone 1 MG/ML Syringe IVPUSH ONE ×2 (11:10→12:30)
[2019-07-24] MEDS ORDERED: Iopamidol 612 MG/ML 100 ML Bottle IVPUSH ONE (13:03)
[2019-07-24] MEDS ORDERED: Diatrizoate Meglumine/Diatrizoate Sodium 37% 120 ML Bottle PO ONE (13:03)
--- NOTE | 2019-07-24 13:43 | CT ---
CT abdomen and pelvis Technique: Multiple axial sections were obtained from above the dome of the diaphragm inferiorly to the pubic symphysis. Intravenous and oral contrast was utilized. Delayed images were also obtained through the abdomen and pelvis. Comparison: Previous CT abdomen and pelvis study of 03/01/19. Findings: Head of the pancreas is enlarged and shows multiple vague low density areas. Main pancreatic duct is dilated. These findings are more prominent than seen on prior CT study. There is also minimal haziness around the pancreatic head. Findings suggest possible mild pancreatitis. Visualized lung bases show nothing acute. Liver and spleen show no focal abnormality. Small amount of contrast is noted within the distal esophagus presumably from mild gastroesophageal reflux. Adrenal glands show no nodule. Kidneys show symmetric contrast enhancement without hydronephrosis or mass. Aorta shows no aneurysm. No retroperitoneal adenopathy or mesenteric abnormalities are noted. No pelvic mass or adenopathy is appreciated. No free fluid is seen. Appendix not definitely visualized. Delayed images were obtained which shows contrast excretion from both kidneys. Contrast noted within the bladder. Bone window settings were reviewed no discrete osseous finding seen in bone window settings. Impression: 1. Slightly abnormal pancreas as described above presumably due to mild pancreatitis. 2. Small amount of gastroesophageal reflux of contrast into the esophagus is noted. 3. No additional abnormality is appreciated. Diagnostic code #3 Study was dictated in [place] [employer] Time
[2019-07-24] MEDS ORDERED: HYDROmorphone 0.5 MG/0.5 ML Syringe IVPUSH ONE ×2 (14:02→15:00)
[2019-07-24] MEDS ORDERED: Potassium Chloride 10 MEQ in Premix Bag 1 BAG IV SCH (14:15)
--- NOTE | 2019-07-24 14:20 | EDM.PDOC ---
ED HPI GENERAL MEDICAL PROBLEM - General Chief Complaint: Abdominal Pain Stated Complaint: ABDOMINAL PAIN Time Seen by Provider: 07/24/19 10:45 Source of Information: Reports: Patient, Provider History Limitations: Reports: No Limitations - History of Present Illness INITIAL COMMENTS - FREE TEXT/NARRATIVE: The patient presents with abdominal pain, nausea and vomiting. This has been an ongoing problem for about 8 years after she had her gallbladder out. This has gotten much worse the past 2 months. She was admitted to the hospital in May and she has been in the ER multiple times and to see her doctor. Her lipase was 1812 yesterday. Her doctor has been trying to get her down to see the GI specialist but she could not go because she had no one to watch her children. She has lost lots of weight over the past couple months. She just lost 2 pounds in the past 2 days. She has no fever, chills, cough, chest pain or shortness of breath. She has not been able to eat or drink anything the past couple of days. Onset: Gradual Duration: Week(s): Location: Reports: Abdomen Quality: Reports: Sharp Severity: Moderate Improves with: Reports: None Worsens with: Reports: None Associated Symptoms: Reports: Nausea/Vomiting. Denies: Cough, Fever/Chills, Headaches, Shortness of Breath Upper Abdomen Pain Score (Numeric/FACES): 12 - Related Data Allergies Allergy/AdvReac Type Severity Reaction Status Date / Time adhesive tape Allergy Itching Verified 07/24/19 10:40 ibuprofen Allergy Hives Verified 07/24/19 10:40 azithromycin [From Zithromax] AdvReac Nausea Verified 07/24/19 10:40 Home Meds: Home Meds Ondansetron [Zofran ODT] 4 mg PO Q6H PRN #20 tab.dis 08/03/18 [Rx] Melatonin 5 mg PO BEDTIME PRN 05/04/19 [History] Pantoprazole Sodium [Protonix] 40 mg PO DAILY #30 tablet. 05/06/19 [Rx] oxyCODONE HCl/Acetaminophen [Percocet 5-325 mg Tablet] 1 - 2 each PO Q6H PRN # 20 tablet 07/02/19 [Rx] Acetaminophen with Codeine [Tylenol with Codeine #3 Tablet] 1 each PO Q4H PRN # 12 tablet 07/17/19 [Rx] Folic Acid 1 mg PO BEDTIME 07/17/19 [History] Hydrocodone/Acetaminophen [Hydrocodon-Acetaminophen 5-325] 1 each PO Q4HR PRN [History] Ondansetron [Zofran ODT] 4 mg PO TID PRN #8 tab.dis 07/17/19 [Rx] oxyCODONE 5 mg PO Q6H PRN #6 tab 07/20/19 [Rx] Past Medical History HEENT History: Reports: Other (See Below) Other HEENT History: Currently having difficulty hearing in right ear Cardiovascular History: Reports: Hypertension Respiratory History: Reports: Bronchitis, Recurrent Gastrointestinal History: Reports: Pancreatitis Other Gastrointestinal History: 5 years ago, current admission Genitourinary History: Reports: None FIELD LIABILITY GENERALIST History: Reports: 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, Other FIELD LIABILITY GENERALIST History: C section Musculoskeletal History: Reports: Fibromyalgia Neurological History: Reports: None Psychiatric History: Reports: Anxiety Endocrine/Metabolic History: Reports: Vitamin D Deficiency Hematologic History: Reports: Anemia Immunologic History: Reports: SLE Oncologic (Cancer) History: Reports: None Other Oncologic History: abnormal pap, never went back for follow up Colposcopy was done at that time Dermatologic History: Reports: None Other Dermatologic History: moles removed on face, gets hives - Infectious Disease History Infectious Disease History: Reports: Chicken Pox - Past Surgical History Head Surgeries/Procedures: Reports: None HEENT Surgical History: Reports: Adenoidectomy, Oral Surgery Cardiovascular Surgical History: Reports: None Respiratory Surgical History: Reports: None GI Surgical History: Reports: Cholecystectomy Female Surgical History: Reports: Section, Other (See Below) Other Female Surgeries/Procedures: exploratory lap, endoscopy Musculoskeletal Surgical History: Reports: None Oncologic Surgical History: Reports: None Social & Family History - Family History Family Medical History: Noncontributory Oncologic: Reports: Uterine - Tobacco Use Smoking Status *Q: Current Every Day Smoker Years of Tobacco use: 10 Packs/Tins Daily: 0.5 - Caffeine Use Caffeine Use: Reports: None Other Caffeine Use: rarrely - Recreational Drug Use Recreational Drug Use: No - Living Situation & Occupation Living situation: Reports: (), with Family Occupation: Unemployed ED ROS GENERAL - Review of Systems Review Of Systems: See Below Constitutional: Reports: No Symptoms HEENT: Reports: No Symptoms Respiratory: Reports: No Symptoms Cardiovascular: Reports: No Symptoms Endocrine: Reports: No Symptoms GI/Abdominal: Reports: Abdominal Pain, Nausea, Vomiting. Denies: Diarrhea : Reports: No Symptoms Musculoskeletal: Reports: No Symptoms ED EXAM, GI/ABD - Physical Exam Exam: See Below Exam Limited By: No Limitations General Appearance: Alert, No Apparent Distress Ears: Normal External Exam Nose: Normal Inspection Head: Atraumatic, Normocephalic Neck: Normal Inspection Respiratory/Chest: No Respiratory Distress, Lungs Clear, Normal Breath Sounds Cardiovascular: Regular Rate, Rhythm, No Edema, No Murmur GI/Abdominal Exam: Soft, Tender (Moderate to severe upper abdominal pain) Back Exam: Normal Inspection Course - Vital Signs Last Recorded V/S: Last Vital Signs Temp 99.1 F 07/24/19 10:39 Pulse 118 H 07/24/19 10:39 Resp 18 07/24/19 10:39 BP 133/93 H 07/24/19 10:39 Pulse Ox 100 07/24/19 10:39 - Orders/Labs/Meds Orders: Active Orders 24 hr Category Date Time Status Peripheral IV Care [RC] . DIRECTED Care 07/24/19 11:09 Active UA W/MICROSCOPIC [URIN] Stat Lab 07/24/19 11:08 Ordered Potassium Chloride [KCl 10 MEQ in Water 100 ML] 10 meq Med 07/24/19 14:15 Active Premix Bag 1 bag IV ASDIRECTED Sodium Chloride 0.9% [Saline Flush] Med 07/24/19 11:08 Active 10 ml FLUSH ASDIRECTED PRN ED Antiemetic Medication Reflex [OM.PC] Stat Oth 07/24/19 11:09 Ordered Peripheral IV Insertion Adult [OM.PC] Stat Oth 07/24/19 11:08 Ordered Medication Orders Potassium Chloride 10 meq/ (Premix) 100 mls @ 100 mls/hr IV ASDIRECTED ALISA Sodium Chloride (Saline Flush) 10 ml FLUSH ASDIRECTED PRN PRN Reason: Keep Vein Open Last Admin: 07/24/19 11:22 Dose: 10 ml Labs: Laboratory Tests 07/24/19 07/24/19 07/24/19 Range/Units 11:40 11:40 11:40 WBC 7.45 (3.98-10.04) K/mm3 RBC 3.54 L (3.98-5.22) M/mm3 Hgb 12.3 (11.2-15.7) gm/dl Hct 36.3 (34.1-44.9) % MCV 102.5 H (79.4-94.8) fl MCH 34.7 H (25.6-32.2) pg MCHC 33.9 (32.2-35.5) g/dl RDW Std Deviation 48.1 H (36.4-46.3) fL Plt Count 238 (182-369) K/mm3 MPV 11.2 (9.4-12.3) fl Neut % (Auto) 71.6 H (34.0-71.1) % Lymph % (Auto) 18.8 L (19.3-51.7) % [place] % (Auto) 7.7 (4.7-12.5) % Eos % (Auto) 1.5 (0.7-5.8) Baso % (Auto) 0.3 (0.1-1.2) % Neut # (Auto) 5.34 (1.56-6.13) K/mm3 Lymph # (Auto) 1.40 (1.18-3.74) K/mm3 [place] # (Auto) 0.57 H (0.24-0.36) K/mm3 Eos # (Auto) 0.11 (0.04-0.36) K/mm3 Baso # (Auto) 0.02 (0.01-0.08) K/mm3 Sodium 139 (136-145) mEq/L Potassium 2.8 L (3.5-5.1) mEq/L Chloride 100 (98-107) mEq/L Carbon Dioxide 25 (21-32) mEq/L Anion Gap 16.8 H (5-15) BUN 8 (7-18) mg/dL Creatinine 0.8 (0.55-1.02) mg/dL Est Cr Clr Drug Dosing 77.27 mL/min Estimated GFR (MDRD) > 60 (>60) mL/min BUN/Creatinine Ratio 10.0 L (14-18) Glucose 79 (74-106) mg/dL Calcium 9.4 (8.5-10.1) mg/dL Total Bilirubin 0.5 (0.2-1.0) mg/dL AST 54 H (15-37) U/L ALT 25 (14-59) U/L Alkaline Phosphatase 122 H (46-116) U/L Total Protein 7.8 (6.4-8.2) g/dl Albumin 3.3 L (3.4-5.0) g/dl Globulin 4.5 gm/dL Albumin/Globulin Ratio 0.7 L (1-2) Lipase 1870 H (73-393) U/L HCG, Qual Negative (NEGATIVE) Meds: Medications Generic Name Dose Route Start Last Admin Trade Name Freq PRN Reason Stop Dose Admin Potassium Chloride 10 meq/ 100 mls @ 100 mls/hr 07/24/19 14:15 Premix IV ASDIRECTED ALISA Sodium Chloride 10 ml 07/24/19 11:08 07/24/19 11:22 Saline Flush FLUSH 10 ml ASDIRECTED PRN Administration Keep Vein Open Discontinued Medications Generic Name Dose Route Start Last Admin Trade Name Freq PRN Reason Stop Dose Admin Diatrizoate Meglum/Diatrizoate Sod 90 ml 07/24/19 13:03 07/24/19 13:21 Gastrografin 37% PO 07/24/19 13:04 90 ml ONETIME ONE Administration Hydromorphone HCl 1 mg 07/24/19 11:10 07/24/19 11:27 Dilaudid IVPUSH 07/24/19 11:11 1 mg ONETIME ONE Administration Hydromorphone HCl 1 mg 07/24/19 12:30 07/24/19 12:38 Dilaudid IVPUSH 07/24/19 12:31 1 mg ONETIME ONE Administration Hydromorphone HCl 0.5 mg 07/24/19 14:02 Dilaudid IVPUSH 07/24/19 14:03 ONETIME ONE Sodium Chloride 1,000 mls @ 1,000 mls/hr 07/24/19 11:08 07/24/19 11:21 Normal Saline IV 07/24/19 12:07 1,000 mls/hr .BOLUS STA Administration Iopamidol 100 ml 07/24/19 13:03 07/24/19 13:21 Isovue-300 (61%) IVPUSH 07/24/19 13:04 100 ml ONETIME ONE Administration Ondansetron HCl 4 mg 07/24/19 11:08 07/24/19 11:21 Zofran IVPUSH 07/24/19 11:09 4 mg ONETIME ONE Administration - Re-Assessments/Exams Free Text/Narrative Re-Assessment/Exam: 07/24/19 14:33 I ordered an IV NS 1L bolus, zofran 4mg IV, dilaudid 1mg IV, labs, UA and a CT of her abdomen and pelvis. Her CBC looks good. Her K was low at 2.8. Her anion gap was 11.8. Her AST was elevated at 54. Her alk phos was elevated at 122. Her lipase was 1870. Her HCG is negative. Her CT shows head of the pancreas is enlarged and shows multiple vague low density areas. Main pancreatic duct is dilated. These findings are more prominent than seen on prior CT study on 03/01/19. There is also minimal haziness around the pancreatic head. Findings suggest possible mild pancreatitis. I feel she needs to be admitted. I do think she may benefit from GI in [place]. I called [facility] [place] and talked with Dr Mondragon and she agreed to the admission. Departure - Departure Time of Disposition: 14:40 Disposition: DC/Tfer to Acute Hospital 02 Condition: Poor Clinical Impression: Hypokalemia Pancreatitis Qualifiers: Chronicity: chronic Pancreatitis type: unspecified pancreatitis type Qualified Code(s): K86.1 - Other chronic pancreatitis - Discharge Information Referrals: Leslie Gutiérrez PA-C [Primary Care Provider] - Forms: ED Department Discharge Sepsis Event Note - Evaluation Sepsis Screening Result: No Definite Risk - Focused Exam Vital Signs: Vital Signs Temp Pulse Resp BP Pulse Ox 07/24/19 10:39 99.1 F 118 H 18 133/93 H 100 Date Exam was Performed: 07/24/19 Time Exam was Performed: 14:32 - My Orders Last 24 Hours: My Active Orders 07/24/19 11:08 UA W/MICROSCOPIC [URIN] Stat Sodium Chloride 0.9% [Saline Flush] 10 ml FLUSH ASDIRECTED PRN Peripheral IV Insertion Adult [OM.PC] Stat 07/24/19 11:09 Peripheral IV Care [RC] . DIRECTED ED Antiemetic Medication Reflex [OM.PC] Stat 07/24/19 14:15 Potassium Chloride [KCl 10 MEQ in Water 100 ML] 10 meq Premix Bag 1 bag IV ASDIRECTED - Assessment/Plan Last 24 Hours: My Active Orders 07/24/19 11:08 UA W/MICROSCOPIC [URIN] Stat Sodium Chloride 0.9% [Saline Flush] 10 ml FLUSH ASDIRECTED PRN Peripheral IV Insertion Adult [OM.PC] Stat 07/24/19 11:09 Peripheral IV Care [RC] . DIRECTED ED Antiemetic Medication Reflex [OM.PC] Stat 07/24/19 14:15 Potassium Chloride [KCl 10 MEQ in Water 100 ML] 10 meq Premix Bag 1 bag IV ASDIRECTED
[2019-07-24] MEDS ORDERED: Potassium Chloride 20 MEQ Tab.ER PO ONE (14:49)
== END 2019-07-24 15:29 ==
LOC: JD.ED 10:23
DX: K86.1 Other chronic pancreatitis (principal); E87.6 Hypokalemia; I10 Essential (primary) hypertension; F17.210 Nicotine dependence, cigarettes, uncomplicated; Z88.0 Allergy status to penicillin; Z88.1 Allergy status to other antibiotic agents; Z79.899 Other long term (current) drug therapy
CPT/HCPCS: 36415; 74177; 80053; 81001; 83690; 84703; 85025; 96361; 96374; 96375; 96376; 99285; A9270; J1170; J2405; J7030; Q9963; Q9967; 99284

== ENCOUNTER 2019-12-04 21:01 | Emergency (ER) | payer SELFPAY ==
[2019-12-04] MEDS ORDERED: Bupivacaine 0.5% 10 ML SDV INJECT ONE (22:48)
[2019-12-04] MEDS ORDERED: Lidocaine 1% with EPINEPHrine 1:100,000 20 ML MDV INJECT ONE (22:48)
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
[2019-12-05 00:07] VITALS: BP 113/75; PULSE 99
== END 2019-12-05 00:16 | disposition home or self-care (01) ==
LOC: JD.ED 21:01
DX: S51.811A Laceration without foreign body of right forearm, initial encounter (principal); F41.9 Anxiety disorder, unspecified; F32.9 Major depressive disorder, single episode, unspecified; F17.210 Nicotine dependence, cigarettes, uncomplicated; Z88.6 Allergy status to analgesic agent; Z88.1 Allergy status to other antibiotic agents; Z91.048 Other nonmedicinal substance allergy status; X78.8XXA Intentional self-harm by other sharp object, initial encounter
CPT/HCPCS: 12004; 99283; J3490; 99282

== ENCOUNTER 2020-01-01 12:04 | Emergency (ER) | payer MEDICAID, OTHER ==
[2020-01-01] MEDS ORDERED: Ondansetron 4 MG/2 ML SDV IVPUSH ONE (12:56)
[2020-01-01] MEDS ORDERED: HYDROmorphone 0.5 MG/0.5 ML Syringe IVPUSH ONE ×4 (12:56→16:44)
[2020-01-01] MEDS ORDERED: Sodium Chloride 0.9% 10 ML Syringe FLUSH PRN (12:56)
[2020-01-01] MEDS ORDERED: Sodium Chloride 0.9% 1,000 ML IV SCH (13:00)
[2020-01-01] MEDS ORDERED: Dextrose 5%-Lactated Ringers 1,000 ML IV SCH (14:30)
[2020-01-01] MEDS ORDERED: LORazepam 2 MG/ML SDV IVPUSH ONE (15:08)
[2020-01-01] MEDS ORDERED: Ketorolac 30 MG/ML SDV IVPUSH ONE (15:33)
--- NOTE | 2020-01-01 16:51 | EDM.PDOC ---
ED HPI GENERAL MEDICAL PROBLEM - General Chief Complaint: Abdominal Pain Stated Complaint: PANCREATITIS Time Seen by Provider: 01/01/20 12:49 Source of Information: Reports: Patient History Limitations: Reports: No Limitations - History of Present Illness INITIAL COMMENTS - FREE TEXT/NARRATIVE: She is a 29-year-old female who presents to the ER with complaints of left sided abdominal pain for the last 3 days. She does have a history of chronic pancreatitis and states that she has been able to manage her symptoms fairly well at home using her oxycodone and clear liquids as needed. This episode began about 3 days ago. States she has been taking Tylenol and oxycodone, however she cannot get on top of the pain. She has had 2 episodes of vomiting since the onset of this flare, however states she has been able to keep fluids down if she drinks it slowly. She was sent to [facility] back in July for a similar episode. States she saw gastroenterology while she was there and was told that "everything looked good ". She is scheduled for a follow-up appointment here at the end of December. She denies alcohol or illicit drug use. Upper Abdomen Pain Score (Numeric/FACES): 8 - Related Data Allergies Allergy/AdvReac Type Severity Reaction Status Date / Time adhesive tape Allergy Severe Itching Verified 01/01/20 12:44 ibuprofen Allergy Severe Hives Verified 01/01/20 12:44 azithromycin [From Zithromax] AdvReac Severe Nausea Verified 01/01/20 12:44 Home Meds: Home Meds Melatonin 5 mg PO BEDTIME PRN 05/04/19 [History] Pantoprazole Sodium [Protonix] 40 mg PO DAILY #30 05/06/19 [Rx] Acetaminophen with Codeine [Tylenol with Codeine #3 Tablet] 1 each PO Q4H PRN #12 tablet 07/17/19 [Rx] Folic Acid 1 mg PO BEDTIME 07/17/19 [History] Ondansetron [Zofran ODT] 4 mg PO TID PRN #8 tab.dis 07/17/19 [Rx] oxyCODONE 5 mg PO Q6H PRN #6 tab 07/20/19 [Rx] traZODone HCl [Trazodone HCl] 50 mg PO BEDTIME 12/04/19 [History] Ciprofloxacin HCl [Cipro] 500 mg PO Q12H #10 tablet 01/01/20 [Rx] Past Medical History HEENT History: Reports: Other (See Below) Other HEENT History: Currently having difficulty hearing in right ear Cardiovascular History: Reports: Hypertension Respiratory History: Reports: Bronchitis, Recurrent Gastrointestinal History: Reports: Pancreatitis Other Gastrointestinal History: 5 years ago, current admission Genitourinary History: Reports: None PULP GRINDER History: Reports: 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, Spontaneous Other PULP GRINDER History: C section Musculoskeletal History: Reports: Fibromyalgia Neurological History: Reports: None Psychiatric History: Reports: Addiction, Anxiety, Depression, Other (See Below) Endocrine/Metabolic History: Reports: Vitamin D Deficiency Hematologic History: Reports: Anemia Immunologic History: Reports: SLE Oncologic (Cancer) History: Reports: None Other Oncologic History: abnormal pap, never went back for follow up Colposcopy was done at that time Dermatologic History: Reports: None Other Dermatologic History: moles removed on face, gets hives - Infectious Disease History Infectious Disease History: Reports: Chicken Pox - Past Surgical History Head Surgeries/Procedures: Reports: None HEENT Surgical History: Reports: Adenoidectomy, Oral Surgery Cardiovascular Surgical History: Reports: None Respiratory Surgical History: Reports: None GI Surgical History: Reports: Cholecystectomy, ERCP Female Surgical History: Reports: Section, Other (See Below) Musculoskeletal Surgical History: Reports: None Oncologic Surgical History: Reports: None Social & Family History - Family History Family Medical History: Noncontributory Oncologic: Reports: Uterine - Tobacco Use Smoking Status *Q: Current Every Day Smoker Years of Tobacco use: 10 Packs/Tins Daily: 0.5 - Caffeine Use Caffeine Use: Reports: None Other Caffeine Use: rarrely - Recreational Drug Use Recreational Drug Use: No - Living Situation & Occupation Living situation: Reports: (), with Significant Other (Boyfriend), with Family (2 kids) Occupation: Unemployed ED ROS GENERAL - Review of Systems Review Of Systems: See Below Constitutional: Reports: Decreased Appetite. Denies: Fever, Chills, Weakness HEENT: Reports: No Symptoms Respiratory: Reports: No Symptoms. Denies: Shortness of Breath, Cough Cardiovascular: Reports: No Symptoms Endocrine: Reports: No Symptoms GI/Abdominal: Reports: Abdominal Pain, Nausea, Vomiting. Denies: Diarrhea : Reports: No Symptoms. Denies: Discharge, Dysuria, Flank Pain, Frequency Musculoskeletal: Reports: No Symptoms Skin: Reports: No Symptoms Neurological: Reports: No Symptoms. Denies: Dizziness, Headache Psychiatric: Reports: Anxiety Hematologic/Lymphatic: Reports: No Symptoms Immunologic: Reports: No Symptoms ED EXAM, GI/ABD - Physical Exam Exam: See Below Exam Limited By: No Limitations General Appearance: Alert, WD/WN, No Apparent Distress, Cachetic Respiratory/Chest: No Respiratory Distress, Lungs Clear, Normal Breath Sounds, No Accessory Muscle Use, Chest Non-Tender Cardiovascular: Normal Peripheral Pulses, Regular Rate, Rhythm, No Edema, No Gallop, No JVD, No Murmur, No Rub GI/Abdominal Exam: Normal Bowel Sounds, Soft, No Organomegaly, No Distention, No Abnormal Bruit, No Mass, Pelvis Stable, Tender (Left upper quadrant and left lateral) Back Exam: Normal Inspection, Full Range of Motion, NT Extremities: Normal Inspection, Normal Range of Motion, Non-Tender, Normal Capillary Refill, No Pedal Edema Neurological: Alert, Oriented, CN II-XII Intact, Normal Cognition, Normal Gait, Normal Reflexes, No Motor/Sensory Deficits Psychiatric: Normal Affect, Normal Mood Skin Exam: Warm, Dry, Intact, Normal Color, No Rash Course - Vital Signs Last Recorded V/S: Last Vital Signs Temp 98.4 F 01/01/20 15:46 Pulse 64 01/01/20 18:15 Resp 16 01/01/20 18:15 BP 116/90 01/01/20 18:15 Pulse Ox 96 01/01/20 18:15 - Orders/Labs/Meds Orders: Active Orders 24 hr Category Date Time Status Peripheral IV Care [RC] . DIRECTED Care 01/01/20 12:56 Active CULTURE URINE [RM] Stat Lab 01/01/20 17:40 Received Dextrose 5%-Lactated Ringers 1,000 ml Med 01/01/20 14:30 Active IV ASDIRECTED Nitrofurantoin [place]/Macrocryst [Macrobid] Med 01/01/20 18:27 Stop Req 100 mg PO ONETIME ONE Sodium Chloride 0.9% [Normal Saline] 1,000 ml Med 01/01/20 13:00 Active IV ASDIRECTED Sodium Chloride 0.9% [Saline Flush] Med 01/01/20 12:56 Active 10 ml FLUSH ASDIRECTED PRN Peripheral IV Insertion Adult [OM.PC] Stat Oth 01/01/20 12:56 Ordered Medication Orders Sodium Chloride (Normal Saline) 1,000 mls @ 999 mls/hr IV ASDIRECTED [facility] Last Admin: 01/01/20 13:14 Dose: 999 mls/hr Documented by: YOVANA Dextrose/Lactated Ringer's (Dextrose 5%-Lactated Ringers) 1,000 mls @ 999 mls/hr IV ASDIRECTED [facility] Last Admin: 01/01/20 14:56 Dose: 999 mls/hr Documented by: YOVANA Sodium Chloride (Saline Flush) 10 ml FLUSH ASDIRECTED PRN PRN Reason: Keep Vein Open Last Admin: 01/01/20 13:10 Dose: 10 ml Documented by: YOVANA Labs: Laboratory Tests 01/01/20 01/01/20 01/01/20 Range/Units 13:05 13:05 17:40 WBC 4.50 (3.98-10.04) K/mm3 RBC 3.81 L (3.98-5.22) M/mm3 Hgb 12.9 (11.2-15.7) gm/dl Hct 38.5 (34.1-44.9) % MCV 101.0 H (79.4-94.8) fl MCH 33.9 H (25.6-32.2) pg MCHC 33.5 (32.2-35.5) g/dl RDW Std Deviation 64.7 H (36.4-46.3) fL Plt Count 115 L D (182-369) K/mm3 MPV 11.5 (9.4-12.3) fl Neut % (Auto) 69.0 (34.0-71.1) % Lymph % (Auto) 21.3 (19.3-51.7) % [place] % (Auto) 6.2 (4.7-12.5) % Eos % (Auto) 2.9 (0.7-5.8) Baso % (Auto) 0.4 (0.1-1.2) % Neut # (Auto) 3.10 (1.56-6.13) K/mm3 Lymph # (Auto) 0.96 L (1.18-3.74) K/mm3 [place] # (Auto) 0.28 (0.24-0.36) K/mm3 Eos # (Auto) 0.13 (0.04-0.36) K/mm3 Baso # (Auto) 0.02 (0.01-0.08) K/mm3 Sodium 137 (136-145) mEq/L Potassium 3.3 L (3.5-5.1) mEq/L Chloride 98 (98-107) mEq/L Carbon Dioxide 30 (21-32) mEq/L Anion Gap 12.3 (5-15) BUN 7 (7-18) mg/dL Creatinine 0.6 (0.55-1.02) mg/dL Est Cr Clr Drug Dosing 115.91 mL/min Estimated GFR (MDRD) > 60 (>60) mL/min BUN/Creatinine Ratio 11.7 L (14-18) Glucose 84 (74-106) mg/dL Calcium 9.5 (8.5-10.1) mg/dL Total Bilirubin 1.2 H (0.2-1.0) mg/dL AST 115 H (15-37) U/L ALT 66 H (14-59) U/L Alkaline Phosphatase 147 H (46-116) U/L C-Reactive Protein 4.5 H* (<1.0) mg/dL Total Protein 7.9 (6.4-8.2) g/dl Albumin 3.7 (3.4-5.0) g/dl Globulin 4.2 gm/dL Albumin/Globulin Ratio 0.9 L (1-2) Lipase 1629 H (73-393) U/L Urine Color Yellow (Yellow) Urine Appearance Slt cloudy H (Clear) Urine pH 6.5 (5.0-8.0) Ur Specific [place] 1.020 (1.005-1.030) Urine Protein Negative (Negative) Urine Glucose (UA) Negative (Negative) Urine Ketones Negative (Negative) Urine Occult Blood Negative (Negative) Urine Nitrite Positive H (Negative) Urine Bilirubin Negative (Negative) Urine Urobilinogen 1.0 (0.2-1.0) Ur Leukocyte Esterase Trace H (Negative) Urine RBC 0-5 (0-5) /hpf Urine WBC 10-20 H (0-5) /hpf Ur Squamous Epith Cells 0-5 (0-5) /hpf Urine Bacteria Many H (FEW) /hpf Urine Mucus Few (FEW) /hpf Meds: Medications Generic Name Dose Route Start Last Admin Trade Name Freq PRN Reason Stop Dose Admin Sodium Chloride 1,000 mls @ 999 mls/hr 01/01/20 13:00 01/01/20 13:14 Normal Saline IV 999 mls/hr ASDIRECTED ALISA Administration Dextrose/Lactated Ringer's 1,000 mls @ 999 mls/hr 01/01/20 14:30 01/01/20 14:56 Dextrose 5%-Lactated Ringers IV 999 mls/hr ASDIRECTED ALISA Administration Sodium Chloride 10 ml 01/01/20 12:56 01/01/20 13:10 Saline Flush FLUSH 10 ml ASDIRECTED PRN Administration Keep Vein Open Discontinued Medications Generic Name Dose Route Start Last Admin Trade Name Bryanq PRN Reason Stop Dose Admin Hydromorphone HCl 0.5 mg 01/01/20 12:56 01/01/20 13:12 Dilaudid IVPUSH 01/01/20 12:57 0.5 mg ONETIME ONE Administration Hydromorphone HCl 0.5 mg 01/01/20 13:39 01/01/20 13:53 Dilaudid IVPUSH 01/01/20 13:40 0.5 mg ONETIME ONE Administration Hydromorphone HCl 0.5 mg 01/01/20 14:27 01/01/20 14:53 Dilaudid IVPUSH 01/01/20 14:28 0.5 mg ONETIME ONE Administration Hydromorphone HCl 0.5 mg 01/01/20 16:44 01/01/20 17:06 Dilaudid IVPUSH 01/01/20 16:45 0.5 mg ONETIME ONE Administration Ketorolac Tromethamine 30 mg 01/01/20 15:33 01/01/20 15:42 Toradol IVPUSH 01/01/20 15:34 30 mg ONETIME ONE Administration Lorazepam 0.5 mg 01/01/20 15:08 01/01/20 15:21 Ativan IVPUSH 01/01/20 15:09 0.5 mg ONETIME ONE Administration Nitrofurantoin Macrocrystals 100 mg 01/01/20 18:27 Macrobid PO 01/01/20 18:28 ONETIME ONE Ondansetron HCl 4 mg 01/01/20 12:56 01/01/20 13:10 Zofran IVPUSH 01/01/20 12:57 4 mg ONETIME ONE Administration Oxycodone HCl 10 mg 01/01/20 17:40 01/01/20 17:45 Oxycodone PO 01/01/20 17:41 10 mg ONETIME ONE Administration - Re-Assessments/Exams Free Text/Narrative Re-Assessment/Exam: Is a 29-year-old female with a history of chronic, recurrent pancreatitis. She has been doing fairly well up in the last few days. States she can generally control her symptoms with her oxycodone and clear liquid diet at home. Over the last few days she has had worsening discomfort. She had 2 episodes of vomiting. Last dose of oxycodone was around 3:00 this morning. She has seen gastroenterology during her last admission to the hospital in [place]. States that they did an examination and told her that everything looks good. She is scheduled for a follow-up appointment at the end of December. Her primary care provider is Katlin Britton. Will order CBC, CMP, CRP, and urinalysis. We will start with a 1 L bolus of normal saline, Dilaudid, and Zofran 01/01/20 16:46 Hematology was significant for potassium slightly low at 3.3, bili slightly elevated at 1.2, AST 115, ALT 67, alk phos 147, CRP 4.5, lipase 1629. These findings been discussed with the patient. She states she does not want to be admitted to the hospital at this time as this is a chronic issue for her. She would like to try to get ahead of her pain and manage at home until she can follow-up with her primary care provider next week. Thus far she has received 3 doses of Dilaudid 0.5 mg IV, Toradol 30 mg IV, Ativan 0.5 mg, and Zofran 4 mg IV. She states that this has helped her symptoms, however she is still about a 7 out of 10 for pain. Discussed with her that in order to discharge home, would like her to be able to keep down fluids and take oral medications. She is in agreement for this. We will give her another dose of Dilaudid 0.5 mg IV. The plan will then be in 1/2-hour that she starts drinking fluids and I will also give her her home dose of oxycodone orally. If she is able to tolerate this, we will discharge her home with instructions to follow-up with primary care. 01/01/20 18:28 Patient's pain is much improved. She would like to go home. Urinalysis is positive for your UTI. We will start her on Cipro. Prescription will be sent to [facility] pharmacy. Recommend that she follow-up with her primary care provider early next week. Return to the ER as needed. Departure - Departure Time of Disposition: 18:28 Disposition: Home, Self-Care 01 Condition: Good Clinical Impression: Pancreatitis, recurrent - Discharge Information Prescriptions: Ciprofloxacin HCl [Cipro] 500 mg PO Q12H #10 tablet Instructions: Chronic Pancreatitis Referrals: Leslie Gutiérrez PA-C [Primary Care Provider] - Forms: ED Department Discharge Additional Instructions: You were seen in the emergency department today for recurrence of your left upper quadrant pain related to your chronic pancreatitis. Blood work, and urinalysis were completed. As expected, your lipase was found to be elevated. Urinalysis was also positive for urinary tract infection. While in the ER, you received 2 L of IV fluids, Zofran, Toradol, 5 doses of Dilaudid, and Percocet. Your pain did improve and you would like to go home and try managing her symptoms at home. A prescription for Cipro has been sent to [facility] pharmacy and pena molina treatment of your urinary tract infection. Take this medication as prescribed. Recommend that you follow-up with your primary care provider early next week. Return to the ER as needed. Sepsis Event Note (ED) - Evaluation Sepsis Screening Result: No Definite Risk - Focused Exam Vital Signs: Vital Signs Temp Pulse Resp BP Pulse Ox 01/01/20 18:15 64 16 116/90 96 01/01/20 15:46 98.4 F 76 16 134/111 H 100 01/01/20 12:44 97.3 F 92 16 125/93 H 99 - My Orders Last 24 Hours: My Active Orders 01/01/20 12:56 Peripheral IV Care [RC] . DIRECTED Sodium Chloride 0.9% [Saline Flush] 10 ml FLUSH ASDIRECTED PRN Peripheral IV Insertion Adult [OM.PC] Stat 01/01/20 13:00 Sodium Chloride 0.9% [Normal Saline] 1,000 ml IV ASDIRECTED 01/01/20 14:30 Dextrose 5%-Lactated Ringers 1,000 ml IV ASDIRECTED 01/01/20 17:40 CULTURE URINE [RM] Stat 01/01/20 18:27 Nitrofurantoin [place]/Macrocryst [Macrobid] 100 mg PO ONETIME ONE - Assessment/Plan Last 24 Hours: My Active Orders 01/01/20 12:56 Peripheral IV Care [RC] . DIRECTED Sodium Chloride 0.9% [Saline Flush] 10 ml FLUSH ASDIRECTED PRN Peripheral IV Insertion Adult [OM.PC] Stat 01/01/20 13:00 Sodium Chloride 0.9% [Normal Saline] 1,000 ml IV ASDIRECTED 01/01/20 14:30 Dextrose 5%-Lactated Ringers 1,000 ml IV ASDIRECTED 01/01/20 17:40 CULTURE URINE [RM] Stat 01/01/20 18:27 Nitrofurantoin [place]/Macrocryst [Macrobid] 100 mg PO ONETIME ONE
[2020-01-01] MEDS ORDERED: oxyCODONE 5 MG Tab PO ONE (17:40)
[2020-01-01] MEDS ORDERED: Nitrofurantoin Monohydrate/Macrocrystalline 100 MG Cap PO ONE (18:27)
[2020-01-01 19:05] VITALS: BP 124/84; PULSE 75
== END 2020-01-01 18:40 | disposition home or self-care (01) ==
LOC: JD.ED 12:04
DX: K86.1 Other chronic pancreatitis (principal); I10 Essential (primary) hypertension; F41.9 Anxiety disorder, unspecified; F32.9 Major depressive disorder, single episode, unspecified; D64.9 Anemia, unspecified; F17.210 Nicotine dependence, cigarettes, uncomplicated; Z90.49 Acquired absence of other specified parts of digestive tract; Z98.890 Other specified postprocedural states; Z88.1 Allergy status to other antibiotic agents; Z88.6 Allergy status to analgesic agent; Z91.048 Other nonmedicinal substance allergy status; Z79.899 Other long term (current) drug therapy
CPT/HCPCS: 36415; 80053; 81001; 83690; 85025; 86140; 87086; 87088; 87186; 96361; 96374; 96375; 96376; 99284; A9270; J1170; J1885; J2060; J2405; J7030; J7121; 99283

== ENCOUNTER 2020-01-02 13:40 | Inpatient (IN) | payer SELFPAY ==
[2020-01-02] MEDS ORDERED: Sodium Chloride 0.9% 10 ML Syringe FLUSH PRN (15:52)
[2020-01-02] MEDS ORDERED: Ondansetron 4 MG/2 ML SDV IVPUSH ONE (15:55)
[2020-01-02] MEDS ORDERED: Ketorolac 30 MG/ML SDV IVPUSH ONE (15:55)
[2020-01-02] MEDS ORDERED: HYDROmorphone 0.5 MG/0.5 ML Syringe IVPUSH ONE ×2 (15:55→18:58)
[2020-01-02] MEDS ORDERED: Dextrose 5%-Lactated Ringers 1,000 ML IV SCH ×2 (16:00→18:00)
[2020-01-02] MEDS ORDERED: cefTRIAXone 2 GM in Sodium Chloride 0.9% 100 ML IV SCH (18:00)
--- NOTE | 2020-01-02 18:03 | EDM.PDOC ---
ED HPI GENERAL MEDICAL PROBLEM - General Chief Complaint: Abdominal Pain Stated Complaint: PANCREATITIS NOT BETTER Time Seen by Provider: 01/02/20 15:51 Source of Information: Reports: Patient History Limitations: Reports: No Limitations - History of Present Illness INITIAL COMMENTS - FREE TEXT/NARRATIVE: Patient is a 29-year-old female presents to the emergency department with complaints of ongoing left upper quadrant abdominal pain for the last 3 days. She has a history of chronic recurrent pancreatitis and states that this feels similar to her past flares. She has not had any fever, chills, or diarrhea, however she has had nausea and vomiting. She was seen in the emergency department yesterday for the same complaint. While here, she received IV fluids, nausea medication, and pain medication. She was also diagnosed with a urinary tract infection and started on Cipro. Her pain was at a point where she decided she wants to go home to try to manage it. She did not want to be admitted at that time. She states that she has not been able to control the pain at home. She is able to keep down fluids, however she vomits up any form of solid, including Jell-O. She has not taken her Cipro at home, because she said that it stated that she is not supposed to take it with magnesium containing products and she uses mag citrate to manage her constipation related to her opioid use. At this time, she feels like she would like to be admitted to the hospital for treatment. Upper Abdomen Pain Score (Numeric/FACES): 10 - Related Data Allergies Allergy/AdvReac Type Severity Reaction Status Date / Time adhesive tape Allergy Severe Itching Verified 01/02/20 15:48 ibuprofen Allergy Severe Hives Verified 01/02/20 15:48 azithromycin [From Zithromax] AdvReac Severe Nausea Verified 01/02/20 15:48 Home Meds: Home Meds Melatonin 5 mg PO BEDTIME PRN 05/04/19 [History] Pantoprazole Sodium [Protonix] 40 mg PO DAILY #30 tablet 05/06/19 [Rx] Ondansetron [Zofran ODT] 4 mg PO TID PRN #8 tab.dis 07/17/19 [Rx] oxyCODONE 5 mg PO Q6H PRN #6 tab 07/20/19 [Rx] traZODone HCl [Trazodone HCl] 50 mg PO BEDTIME 12/04/19 [History] ALPRAZolam [Xanax] 0.5 mg PO Q4H PRN 01/02/20 [History] FLUoxetine HCl [Fluoxetine HCl] 60 mg PO DAILY 01/02/20 [History] Past Medical History HEENT History: Reports: Other (See Below) Other HEENT History: Currently having difficulty hearing in right ear Cardiovascular History: Reports: Hypertension Respiratory History: Reports: Bronchitis, Recurrent Gastrointestinal History: Reports: Pancreatitis Other Gastrointestinal History: 5 years ago, current admission Genitourinary History: Reports: None [employer] History: Reports: 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, Spontaneous Other [employer] History: C section Musculoskeletal History: Reports: Fibromyalgia Neurological History: Reports: None Psychiatric History: Reports: Addiction, Anxiety, Depression, Other (See Below) Endocrine/Metabolic History: Reports: Vitamin D Deficiency Hematologic History: Reports: Anemia Immunologic History: Reports: SLE Oncologic (Cancer) History: Reports: None Other Oncologic History: abnormal pap, never went back for follow up Colposcopy was done at that time Dermatologic History: Reports: None Other Dermatologic History: moles removed on face, gets hives - Infectious Disease History Infectious Disease History: Reports: Chicken Pox - Past Surgical History Head Surgeries/Procedures: Reports: None HEENT Surgical History: Reports: Adenoidectomy, Oral Surgery Cardiovascular Surgical History: Reports: None Respiratory Surgical History: Reports: None GI Surgical History: Reports: Cholecystectomy, ERCP Female Surgical History: Reports: Section, Other (See Below) Musculoskeletal Surgical History: Reports: None Oncologic Surgical History: Reports: None Social & Family History - Family History Family Medical History: Noncontributory Oncologic: Reports: Uterine - Caffeine Use Caffeine Use: Reports: None Other Caffeine Use: rarrely - Living Situation & Occupation Living situation: Reports: (), with Significant Other (Boyfriend), with Family (2 kids) Occupation: Unemployed ED ROS GENERAL - Review of Systems Review Of Systems: See Below Constitutional: Reports: Decreased Appetite. Denies: Fever, Chills, Weakness HEENT: Reports: No Symptoms Respiratory: Reports: No Symptoms Cardiovascular: Reports: No Symptoms Endocrine: Reports: No Symptoms GI/Abdominal: Reports: Abdominal Pain, Nausea, Vomiting. Denies: Diarrhea : Reports: No Symptoms. Denies: Dysuria, Flank Pain, Frequency Musculoskeletal: Reports: No Symptoms Skin: Reports: No Symptoms Neurological: Reports: No Symptoms Psychiatric: Reports: No Symptoms Hematologic/Lymphatic: Reports: No Symptoms Immunologic: Reports: No Symptoms ED EXAM, GI/ABD - Physical Exam Exam: See Below Exam Limited By: No Limitations General Appearance: Alert, WD/WN, Mild Distress Respiratory/Chest: No Respiratory Distress, Lungs Clear, Normal Breath Sounds, No Accessory Muscle Use, Chest Non-Tender Cardiovascular: Normal Peripheral Pulses, Regular Rate, Rhythm, No Edema, No Gallop, No JVD, No Murmur, No Rub GI/Abdominal Exam: Normal Bowel Sounds, Soft, No Organomegaly, No Distention, No Abnormal Bruit, No Mass, Pelvis Stable, Tender (LUQ and Left lateral) Neurological: Alert, Oriented, CN II-XII Intact, Normal Cognition, Normal Gait, Normal Reflexes, No Motor/Sensory Deficits Psychiatric: Normal Affect, Normal Mood Skin Exam: Warm, Dry, Intact, Normal Color, No Rash Course - Vital Signs Last Recorded V/S: Last Vital Signs Temp 97.7 F 01/02/20 19:59 Pulse 98 01/02/20 19:59 Resp 18 01/02/20 19:59 BP 157/108 H 01/02/20 19:59 Pulse Ox 99 01/02/20 19:59 - Orders/Labs/Meds Orders: Active Orders 24 hr Category Date Time Status Peripheral IV Care [RC] Q2HR Care 01/02/20 15:53 Active Dextrose 5%-Lactated Ringers 1,000 ml Med 01/02/20 16:00 Active IV ASDIRECTED Dextrose 5%-Lactated Ringers 1,000 ml Med 01/02/20 18:00 Active IV ASDIRECTED Potassium Chloride [KCl 10 MEQ in Water 100 ML] 10 meq Med 01/02/20 17:45 Active Premix Bag 1 bag IV ASDIRECTED Sodium Chloride 0.9% [Saline Flush] Med 01/02/20 15:52 Active 10 ml FLUSH ASDIRECTED PRN cefTRIAXone [Rocephin] 2 gm Med 01/02/20 18:00 Active Sodium Chloride 0.9% [Normal Saline] 100 ml IV Q24H Peripheral IV Insertion Adult [OM.PC] Stat Oth 01/02/20 15:52 Ordered Medication Orders Dextrose/Lactated Ringer's (Dextrose 5%-Lactated Ringers) 1,000 mls @ 999 mls/hr IV ASDIRECTED [facility] Last Admin: 01/02/20 17:24 Dose: 999 mls/hr Documented by: SANTA Potassium Chloride 10 meq/ (Premix) 100 mls @ 100 mls/hr IV ASDIRECTED [facility] Stop: 01/06/20 18:44 Last Admin: 01/02/20 19:18 Dose: 100 mls/hr Documented by: SANTA Ceftriaxone Sodium 2 gm/ (Sodium Chloride) 100 mls @ 200 mls/hr IV Q24H [facility] Last Admin: 01/02/20 18:38 Dose: 200 mls/hr Documented by: YARED Dextrose/Lactated Ringer's (Dextrose 5%-Lactated Ringers) 1,000 mls @ 125 mls/hr IV ASDIRECTED [facility] Last Admin: 01/02/20 19:12 Dose: 125 mls/hr Documented by: SANTA Morphine Sulfate (Morphine) 2 mg IVPUSH Q1H PRN PRN Reason: Pain Ondansetron HCl (Zofran) 4 mg IVPUSH Q6H PRN PRN Reason: Nausea Sodium Chloride (Saline Flush) 10 ml FLUSH ASDIRECTED PRN PRN Reason: Keep Vein Open Last Admin: 01/02/20 17:25 Dose: 10 ml Documented by: SANTA Labs: Laboratory Tests 01/02/20 01/02/20 01/02/20 Range/Units 16:44 16:44 16:44 WBC 4.82 (3.98-10.04) K/mm3 RBC 3.79 L (3.98-5.22) M/mm3 Hgb 12.9 (11.2-15.7) gm/dl Hct 38.4 (34.1-44.9) % MCV 101.3 H (79.4-94.8) fl MCH 34.0 H (25.6-32.2) pg MCHC 33.6 (32.2-35.5) g/dl RDW Std Deviation 65.8 H (36.4-46.3) fL Plt Count 138 L (182-369) K/mm3 MPV 11.0 (9.4-12.3) fl Neut % (Auto) 62.0 (34.0-71.1) % Lymph % (Auto) 28.0 (19.3-51.7) % Harding % (Auto) 7.9 (4.7-12.5) % Eos % (Auto) 1.7 (0.7-5.8) Baso % (Auto) 0.2 (0.1-1.2) % Neut # (Auto) 2.99 (1.56-6.13) K/mm3 Lymph # (Auto) 1.35 (1.18-3.74) K/mm3 Harding # (Auto) 0.38 H (0.24-0.36) K/mm3 Eos # (Auto) 0.08 (0.04-0.36) K/mm3 Baso # (Auto) 0.01 (0.01-0.08) K/mm3 Sodium 136 (136-145) mEq/L Potassium 3.0 L (3.5-5.1) mEq/L Chloride 99 (98-107) mEq/L Carbon Dioxide 25 (21-32) mEq/L Anion Gap 15.0 (5-15) BUN 5 L (7-18) mg/dL Creatinine 0.5 L (0.55-1.02) mg/dL Est Cr Clr Drug Dosing 139.09 mL/min Estimated GFR (MDRD) > 60 (>60) mL/min BUN/Creatinine Ratio 10.0 L (14-18) Glucose 71 L (74-106) mg/dL Calcium 9.7 (8.5-10.1) mg/dL Magnesium 1.8 (1.8-2.4) mg/dl Total Bilirubin 1.0 (0.2-1.0) mg/dL AST 112 H (15-37) U/L ALT 64 H (14-59) U/L Alkaline Phosphatase 164 H (46-116) U/L C-Reactive Protein 5.7 H* (<1.0) mg/dL Total Protein 8.4 H (6.4-8.2) g/dl Albumin 3.9 (3.4-5.0) g/dl Globulin 4.5 gm/dL Albumin/Globulin Ratio 0.9 L (1-2) Lipase 3169 H (73-393) U/L Meds: Medications Generic Name Dose Route Start Last Admin Trade Name Freq PRN Reason Stop Dose Admin Dextrose/Lactated Ringer's 1,000 mls @ 999 mls/hr 01/02/20 16:00 01/02/20 17:24 Dextrose 5%-Lactated Ringers IV 999 mls/hr ASDIRECTED ALISA Administration Potassium Chloride 10 meq/ 100 mls @ 100 mls/hr 01/02/20 17:45 01/02/20 19:18 Premix IV 01/06/20 18:44 100 mls/hr ASDIRECTED ALISA Administration Ceftriaxone Sodium 2 gm/ 100 mls @ 200 mls/hr 01/02/20 18:00 01/02/20 18:38 Sodium Chloride IV 200 mls/hr Q24H ALISA Administration Dextrose/Lactated Ringer's 1,000 mls @ 125 mls/hr 01/02/20 18:00 01/02/20 19:12 Dextrose 5%-Lactated Ringers IV 125 mls/hr ASDIRECTED ALISA Administration Morphine Sulfate 2 mg 01/02/20 20:08 Morphine IVPUSH Q1H PRN Pain Ondansetron HCl 4 mg 01/02/20 20:08 Zofran IVPUSH Q6H PRN Nausea Sodium Chloride 10 ml 01/02/20 15:52 01/02/20 17:25 Saline Flush FLUSH 10 ml ASDIRECTED PRN Administration Keep Vein Open Discontinued Medications Generic Name Dose Route Start Last Admin Trade Name Freq PRN Reason Stop Dose Admin Hydromorphone HCl 0.5 mg 01/02/20 15:55 01/02/20 17:26 Dilaudid IVPUSH 01/02/20 15:56 0.5 mg ONETIME ONE Administration Hydromorphone HCl 0.5 mg 01/02/20 18:58 01/02/20 19:17 Dilaudid IVPUSH 01/02/20 18:59 0.5 mg ONETIME ONE Administration Ketorolac Tromethamine 30 mg 01/02/20 15:55 01/02/20 17:27 Toradol IVPUSH 01/02/20 15:56 30 mg ONETIME ONE Administration Ondansetron HCl 4 mg 01/02/20 15:55 01/02/20 17:24 Zofran IVPUSH 01/02/20 15:56 4 mg ONETIME ONE Administration - Re-Assessments/Exams Free Text/Narrative Re-Assessment/Exam: 01/02/20 18:03 Hematology was significant for potassium low at 3.0, AST 112, ALT 64, alk phos 164, CRP 5.7, lipase 3169. We have ordered a liter of D5 LR bolus, Dilaudid, Toradol, Zofran, KCl 10 mEq x 5 doses, and Rocephin 2 g IV. Case was discussed with hospitalist on-call, Dr. Gonzalez. He has accepted the patient for admission. Bridge orders have been written and he will be in to see the patient later. Patient has been updated and she is in agreement with this plan. Departure - Departure Time of Disposition: 18:03 Disposition: Admitted As Inpatient 66 Condition: Good Clinical Impression: Pancreatitis, recurrent, Hypokalemia Urinary tract infection Qualifiers: Urinary tract infection type: site unspecified Hematuria presence: without hematuria Qualified Code(s): N39.0 - Urinary tract infection, site not specified - Discharge Information Sepsis Event Note (ED) - Evaluation Sepsis Screening Result: No Definite Risk - Focused Exam Vital Signs: Vital Signs Temp Pulse Resp BP Pulse Ox 01/02/20 15:45 97.3 F 112 H 16 143/110 H 100 - My Orders Last 24 Hours: My Active Orders 01/02/20 15:52 Sodium Chloride 0.9% [Saline Flush] 10 ml FLUSH ASDIRECTED PRN Peripheral IV Insertion Adult [OM.PC] Stat 01/02/20 15:53 Peripheral IV Care [RC] Q2HR 01/02/20 16:00 Dextrose 5%-Lactated Ringers 1,000 ml IV ASDIRECTED 01/02/20 17:45 Potassium Chloride [KCl 10 MEQ in Water 100 ML] 10 meq Premix Bag 1 bag IV ASDIRECTED 01/02/20 18:00 Dextrose 5%-Lactated Ringers 1,000 ml IV ASDIRECTED cefTRIAXone [Rocephin] 2 gm Sodium Chloride 0.9% [Normal Saline] 100 ml IV Q24H - Assessment/Plan Last 24 Hours: My Active Orders 01/02/20 15:52 Sodium Chloride 0.9% [Saline Flush] 10 ml FLUSH ASDIRECTED PRN Peripheral IV Insertion Adult [OM.PC] Stat 01/02/20 15:53 Peripheral IV Care [RC] Q2HR 01/02/20 16:00 Dextrose 5%-Lactated Ringers 1,000 ml IV ASDIRECTED 01/02/20 17:45 Potassium Chloride [KCl 10 MEQ in Water 100 ML] 10 meq Premix Bag 1 bag IV ASDIRECTED 01/02/20 18:00 Dextrose 5%-Lactated Ringers 1,000 ml IV ASDIRECTED cefTRIAXone [Rocephin] 2 gm Sodium Chloride 0.9% [Normal Saline] 100 ml IV Q24H
[2020-01-02] MEDS: Potassium Chloride 10 MEQ in Premix Bag 1 BAG IV SCH (19:18)
[2020-01-02] MEDS ORDERED: Ondansetron 4 MG/2 ML SDV IVPUSH PRN (20:08)
[2020-01-02] MEDS: Morphine 2 MG/ML SYRINGE IVPUSH PRN ×3 (20:35→22:34)
[2020-01-02] MEDS ORDERED: Ondansetron 4 MG/2 ML SDV IV PRN (21:17)
[2020-01-02] MEDS ORDERED: LORazepam 2 MG/ML SDV IV ONE (21:17)
--- NOTE | 2020-01-02 21:51 | PCM.HP.2 ---
H&P History of Present Illness - General Date of Service: 01/02/20 Admit Problem/Dx: Admission Diagnosis/Problem Admission Diagnosis/Problem Pancreatitis Source of Information: Patient, EMS Notes Reviewed, Provider History Limitations: Reports: No Limitations, Other (pain causing severe distress) - History of Present Illness Onset of Symptoms: Reports: Gradual Duration of Symptoms: Reports: Day(s): (3), Getting Worse Location: Reports: Abdomen Front/Back Full Body Diagram: 1 - diffuse abd pain wiorse with pressure Quality: Reports: Sharp, Other (constant increased with movement but not releived by anything today (dilaudid x 20 minutes)) Severity: Severe Improves with: Reports: None Worsens with: Reports: Eating, Movement Associated Symptoms: Reports: No Other Symptoms Other HPI/Comments: triggerred by periods several times in past and this time she thinks. Upper Abdomen Pain Score (Numeric/FACES): 10 - Related Data Allergies/Adverse Reactions: Allergies Allergy/AdvReac Type Severity Reaction Status Date / Time adhesive tape Allergy Severe Itching Verified 01/02/20 15:48 ibuprofen Allergy Severe Hives Verified 01/02/20 15:48 azithromycin [From Zithromax] AdvReac Severe Nausea Verified 01/02/20 15:48 Home Medications: Home Meds Melatonin 5 mg PO BEDTIME PRN 05/04/19 [History] Pantoprazole Sodium [Protonix] 40 mg PO DAILY #30 tablet 05/06/19 [Rx] Ondansetron [Zofran ODT] 4 mg PO TID PRN #8 tab.dis 07/17/19 [Rx] oxyCODONE 5 mg PO Q6H PRN #6 tab 07/20/19 [Rx] traZODone HCl [Trazodone HCl] 50 mg PO BEDTIME 12/04/19 [History] ALPRAZolam [Xanax] 0.5 mg PO Q4H PRN 01/02/20 [History] FLUoxetine HCl [Fluoxetine HCl] 60 mg PO DAILY 01/02/20 [History] Past Medical History HEENT History: Reports: Other (See Below) Other HEENT History: Currently having difficulty hearing in right ear Cardiovascular History: Reports: Hypertension Respiratory History: Reports: Bronchitis, Recurrent Gastrointestinal History: Reports: Pancreatitis, Other (See Below) (multiple smaller flairs and sees g.[place]. in [place] / no hx of hepatitis/ necrotic pancreatitis or hypocalcemia / hx of prev. etoh x one year and quit drinking 6 months ago / no drug use but did in past .) Other Gastrointestinal History: 5 years ago, current admission Genitourinary History: Reports: None WELDING TESTER History: Reports: 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, Spontaneous Other OB/BYN History: C section Musculoskeletal History: Reports: Fibromyalgia Neurological History: Reports: None Psychiatric History: Reports: Addiction, Anxiety, Depression, Other (See Below) Endocrine/Metabolic History: Reports: Vitamin D Deficiency Hematologic History: Reports: Anemia Immunologic History: Reports: SLE Oncologic (Cancer) History: Reports: None Other Oncologic History: abnormal pap, never went back for follow up Colposcopy was done at that time Dermatologic History: Reports: None Other Dermatologic History: moles removed on face, gets hives - Infectious Disease History Infectious Disease History: Reports: Chicken Pox - Past Surgical History Head Surgeries/Procedures: Reports: None HEENT Surgical History: Reports: Adenoidectomy, Oral Surgery Cardiovascular Surgical History: Reports: None Respiratory Surgical History: Reports: None GI Surgical History: Reports: Cholecystectomy, ERCP Female Surgical History: Reports: Section, Other (See Below) Musculoskeletal Surgical History: Reports: None Oncologic Surgical History: Reports: None Social & Family History - Family History Family Medical History: Noncontributory Oncologic: Reports: Uterine - Tobacco Use Smoking Status *Q: Current Every Day Smoker Years of Tobacco use: 10 Packs/Tins Daily: 0.5 Used Tobacco, but Quit: No Second Hand Smoke Exposure: Yes - Caffeine Use Caffeine Use: Reports: None Other Caffeine Use: rarrely - Recreational Drug Use Recreational Drug Use: No Recreational Drug Use Frequency: Not Used In Over 6 Months - Living Situation & Occupation Living situation: Reports: (), with Significant Other (Boyfriend), with Family (2 kids) Occupation: Unemployed H&P Review of Systems - Review of Systems: Review Of Systems: See Below General: Reports: No Symptoms HEENT: Reports: No Symptoms Pulmonary: Reports: No Symptoms Cardiovascular: Reports: No Symptoms Gastrointestinal: Reports: Abdominal Pain, Constipation, Nausea, Vomiting. Denies: Black Stool, Bloody Stool, Diarrhea Genitourinary: Reports: No Symptoms Musculoskeletal: Reports: No Symptoms Skin: Reports: No Symptoms Psychiatric: Reports: Mood Lability, Anxiety Neurological: Reports: No Symptoms Hematologic/Lymphatic: Reports: No Symptoms Immunologic: Reports: No Symptoms Exam - Exam Exam: See Below - Vital Signs Vital Signs: Last Vital Signs Temp 36.5 C 01/02/20 19:59 Pulse 98 01/02/20 19:59 Resp 18 01/02/20 19:59 BP 157/108 H 01/02/20 19:59 Pulse Ox 99 01/02/20 19:59 Weight: 52.163 kg - Exam General: Alert, Oriented, 4 HEENT: PERRLA, Hearing Intact, Mucosa Moist & [place], Nares Patent, Normal Nasal Septum, Posterior Pharynx Clear, Conjunctiva Clear, EOMI, EACs Clear, TMs Clear Neck: Supple, Trachea Midline, 2 Lungs: Clear to Auscultation, Normal Respiratory Effort Cardiovascular: Regular Rate, Regular Rhythm GI/Abdominal Exam: Normal Bowel Sounds, Soft, No Organomegaly, No Distention, No Abnormal Bruit, No Mass, Pelvis Stable, Guarding, Tender. No: Non-Tender, Rigid, Rebound, Hepatomegaly, Splenomegaly (Female) Exam: Deferred. No: Normal External Exam, Normal Speculum Exam, Normal Bimanual Exam Rectal (Female) Exam: Deferred. No: Normal Exam, Normal Rectal Tone Back Exam: Normal Inspection, Full Range of Motion, NT Extremities: Normal Inspection, Normal Range of Motion, Non-Tender, No Pedal Edema, Normal Capillary Refill Peripheral Pulses: 2+: Carotid (L), Carotid (R), Brachial (L) Skin: Warm, Dry, Intact, Other Neurological: Cranial Nerves Intact, Reflexes Equal Bilateral Neuro Extensive - Mental Status: Alert, Oriented x3, Normal Mood/Affect, Normal Cognition Neuro Extensive - Motor, Sensory, Reflexes: CN II-XII Intact, Normal Gait, No rmal Reflexes Psychiatric: Alert, Normal Affect, Labile Mood, Anxious. No: Normal Mood (patient in severe pain / crying ) - Patient Data Lab Results Last 24 hrs: Laboratory Results - last 24 hr 01/02/20 01/02/20 01/02/20 Range/Units 16:44 16:44 16:44 WBC 4.82 (3.98-10.04) K/mm3 RBC 3.79 L (3.98-5.22) M/mm3 Hgb 12.9 (11.2-15.7) gm/dl Hct 38.4 (34.1-44.9) % MCV 101.3 H (79.4-94.8) fl MCH 34.0 H (25.6-32.2) pg MCHC 33.6 (32.2-35.5) g/dl RDW Std Deviation 65.8 H (36.4-46.3) fL Plt Count 138 L (182-369) K/mm3 MPV 11.0 (9.4-12.3) fl Neut % (Auto) 62.0 (34.0-71.1) % Lymph % (Auto) 28.0 (19.3-51.7) % [place] % (Auto) 7.9 (4.7-12.5) % Eos % (Auto) 1.7 (0.7-5.8) Baso % (Auto) 0.2 (0.1-1.2) % Neut # (Auto) 2.99 (1.56-6.13) K/mm3 Lymph # (Auto) 1.35 (1.18-3.74) K/mm3 [place] # (Auto) 0.38 H (0.24-0.36) K/mm3 Eos # (Auto) 0.08 (0.04-0.36) K/mm3 Baso # (Auto) 0.01 (0.01-0.08) K/mm3 Sodium 136 (136-145) mEq/L Potassium 3.0 L (3.5-5.1) mEq/L Chloride 99 (98-107) mEq/L Carbon Dioxide 25 (21-32) mEq/L Anion Gap 15.0 (5-15) BUN 5 L (7-18) mg/dL Creatinine 0.5 L (0.55-1.02) mg/dL Est Cr Clr Drug Dosing 139.09 mL/min Estimated GFR (MDRD) > 60 (>60) mL/min BUN/Creatinine Ratio 10.0 L (14-18) Glucose 71 L (74-106) mg/dL Calcium 9.7 (8.5-10.1) mg/dL Magnesium 1.8 (1.8-2.4) mg/dl Total Bilirubin 1.0 (0.2-1.0) mg/dL AST 112 H (15-37) U/L ALT 64 H (14-59) U/L Alkaline Phosphatase 164 H (46-116) U/L C-Reactive Protein 5.7 H* (<1.0) mg/dL Total Protein 8.4 H (6.4-8.2) g/dl Albumin 3.9 (3.4-5.0) g/dl Globulin 4.5 gm/dL Albumin/Globulin Ratio 0.9 L (1-2) Lipase 3169 H (73-393) U/L COVID-19 (ALEXANDRA) (NEGATIVE) 01/02/20 Range/Units 19:14 WBC (3.98-10.04) K/mm3 RBC (3.98-5.22) M/mm3 Hgb (11.2-15.7) gm/dl Hct (34.1-44.9) % MCV (79.4-94.8) fl MCH (25.6-32.2) pg MCHC (32.2-35.5) g/dl RDW Std Deviation (36.4-46.3) fL Plt Count (182-369) K/mm3 MPV (9.4-12.3) fl Neut % (Auto) (34.0-71.1) % Lymph % (Auto) (19.3-51.7) % [place] % (Auto) (4.7-12.5) % Eos % (Auto) (0.7-5.8) Baso % (Auto) (0.1-1.2) % Neut # (Auto) (1.56-6.13) K/mm3 Lymph # (Auto) (1.18-3.74) K/mm3 [place] # (Auto) (0.24-0.36) K/mm3 Eos # (Auto) (0.04-0.36) K/mm3 Baso # (Auto) (0.01-0.08) K/mm3 Sodium (136-145) mEq/L Potassium (3.5-5.1) mEq/L Chloride (98-107) mEq/L Carbon Dioxide (21-32) mEq/L Anion Gap (5-15) BUN (7-18) mg/dL Creatinine (0.55-1.02) mg/dL Est Cr Clr Drug Dosing mL/min Estimated GFR (MDRD) (>60) mL/min BUN/Creatinine Ratio (14-18) Glucose (74-106) mg/dL Calcium (8.5-10.1) mg/dL Magnesium (1.8-2.4) mg/dl Total Bilirubin (0.2-1.0) mg/dL AST (15-37) U/L ALT (14-59) U/L Alkaline Phosphatase (46-116) U/L C-Reactive Protein (<1.0) mg/dL Total Protein (6.4-8.2) g/dl Albumin (3.4-5.0) g/dl Globulin gm/dL Albumin/Globulin Ratio (1-2) Lipase (73-393) U/L COVID-19 (ALEXANDRA) Negative (NEGATIVE) Result Diagrams: 01/02/20 16:44 01/02/20 16:44 Sepsis Event Note - Evaluation Sepsis Screening Result: No Definite Risk - Focused Exam Vital Signs: Vital Signs Temp Temp Pulse Pulse Resp BP BP 01/02/20 19:59 36.5 C 98 18 157/108 H 01/02/20 15:45 36.3 C 112 H 16 143/110 H Pulse Ox 01/02/20 19:59 99 01/02/20 15:45 100 Date Exam was Performed: 01/02/20 Time Exam was Performed: 21:45 - Problem List (1) Hypokalemia SNOMED Code(s): 55233893 ICD Code: E87.6 - HYPOKALEMIA Status: Acute Priority: Medium Current Visit: Yes Onset Date: ~01/02/20 (2) Urinary tract infection SNOMED Code(s): 84716796 ICD Code: N39.0 - URINARY TRACT INFECTION, SITE NOT SPECIFIED Status: Acute Priority: Medium Current Visit: Yes Onset Date: ~01/02/20 Qualifiers: Urinary tract infection type: site unspecified Hematuria presence: without hematuria Qualified Code(s): N39.0 - Urinary tract infection, site not specified (3) Pancreatitis, recurrent SNOMED Code(s): 063330420 ICD Code: K86.1 - OTHER CHRONIC PANCREATITIS Status: Chronic Priority: High Current Visit: Yes Onset Date: ~12/31/19 (4) Anxiety SNOMED Code(s): 01753121 ICD Code: F41.9 - ANXIETY DISORDER, UNSPECIFIED Status: Chronic Priority: Medium Current Visit: No Onset Date: ~01/02/20 (5) Depression SNOMED Code(s): 29314412 ICD Code: F32.9 - MAJOR DEPRESSIVE DISORDER, SINGLE EPISODE, UNSPECIFIED Status: Chronic Priority: Medium Current Visit: No Qualifiers: Depression Type: unspecified Qualified Code(s): F32.9 - Major depressive disorder, single episode, unspecified (6) ETOH abuse SNOMED Code(s): 37271718 ICD Code: F10.10 - ALCOHOL ABUSE, UNCOMPLICATED Status: Chronic Priority: High Current Visit: No Onset Date: ~01/02/20 Problem Details: no etoh intake x 6 months by report sec to chronic pancreatitis episodes Problem List Initiated/Reviewed/Updated: Yes Orders Last 24hrs: Active Orders 24 hr Category Date Time Status Patient Status [ADT] Routine ADT 01/02/20 18:04 Active Patient Status [ADT] Routine ADT 01/02/20 21:18 Ordered Activity as Tolerated [RC] .Routine Care 01/02/20 20:08 Active Antiembolic Devices [RC] PER UNIT ROUTINE Care 01/02/20 21:26 Ordered Intake and Output [RC] QSHIFT Care 01/02/20 21:21 Ordered Oxygen Therapy [RC] PRN Care 01/02/20 21:18 Ordered Peripheral IV Care [RC] Q2HR Care 01/02/20 15:53 Active VTE/DVT Education [RC] PER UNIT ROUTINE Care 01/02/20 21:18 Ordered Vital Signs [RC] Q4H Care 01/02/20 21:18 Ordered Consult to Case Management/Senior Electrical Designer [CONS] Cons 01/02/20 21:17 Ordered Routine Respiratory Care Assess and Treatment [CONS] Routine Cons 01/02/20 21:17 Ordered Nothing Per Oral Diet [DIET] Diet 01/03/20 Breakfast Active Nothing per Oral Now Diet [DIET] Diet 01/03/20 Breakfast Ordered Abdomen Comp [US] Urgent Exams 01/03/20 21:39 Ordered Abdomen Pelvis wo Cont [CT] Urgent Exams 01/03/20 21:40 Ordered AMYLASE [CHEM] DAILY Lab 01/03/20 21:30 Ordered AMYLASE [CHEM] DAILY Lab 01/04/20 21:30 Ordered AMYLASE [CHEM] DAILY Lab 01/05/20 21:30 Ordered AMYLASE [CHEM] DAILY Lab 01/06/20 21:30 Ordered AMYLASE [CHEM] DAILY Lab 01/07/20 21:30 Ordered C-REACTIVE PROTEIN [CHEM] DAILY Lab 01/03/20 21:30 Ordered C-REACTIVE PROTEIN [CHEM] DAILY Lab 01/04/20 21:30 Ordered C-REACTIVE PROTEIN [CHEM] DAILY Lab 01/05/20 21:30 Ordered CBC WITH AUTO DIFF [HEME] DAILY Lab 01/03/20 21:30 Ordered CBC WITH AUTO DIFF [HEME] DAILY Lab 01/04/20 21:30 Ordered COMPREHENSIVE METABOLIC PN,CMP [CHEM] DAILY Lab 01/03/20 21:30 Ordered COMPREHENSIVE METABOLIC PN,CMP [CHEM] DAILY Lab 01/04/20 21:30 Ordered LIPASE [CHEM] DAILY Lab 01/03/20 21:30 Ordered LIPASE [CHEM] DAILY Lab 01/04/20 21:30 Ordered LIPASE [CHEM] DAILY Lab 01/05/20 21:30 Ordered LIPASE [CHEM] DAILY Lab 01/06/20 21:30 Ordered LIPASE [CHEM] DAILY Lab 01/07/20 21:30 Ordered SEDIMENTATION RATE AUTO [HEME] DAILY Lab 01/03/20 21:30 Ordered SEDIMENTATION RATE AUTO [HEME] DAILY Lab 01/04/20 21:30 Ordered URINALYSIS W/MICROSCOPIC [UA W/MICROSCOPIC] [URIN] Lab 01/02/20 21:37 Ordered Routine Dextrose 5%-Lactated Ringers 1,000 ml Med 01/02/20 16:00 Active IV ASDIRECTED Dextrose 5%-Lactated Ringers 1,000 ml Med 01/02/20 18:00 Active IV ASDIRECTED Enoxaparin [Lovenox] Med 01/02/20 21:30 Ordered 30 mg SUBCUT DAILY Ketorolac [Toradol] Med 01/02/20 21:17 Ordered 30 mg IV Q6H PRN LORazepam [Ativan] Med 01/02/20 21:17 Once 1 mg IV ONETIME ONE Lactated Ringers @ 125 MLS/HR(1000ml) Med 01/02/20 21:30 Ordered Lactated Ringers [Ringers, Lactated] 1,000 ml IV ASDIRECTED Morphine Med 01/02/20 20:08 Active 2 mg IVPUSH Q1H PRN Nicotine [Habitrol] Med 01/02/20 21:30 Ordered 7 mg TRDERM DAILY Ondansetron [Zofran] Med 01/02/20 21:17 Ordered 4 mg IV Q4H PRN Ondansetron [Zofran] Med 01/02/20 20:08 Active 4 mg IVPUSH Q6H PRN Pantoprazole [ProTONIX IV] Med 01/02/20 21:45 Ordered 40 mg IVPUSH Q12H Potassium Chloride [KCl 10 MEQ in Water 100 ML] 10 meq Med 01/02/20 17:45 Active Premix Bag 1 bag IV ASDIRECTED Sodium Chloride 0.9% [Saline Flush] Med 01/02/20 15:52 Active 10 ml FLUSH ASDIRECTED PRN cefTRIAXone [Rocephin] 1 gm Med 01/03/20 08:45 Ordered Sodium Chloride 0.9% [Normal Saline] 100 ml IV Q24H cefTRIAXone [Rocephin] 2 gm Med 01/02/20 18:00 Active Sodium Chloride 0.9% [Normal Saline] 100 ml IV Q24H Antiembolic Hose [OM.PC] Per Unit Routine Oth 01/02/20 21:22 Ordered Peripheral IV Insertion Adult [OM.PC] Stat Oth 01/02/20 15:52 Ordered Resuscitation Status Routine Resus Stat 01/02/20 20:09 Ordered Medication Orders Enoxaparin Sodium (Lovenox) 30 mg SUBCUT DAILY [facility] Dextrose/Lactated Ringer's (Dextrose 5%-Lactated Ringers) 1,000 mls @ 999 mls/hr IV ASDIRECTED [facility] Last Admin: 01/02/20 17:24 Dose: 999 mls/hr Documented by: SANTA Potassium Chloride 10 meq/ (Premix) 100 mls @ 100 mls/hr IV ASDIRECTED ALISA Stop: 01/06/20 18:44 Last Admin: 01/02/20 19:18 Dose: 100 mls/hr Documented by: SANTA Ceftriaxone Sodium 2 gm/ (Sodium Chloride) 100 mls @ 200 mls/hr IV Q24H [facility] Last Admin: 01/02/20 18:38 Dose: 200 mls/hr Documented by: YARED Dextrose/Lactated Ringer's (Dextrose 5%-Lactated Ringers) 1,000 mls @ 125 mls/hr IV ASDIRECTED ALISA Last Admin: 01/02/20 19:12 Dose: 125 mls/hr Documented by: SANTA Lactated Ringer's (Ringers, Lactated) 1,000 mls @ 125 mls/hr IV ASDIRECTED [facility] Ceftriaxone Sodium 1 gm/ (Sodium Chloride) 100 mls @ 200 mls/hr IV Q24H [facility] Ketorolac Tromethamine (Toradol) 30 mg IV Q6H PRN PRN Reason: Pain (moderate 4-6) Lorazepam (Ativan) 1 mg IV ONETIME ONE Stop: 01/02/20 21:18 Morphine Sulfate (Morphine) 2 mg IVPUSH Q1H PRN PRN Reason: Pain Last Admin: 01/02/20 21:24 Dose: 2 mg Documented by: Admin: 01/02/20 20:35 Dose: 2 mg Documented by: ASIM Nicotine (Habitrol) 7 mg TRDERM DAILY [facility] Ondansetron HCl (Zofran) 4 mg IVPUSH Q6H PRN PRN Reason: Nausea Ondansetron HCl (Zofran) 4 mg IV Q4H PRN PRN Reason: Nausea/Vomiting Pantoprazole Sodium (Protonix Iv) 40 mg IVPUSH Q12H [facility] Sodium Chloride (Saline Flush) 10 ml FLUSH ASDIRECTED PRN PRN Reason: Keep Vein Open Last Admin: 01/02/20 17:25 Dose: 10 ml Documented by: SANTA Assessment/Plan Comment:: pancreatitis pain control and ct scan of abd / u.s to rule out pseudocyst formation. 2/ anxiety/ depression hold meds for now severe pancreatitis may preclude restarting 3/ hypokalemia riders x 5 and recheck in am chronic recurrent pancreatitis / etiology apparently unknown but hx very vague . states not alcohol related - Mortality Measure Prognosis:: Good
[2020-01-02] MEDS: Pantoprazole 40 MG Vial IVPUSH SCH (22:41)
[2020-01-02] MEDS: Enoxaparin 40 MG/0.4 ML Syringe SUBCUT SCH (22:46)
[2020-01-02] MEDS: Nicotine 7 MG/24 Hr Patch TRDERM SCH (22:46)
[2020-01-03] MEDS: Lactated Ringers 1,000 ML IV SCH ×2 (00:26→10:35)
[2020-01-03] MEDS: Potassium Chloride 10 MEQ in Premix Bag 1 BAG IV SCH ×8 (00:27→17:45)
[2020-01-03] MEDS: Ketorolac 30 MG/ML SDV IVPUSH PRN ×4 (02:05→20:18)
[2020-01-03] MEDS: Morphine 2 MG/ML SYRINGE IVPUSH PRN ×10 (02:05→21:54)
[2020-01-03] MEDS: Pantoprazole 40 MG Vial IVPUSH SCH ×3 (10:27→21:27)
[2020-01-03] MEDS: Nicotine 7 MG/24 Hr Patch TRDERM SCH ×3 (10:27→21:29)
--- NOTE | 2020-01-03 11:18 | PCM.PN ---
- General Info Date of Service: 01/03/20 Admission Dx/Problem (Free Text): Admission Diagnosis/Problem Admission Diagnosis/Problem Pancreatitis Functional Status: Reports: Pain Controlled, Ambulating, Urinating. Denies: Tolerating Diet (NPO), New Symptoms - Review of Systems General: Reports: Weakness, Fatigue. Denies: Fever, Malaise HEENT: Reports: No Symptoms. Denies: Headaches, Sore Throat Pulmonary: Reports: No Symptoms. Denies: Shortness of Breath, Cough, Sputum, Wheezing Cardiovascular: Reports: Chest Pain. Denies: Palpitations, Dyspnea on Exertion, Edema Gastrointestinal: Reports: Abdominal Pain, Nausea, Vomiting. Denies: Constipation, Diarrhea Genitourinary: Reports: No Symptoms. Denies: Pain Musculoskeletal: Reports: No Symptoms Skin: Reports: No Symptoms. Denies: Cyanosis Neurological: Reports: No Symptoms. Denies: Confusion, Difficulty Walking, Gait Disturbance Psychiatric: Reports: No Symptoms - Patient Data Vitals - Most Recent: Last Vital Signs Temp 97.5 F 01/03/20 07:46 Pulse 84 01/03/20 08:35 Resp 12 01/03/20 08:35 BP 151/101 H 01/03/20 08:35 Pulse Ox 96 01/03/20 08:35 Weight - Most Recent: 115 lb 3.2 oz I&O - Last 24 Hours: Intake & Output 01/02/20 01/03/20 01/03/20 22:59 06:59 14:59 Intake Total 1898 Output Total 500 Balance 1398 Lab Results Last 24 Hours: Laboratory Results - last 24 hr 01/02/20 01/02/20 01/02/20 Range/Units 08:50 16:44 16:44 WBC 4.82 (3.98-10.04) K/mm3 RBC 3.79 L (3.98-5.22) M/mm3 Hgb 12.9 (11.2-15.7) gm/dl Hct 38.4 (34.1-44.9) % MCV 101.3 H (79.4-94.8) fl MCH 34.0 H (25.6-32.2) pg MCHC 33.6 (32.2-35.5) g/dl RDW Std Deviation 65.8 H (36.4-46.3) fL Plt Count 138 L (182-369) K/mm3 MPV 11.0 (9.4-12.3) fl Neut % (Auto) 62.0 (34.0-71.1) % Lymph % (Auto) 28.0 (19.3-51.7) % [place] % (Auto) 7.9 (4.7-12.5) % Eos % (Auto) 1.7 (0.7-5.8) Baso % (Auto) 0.2 (0.1-1.2) % Neut # (Auto) 2.99 (1.56-6.13) K/mm3 Lymph # (Auto) 1.35 (1.18-3.74) K/mm3 [place] # (Auto) 0.38 H (0.24-0.36) K/mm3 Eos # (Auto) 0.08 (0.04-0.36) K/mm3 Baso # (Auto) 0.01 (0.01-0.08) K/mm3 ESR (0-20) mm/hr Sodium 136 (136-145) mEq/L Potassium 3.0 L (3.5-5.1) mEq/L Chloride 99 (98-107) mEq/L Carbon Dioxide 25 (21-32) mEq/L Anion Gap 15.0 (5-15) BUN 5 L (7-18) mg/dL Creatinine 0.5 L (0.55-1.02) mg/dL Est Cr Clr Drug Dosing 139.09 mL/min Estimated GFR (MDRD) > 60 (>60) mL/min BUN/Creatinine Ratio 10.0 L (14-18) Glucose 71 L (74-106) mg/dL Calcium 9.7 (8.5-10.1) mg/dL Magnesium (1.8-2.4) mg/dl Total Bilirubin 1.0 (0.2-1.0) mg/dL AST 112 H (15-37) U/L ALT 64 H (14-59) U/L Alkaline Phosphatase 164 H (46-116) U/L Troponin I (0.00-0.056) ng/mL C-Reactive Protein 5.7 H* (<1.0) mg/dL Total Protein 8.4 H (6.4-8.2) g/dl Albumin 3.9 (3.4-5.0) g/dl Globulin 4.5 gm/dL Albumin/Globulin Ratio 0.9 L (1-2) Amylase (25-115) U/L Lipase 3169 H (73-393) U/L Urine Color Yellow (Yellow) Urine Appearance Clear (Clear) Urine pH 8.0 (5.0-8.0) Ur Specific Olga 1.020 (1.005-1.030) Urine Protein Negative (Negative) Urine Glucose (UA) Negative (Negative) Urine Ketones 2+ H (Negative) Urine Occult Blood 3+ H (Negative) Urine Nitrite Negative (Negative) Urine Bilirubin Negative (Negative) Urine Urobilinogen 0.2 (0.2-1.0) Ur Leukocyte Esterase Negative (Negative) Urine RBC 10-20 H (0-5) /hpf Urine WBC 0-5 (0-5) /hpf Ur Squamous Epith Cells 0-5 (0-5) /hpf Urine Bacteria Moderate H (FEW) /hpf Urine Mucus Few (FEW) /hpf Urine Opiates Screen (TZBFAH=571) Ur Buprenorphine Scrn (CUTOFF=10) Ur Oxycodone Screen (QNO8WB=595) Urine Methadone Screen (JWNMNJ=264) Ur Propoxyphene Screen (NTNXOH=758) Ur Barbiturates Screen (SWVAHJ=860) Ur Tricyclics Screen (VOMHFP=052) Ur Phencyclidine Scrn (CUTOFF=25) Ur Amphetamine Screen (CSMFQG=431) U Methamphetamines Scrn (NYMAZT=895) U Benzodiazepines Scrn (ROOJHT=397) U Cocaine Metab Screen (BCHEHR=372) U Marijuana (THC) Screen (CUTOFF=50) COVID-19 (ALEXANDRA) (NEGATIVE) 01/02/20 01/02/20 01/03/20 Range/Units 16:44 19:14 08:50 WBC (3.98-10.04) K/mm3 RBC (3.98-5.22) M/mm3 Hgb (11.2-15.7) gm/dl Hct (34.1-44.9) % MCV (79.4-94.8) fl MCH (25.6-32.2) pg MCHC (32.2-35.5) g/dl RDW Std Deviation (36.4-46.3) fL Plt Count (182-369) K/mm3 MPV (9.4-12.3) fl Neut % (Auto) (34.0-71.1) % Lymph % (Auto) (19.3-51.7) % [place] % (Auto) (4.7-12.5) % Eos % (Auto) (0.7-5.8) Baso % (Auto) (0.1-1.2) % Neut # (Auto) (1.56-6.13) K/mm3 Lymph # (Auto) (1.18-3.74) K/mm3 [place] # (Auto) (0.24-0.36) K/mm3 Eos # (Auto) (0.04-0.36) K/mm3 Baso # (Auto) (0.01-0.08) K/mm3 ESR (0-20) mm/hr Sodium (136-145) mEq/L Potassium (3.5-5.1) mEq/L Chloride (98-107) mEq/L Carbon Dioxide (21-32) mEq/L Anion Gap (5-15) BUN (7-18) mg/dL Creatinine (0.55-1.02) mg/dL Est Cr Clr Drug Dosing mL/min Estimated GFR (MDRD) (>60) mL/min BUN/Creatinine Ratio (14-18) Glucose (74-106) mg/dL Calcium (8.5-10.1) mg/dL Magnesium 1.8 (1.8-2.4) mg/dl Total Bilirubin (0.2-1.0) mg/dL AST (15-37) U/L ALT (14-59) U/L Alkaline Phosphatase (46-116) U/L Troponin I (0.00-0.056) ng/mL C-Reactive Protein (<1.0) mg/dL Total Protein (6.4-8.2) g/dl Albumin (3.4-5.0) g/dl Globulin gm/dL Albumin/Globulin Ratio (1-2) Amylase (25-115) U/L Lipase (73-393) U/L Urine Color (Yellow) Urine Appearance (Clear) Urine pH (5.0-8.0) Ur Specific Olga (1.005-1.030) Urine Protein (Negative) Urine Glucose (UA) (Negative) Urine Ketones (Negative) Urine Occult Blood (Negative) Urine Nitrite (Negative) Urine Bilirubin (Negative) Urine Urobilinogen (0.2-1.0) Ur Leukocyte Esterase (Negative) Urine RBC (0-5) /hpf Urine WBC (0-5) /hpf Ur Squamous Epith Cells (0-5) /hpf Urine Bacteria (FEW) /hpf Urine Mucus (FEW) /hpf Urine Opiates Screen Presumptive positive H (GQNKIN=972) Ur Buprenorphine Scrn Negative (CUTOFF=10) Ur Oxycodone Screen Negative (OUK8EV=680) Urine Methadone Screen Negative (DCMZDX=897) Ur Propoxyphene Screen Negative (SJETLN=565) Ur Barbiturates Screen Negative (SHCPKW=749) Ur Tricyclics Screen Negative (FYCTEQ=666) Ur Phencyclidine Scrn Negative (CUTOFF=25) Ur Amphetamine Screen Negative (AKJZMI=603) U Methamphetamines Scrn Negative (ETFGLI=292) U Benzodiazepines Scrn Presumptive positive H (QURRIE=700) U Cocaine Metab Screen Negative (MMDAXD=645) U Marijuana (THC) Screen Negative (CUTOFF=50) COVID-19 (ALEXANDRA) Negative (NEGATIVE) 01/03/20 01/03/20 01/03/20 Range/Units 09:07 09:07 09:07 WBC (3.98-10.04) K/mm3 RBC (3.98-5.22) M/mm3 Hgb (11.2-15.7) gm/dl Hct (34.1-44.9) % MCV (79.4-94.8) fl MCH (25.6-32.2) pg MCHC (32.2-35.5) g/dl RDW Std Deviation (36.4-46.3) fL Plt Count (182-369) K/mm3 MPV (9.4-12.3) fl Neut % (Auto) (34.0-71.1) % Lymph % (Auto) (19.3-51.7) % [place] % (Auto) (4.7-12.5) % Eos % (Auto) (0.7-5.8) Baso % (Auto) (0.1-1.2) % Neut # (Auto) (1.56-6.13) K/mm3 Lymph # (Auto) (1.18-3.74) K/mm3 [place] # (Auto) (0.24-0.36) K/mm3 Eos # (Auto) (0.04-0.36) K/mm3 Baso # (Auto) (0.01-0.08) K/mm3 ESR 29 H (0-20) mm/hr Sodium 136 (136-145) mEq/L Potassium 3.3 L (3.5-5.1) mEq/L Chloride 101 (98-107) mEq/L Carbon Dioxide 24 (21-32) mEq/L Anion Gap 14.3 (5-15) BUN 3 L (7-18) mg/dL Creatinine 0.5 L (0.55-1.02) mg/dL Est Cr Clr Drug Dosing 136.95 mL/min Estimated GFR (MDRD) > 60 (>60) mL/min BUN/Creatinine Ratio 6.0 L (14-18) Glucose 90 (74-106) mg/dL Calcium 9.0 (8.5-10.1) mg/dL Magnesium (1.8-2.4) mg/dl Total Bilirubin 0.7 (0.2-1.0) mg/dL AST 82 H (15-37) U/L ALT 52 (14-59) U/L Alkaline Phosphatase 131 H (46-116) U/L Troponin I < 0.017 (0.00-0.056) ng/mL C-Reactive Protein 3.2 H* (<1.0) mg/dL Total Protein 7.0 (6.4-8.2) g/dl Albumin 3.1 L (3.4-5.0) g/dl Globulin 3.9 gm/dL Albumin/Globulin Ratio 0.8 L (1-2) Amylase 195 H (25-115) U/L Lipase 2404 H (73-393) U/L Urine Color (Yellow) Urine Appearance (Clear) Urine pH (5.0-8.0) Ur Specific Olga (1.005-1.030) Urine Protein (Negative) Urine Glucose (UA) (Negative) Urine Ketones (Negative) Urine Occult Blood (Negative) Urine Nitrite (Negative) Urine Bilirubin (Negative) Urine Urobilinogen (0.2-1.0) Ur Leukocyte Esterase (Negative) Urine RBC (0-5) /hpf Urine WBC (0-5) /hpf Ur Squamous Epith Cells (0-5) /hpf Urine Bacteria (FEW) /hpf Urine Mucus (FEW) /hpf Urine Opiates Screen (SFGPYO=802) Ur Buprenorphine Scrn (CUTOFF=10) Ur Oxycodone Screen (SPM4LB=451) Urine Methadone Screen (AACXQI=226) Ur Propoxyphene Screen (BGWJPK=384) Ur Barbiturates Screen (HLVMDX=676) Ur Tricyclics Screen (ULXSIM=387) Ur Phencyclidine Scrn (CUTOFF=25) Ur Amphetamine Screen (JIAWTH=383) U Methamphetamines Scrn (GTVDBR=729) U Benzodiazepines Scrn (HWWMLI=024) U Cocaine Metab Screen (GOUARU=271) U Marijuana (THC) Screen (CUTOFF=50) COVID-19 (ALEXANDRA) (NEGATIVE) Med Orders - Current: Current Medications Enoxaparin Sodium (Lovenox) 40 mg SUBCUT BEDTIME ALISA Last Admin: 01/02/20 22:46 Dose: 40 mg Documented by: Lactated Ringer's (Ringers, Lactated) 1,000 mls @ 125 mls/hr IV ASDIRECTED ALISA Last Admin: 01/03/20 10:35 Dose: 125 mls/hr Documented by: Ceftriaxone Sodium 1 gm/ (Sodium Chloride) 100 mls @ 200 mls/hr IV Q24H ALISA Ketorolac Tromethamine (Toradol) 30 mg IVPUSH Q6H PRN PRN Reason: Pain (moderate 4-6) Stop: 01/07/20 17:00 Last Admin: 01/03/20 08:13 Dose: 30 mg Documented by: Miscellaneous Information (Remove Patch) 1 ea TRDERM Q24H ALISA Morphine Sulfate (Morphine) 2 mg IVPUSH Q1H PRN PRN Reason: Pain Last Admin: 01/03/20 10:27 Dose: 2 mg Documented by: Nicotine (Habitrol) 7 mg TRDERM Q24H ALISA Ondansetron HCl (Zofran) 4 mg IV Q4H PRN PRN Reason: Nausea/Vomiting Pantoprazole Sodium (Protonix Iv) 40 mg IVPUSH Q12H [facility] Last Admin: 01/03/20 10:27 Dose: 40 mg Documented by: Sodium Chloride (Saline Flush) 10 ml FLUSH ASDIRECTED PRN PRN Reason: Keep Vein Open Last Admin: 01/02/20 17:25 Dose: 10 ml Documented by: Discontinued Medications Hydromorphone HCl (Dilaudid) 0.5 mg IVPUSH ONETIME ONE Stop: 01/02/20 15:56 Last Admin: 01/02/20 17:26 Dose: 0.5 mg Documented by: Hydromorphone HCl (Dilaudid) 0.5 mg IVPUSH ONETIME ONE Stop: 01/02/20 18:59 Last Admin: 01/02/20 19:17 Dose: 0.5 mg Documented by: Dextrose/Lactated Ringer's (Dextrose 5%-Lactated Ringers) 1,000 mls @ 999 mls/hr IV ASDIRECTED [facility] Last Admin: 01/02/20 17:24 Dose: 999 mls/hr Documented by: Potassium Chloride 10 meq/ (Premix) 100 mls @ 100 mls/hr IV ASDIRECTED [facility] Stop: 01/06/20 18:44 Last Admin: 01/03/20 04:00 Dose: 100 mls/hr Documented by: Ceftriaxone Sodium 2 gm/ (Sodium Chloride) 100 mls @ 200 mls/hr IV Q24H [facility] Last Admin: 01/02/20 18:38 Dose: 200 mls/hr Documented by: Dextrose/Lactated Ringer's (Dextrose 5%-Lactated Ringers) 1,000 mls @ 125 mls/hr IV ASDIRECTED [facility] Last Admin: 01/02/20 19:12 Dose: 125 mls/hr Documented by: Ketorolac Tromethamine (Toradol) 30 mg IVPUSH ONETIME ONE Stop: 01/02/20 15:56 Last Admin: 01/02/20 17:27 Dose: 30 mg Documented by: Lorazepam (Ativan) 1 mg IV ONETIME ONE Stop: 01/02/20 21:18 Last Admin: 01/02/20 22:34 Dose: 1 mg Documented by: Nicotine (Habitrol) 7 mg TRDERM DAILY [facility] Last Admin: 01/03/20 10:27 Dose: 7 mg Documented by: Ondansetron HCl (Zofran) 4 mg IVPUSH ONETIME ONE Stop: 01/02/20 15:56 Last Admin: 01/02/20 17:24 Dose: 4 mg Documented by: Ondansetron HCl (Zofran) 4 mg IVPUSH Q6H PRN PRN Reason: Nausea - Exam Quality Assessment: DVT Prophylaxis General: Alert, Oriented, Cooperative, No Acute Distress HEENT: Pupils Equal, Pupils Reactive, Mucous Membr. Moist/[place] Neck: Supple, Trachea Midline Lungs: Clear to Auscultation, Normal Respiratory Effort Cardiovascular: Regular Rate, Regular Rhythm GI/Abdominal Exam: Normal Bowel Sounds, Soft, Non-Tender, No Distention, Tender (Female) Exam: Deferred Back Exam: Normal Inspection, Full Range of Motion Extremities: Normal Inspection, Normal Range of Motion, No Pedal Edema, Normal Capillary Refill Skin: Warm, Dry, Intact Neurological: No New Focal Deficit Psy/Mental Status: Alert, Normal Affect, Normal Mood Sepsis Event Note - Evaluation Sepsis Screening Result: No Definite Risk - Focused Exam Vital Signs: Vital Signs Temp Temp Pulse Pulse Resp BP BP 01/03/20 08:35 84 12 151/101 H 01/03/20 07:46 97.5 F 86 20 01/03/20 04:00 98.1 F 84 12 136/86 01/03/20 00:35 98.1 F 86 12 Pulse Ox 01/03/20 08:35 96 01/03/20 07:46 97 01/03/20 04:00 98 01/03/20 00:35 97 Date Exam was Performed: 01/03/20 Time Exam was Performed: 15:48 - Problem List & Annotations (1) Hypokalemia SNOMED Code(s): 95401574 Code(s): E87.6 - HYPOKALEMIA Status: Acute Priority: High Current Visit: Yes Onset Date: ~01/02/20 (2) Urinary tract infection SNOMED Code(s): 72460739 Code(s): N39.0 - URINARY TRACT INFECTION, SITE NOT SPECIFIED Status: Acute Priority: High Current Visit: Yes Onset Date: ~01/02/20 Qualifiers: Urinary tract infection type: site unspecified Hematuria presence: without hematuria Qualified Code(s): N39.0 - Urinary tract infection, site not specified (3) Pancreatitis, recurrent SNOMED Code(s): 200888485 Code(s): K86.1 - OTHER CHRONIC PANCREATITIS Status: Chronic Priority: [facility] Current Visit: Yes Onset Date: ~12/31/19 (4) Abdominal pain SNOMED Code(s): 50308309 Code(s): R10.9 - UNSPECIFIED ABDOMINAL PAIN Status: Acute Priority: High Current Visit: Yes Qualifiers: Abdominal location: right upper quadrant Qualified Code(s): R10.11 - Right upper quadrant pain (5) Anxiety SNOMED Code(s): 45070504 Code(s): F41.9 - ANXIETY DISORDER, UNSPECIFIED Status: Chronic Priority: Medium Current Visit: No Onset Date: ~01/02/20 (6) Depression SNOMED Code(s): 06961028 Code(s): F32.9 - MAJOR DEPRESSIVE DISORDER, SINGLE EPISODE, UNSPECIFIED Status: Chronic Priority: Medium Current Visit: No Qualifiers: Depression Type: unspecified Qualified Code(s): F32.9 - Major depressive disorder, single episode, unspecified (7) ETOH abuse SNOMED Code(s): 54006995 Code(s): F10.10 - ALCOHOL ABUSE, UNCOMPLICATED Status: Chronic Priority: Medium Current Visit: No Onset Date: ~01/02/20 Annotation/Comment:: no etoh intake x 6 months by report sec to chronic pancreatitis episodes (8) Fibromyalgia SNOMED Code(s): 814471693 Status: Chronic Priority: Medium Current Visit: No (9) Hyperlipidemia SNOMED Code(s): 45281978 Code(s): E78.5 - HYPERLIPIDEMIA, UNSPECIFIED Status: Chronic Priority: Medium Current Visit: No Qualifiers: Hyperlipidemia type: unspecified Qualified Code(s): E78.5 - Hyperlipidemia, unspecified (10) Lupus (systemic lupus erythematosus) SNOMED Code(s): 30515193 Code(s): M32.9 - SYSTEMIC LUPUS ERYTHEMATOSUS, UNSPECIFIED Status: Chronic Priority: Medium Current Visit: No Qualifiers: Systemic lupus erythematosus type: unspecified Systemic lupus erythematosus organ involvement: unspecified Qualified Code(s): M32.9 - Systemic lupus erythematosus, unspecified (11) Self-harming behavior SNOMED Code(s): 547044973 Code(s): IDH4977 - Status: Chronic Priority: Medium Current Visit: No (12) Hypertension SNOMED Code(s): 81192515 Code(s): I10 - ESSENTIAL (PRIMARY) HYPERTENSION Status: Acute Current Visit: Yes (13) Vitamin D deficiency SNOMED Code(s): 29717720 Code(s): E55.9 - VITAMIN D DEFICIENCY, UNSPECIFIED Status: Acute Current Visit: Yes (14) Current smoker SNOMED Code(s): 48945619 Code(s): F17.200 - NICOTINE DEPENDENCE, UNSPECIFIED, UNCOMPLICATED Status: Acute Priority: High Current Visit: Yes (15) Insomnia SNOMED Code(s): 170166315 Code(s): G47.00 - INSOMNIA, UNSPECIFIED Status: Chronic Priority: Medium Current Visit: Yes Qualifiers: Insomnia type: unspecified Qualified Code(s): G47.00 - Insomnia, unspecified (16) Chest pain SNOMED Code(s): 95791613 Code(s): R07.9 - CHEST PAIN, UNSPECIFIED Status: Acute Priority: High Current Visit: Yes Qualifiers: Chest pain type: other chest pain Qualified Code(s): R07.89 - Other chest pain; R07.8 - Other chest pain (17) 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 SNOMED Code(s): 666864922 Code(s): N80.9 - ENDOMETRIOSIS, UNSPECIFIED Status: Chronic Priority: High Current Visit: Yes - Problem List Review Problem List Initiated/Reviewed/Updated: Yes - My Orders Last 24 Hours: My Active Orders 01/03/20 08:40 EKG Documentation Completion [RC] ASDIRECTED EKG 12 Lead [EK] Routine 01/04/20 05:11 CBC WITH AUTO DIFF [HEME] AM CMP [COMPREHENSIVE METABOLIC PN,CMP] [CHEM] AM CRP [C-REACTIVE PROTEIN] [CHEM] AM 01/05/20 05:11 CBC WITH AUTO DIFF [HEME] AM CMP [COMPREHENSIVE METABOLIC PN,CMP] [CHEM] AM CRP [C-REACTIVE PROTEIN] [CHEM] AM 01/06/20 05:11 CBC WITH AUTO DIFF [HEME] AM CMP [COMPREHENSIVE METABOLIC PN,CMP] [CHEM] AM CRP [C-REACTIVE PROTEIN] [CHEM] AM 01/07/20 05:11 CBC WITH AUTO DIFF [HEME] AM CMP [COMPREHENSIVE METABOLIC PN,CMP] [CHEM] AM CRP [C-REACTIVE PROTEIN] [CHEM] AM - Plan Plan:: Pancreatitis, recurrent Abdominal pain Hx/o ETOH abuse Hyperlipidemia Hypokalemia 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 Multiple prior admissions for pancreatitis RUQ abdominal pain Reportedly quit drinking 6 months ago History of drug abuse but nothing recently Given IV fluids in ED Potassium 3.0 in ED -->3.3 CT scan of abdomen shows inflammation around pancreas, fatty liver Abdominal US shows fatty liver and previous cholecystectomy Sees GI in [place] Lipase 3169-->2404 Amylase 195 Reports symptoms tend to flair around her menstruation Reports heavy menses currently History of laparoscopy diagnosed endometriosis - Dr. Gallardo preformed surgery; difficult due to adhesions from [employer]-Sections. PLAN - NPO for now - Pain medications as ordered - IV fluids as ordered - PRN antiemetics - Supplement potassium - Lipid panel ordered - May benefit from [employer] follow-up after discharge for endometriosis f/u Urinary tract infection Was seen in ED on 01/01/20 and diagnosed with UTI Urine culture showed castañeda sensitive E. Coli Started on Cipro but unable to keep down due to nausea from above PLAN -IV Rocephin -IV Fluids as above -Switch to PO Abx once able to tolerate fluids Chest pain Reports ongoing chest pain Not reproducible Troponin negative 12-Lead EKG shows sinus rhythm with RSR' in V1, no signs of ischemia PLAN -Monitor Anxiety Depression Insomnia Hx/o Self-harming behavior Longstanding hx/o anxiety and depression On home Xanax, fluoxetine, trazodone, and melatonin PLAN -Home medications as ordered Lupus (systemic lupus erythematosus) Fibromyalgia Hypertension Vitamin D deficiency No concerns currently PLAN - Monitor Current smoker Daily 0.5 ppd smoker PLAN -Nicotine patches -Cessation counseling -Offer patches on discharge DVT prophylaxis: REBA alvarez [facility] Prophylaxis: Protonix PCP: Leslie Gutiérrez PA-C Disposition: Admitted to hospital floor for management of hypokalemia, pancreatitis, and UTI. Discharge after able to tolerate advanced diet.
--- NOTE | 2020-01-03 12:40 | CT ---
CT abdomen and pelvis Technique: Multiple axial sections were obtained from above the dome of the diaphragm inferiorly through the pubic symphysis. Intravenous and oral contrast not utilized. Comparison: Prior CT abdomen and pelvis study of 07/24/19. Findings: Pancreas shows mild surrounding inflammatory change. Fluid is seen within the pelvis. Findings are felt compatible with pancreatitis. Visualized lung bases showed nothing acute. Liver shows diffuse fatty infiltration without focal abnormality. Previous cholecystectomy is noted. Adrenal glands show no nodule. Kidneys show no abnormal calcifications. Aorta shows no aneurysm. No retroperitoneal adenopathy or mesenteric abnormalities are seen. No pelvic mass or adenopathy is identified. Appendix is seen and is normal in size. Bone window settings were reviewed which shows no acute osseous finding. Impression: 1. Mild inflammatory change around the pancreas as well as mild amount of fluid within the pelvis. Findings are felt compatible with pancreatitis. 2. Fatty infiltration within the liver. 3. No additional abnormality is seen. Diagnostic code #3 Study was dictated in MDT
--- NOTE | 2020-01-03 12:40 | US ---
Abdominal ultrasound: Multiple real-time images of the abdomen were obtained. Comparison: Prior abdominal and pelvic CT study of 01/03/20. Findings: Liver is echogenic compatible with fatty infiltration. Previous cholecystectomy is noted. No biliary ductal dilatation is seen. Kidneys show no hydronephrosis or mass. Right kidney length is 11.0 cm and left kidney length is 11.1 cm. Spleen size is normal at 12.0 cm. Aorta shows no aneurysm. Pancreas shows no discrete abnormality. Impression: 1. Fatty infiltration within the liver. 2. No additional abnormality is appreciated on abdominal ultrasound exam. Diagnostic code #2 Study was dictated in MDT
[2020-01-03] MEDS ORDERED: LORazepam 1 MG Tab PO PRN (14:07)
[2020-01-03] MEDS ORDERED: cefTRIAXone 1 GM in Sodium Chloride 0.9% 100 ML IV SCH (18:00)
[2020-01-03] MEDS: Enoxaparin 40 MG/0.4 ML Syringe SUBCUT SCH (20:22)
[2020-01-03] MEDS ORDERED: LORazepam 2 MG/ML SDV IVPUSH PRN (21:34)
[2020-01-04] MEDS: Morphine 2 MG/ML SYRINGE IVPUSH PRN ×4 (01:06→15:19)
[2020-01-04] MEDS: Ketorolac 30 MG/ML SDV IVPUSH PRN ×2 (03:16→14:11)
[2020-01-04] MEDS: Lactated Ringers 1,000 ML IV SCH ×2 (03:19→11:07)
[2020-01-04] MEDS ORDERED: Magnesium Sulfate/Water 2 GM in Premix Bag 1 BAG IV ONE (08:00)
[2020-01-04 08:18] VITALS: BP 146/86; PULSE 86
[2020-01-04] MEDS ORDERED: DULoxetine 30 MG Cap PO SCH (09:00)
[2020-01-04] MEDS ORDERED: ALPRAZolam 0.5 MG Tab PO PRN (09:15)
[2020-01-04] MEDS ORDERED: oxyCODONE 5 MG Tab PO PRN (09:15)
[2020-01-04] MEDS: Pantoprazole 40 MG Vial IVPUSH SCH (09:35)
--- NOTE | 2020-01-04 14:24 | PCM.DCSUM1 ---
Discharge Summary - Hospital Course HPI Initial Comments: Kaycee Grimes is a 29-year-old female, well-known to the service, who presents to ED on 01/02/2020 with left upper quadrant abdominal pain. Has a history of chronic recurring pancreatitis and believes that is what is occurring. Denies any fever, chills, diarrhea, or other infectious symptoms. She does report nausea and vomiting. She was seen in the ED the day prior for similar issues and was given IV fluids, antiemetics, and pain medications. She is at that time diagnosed with a UTI and was started on Cipro. Unfortunately because she was eating she was unable to take her antibiotic. She reports she has not been able to keep anything down. At that time she opted to attempt to manage her symptoms from home but now states she is unable to do that and believes she needs to be admitted. In the ED temp was 97.7. Pulse 98. Respirations 18. Blood pressure 157/108. Pulse ox 98%. Labs are obtained showing no leukocytosis and thrombocytopenia at 138. Sodium is on the low end of normal at 136. Potassium is low at 3.0. Anion gap is on the high end of normal at 15.0. GFR is greater than 60. Magnesium is on the low end of normal at 1.8. Bilirubin is 1.0. CRP is 5.7. Lipase is quite high at 3169. She is given D5LR and a potassium rider. She is also started on 2 g Rocephin daily. She carries a history of hypertension, recurrent bronchitis, chronic pancreatitis, endometriosis, fibromyalgia, anxiety, depression, addiction, vitamin D deficiency, anemia, SLE, abnormal Pap smear. He is a full code. Her PCP is Leslie Forde PA-C. She subsequent admitted to the medical floor for management of her ongoing pancreatitis. Diagnosis: Stroke: No - Discharge Data Discharge Date: 01/04/20 (Admit date: 01/02/20) Discharge Disposition: Home, Self-Care 01 Condition: Good - Referral to Home Health Primary Care Physician: Leslie Gutiérrez PA-C - Discharge Diagnosis/Problem(s) (1) Hypokalemia SNOMED Code(s): 86601962 ICD Code: E87.6 - HYPOKALEMIA Status: Resolved Priority: High Current Visit: Yes Onset Date: ~01/02/20 (2) Urinary tract infection SNOMED Code(s): 36678145 ICD Code: N39.0 - URINARY TRACT INFECTION, SITE NOT SPECIFIED Status: Acute Priority: High Current Visit: Yes Onset Date: ~01/02/20 Qualifiers: Urinary tract infection type: site unspecified Hematuria presence: without hematuria Qualified Code(s): N39.0 - Urinary tract infection, site not specified (3) Pancreatitis, recurrent SNOMED Code(s): 226894706 ICD Code: K86.1 - OTHER CHRONIC PANCREATITIS Status: Chronic Priority: High Current Visit: Yes Onset Date: ~12/31/19 (4) Abdominal pain SNOMED Code(s): 03650258 ICD Code: R10.9 - UNSPECIFIED ABDOMINAL PAIN Status: Acute Priority: High Current Visit: Yes Qualifiers: Abdominal location: right upper quadrant Qualified Code(s): R10.11 - Right upper quadrant pain (5) Anxiety SNOMED Code(s): 21334477 ICD Code: F41.9 - ANXIETY DISORDER, UNSPECIFIED Status: Chronic Priority: Medium Current Visit: No Onset Date: ~01/02/20 (6) Depression SNOMED Code(s): 67785644 ICD Code: F32.9 - MAJOR DEPRESSIVE DISORDER, SINGLE EPISODE, UNSPECIFIED Status: Chronic Priority: Medium Current Visit: No Qualifiers: Depression Type: unspecified Qualified Code(s): F32.9 - Major depressive disorder, single episode, unspecified (7) ETOH abuse SNOMED Code(s): 88595276 ICD Code: F10.10 - ALCOHOL ABUSE, UNCOMPLICATED Status: Chronic Priority: Medium Current Visit: No Onset Date: ~01/02/20 Problem Details: no etoh intake x 6 months by report sec to chronic pancreatitis episodes (8) Fibromyalgia SNOMED Code(s): 621292055 Status: Chronic Priority: Medium Current Visit: No (9) Hyperlipidemia SNOMED Code(s): 38588893 ICD Code: E78.5 - HYPERLIPIDEMIA, UNSPECIFIED Status: Chronic Priority: Medium Current Visit: No Qualifiers: Hyperlipidemia type: unspecified Qualified Code(s): E78.5 - Hyperlipidemia, unspecified (10) Lupus (systemic lupus erythematosus) SNOMED Code(s): 95223016 ICD Code: M32.9 - SYSTEMIC LUPUS ERYTHEMATOSUS, UNSPECIFIED Status: Chronic Priority: Medium Current Visit: No Qualifiers: Systemic lupus erythematosus type: unspecified Systemic lupus erythematosus organ involvement: unspecified Qualified Code(s): M32.9 - Systemic lupus erythematosus, unspecified (11) Self-harming behavior SNOMED Code(s): 675930414 ICD Code: [id number] - Status: Chronic Priority: Medium Current Visit: No (12) Hypertension SNOMED Code(s): 62935747 ICD Code: I10 - ESSENTIAL (PRIMARY) HYPERTENSION Status: Acute Current Visit: Yes (13) Vitamin D deficiency SNOMED Code(s): 67968337 ICD Code: E55.9 - VITAMIN D DEFICIENCY, UNSPECIFIED Status: Acute Current Visit: Yes (14) Current smoker SNOMED Code(s): 75838982 ICD Code: F17.200 - NICOTINE DEPENDENCE, UNSPECIFIED, UNCOMPLICATED Status: Acute Priority: High Current Visit: Yes (15) Insomnia SNOMED Code(s): 155027896 ICD Code: G47.00 - INSOMNIA, UNSPECIFIED Status: Chronic Priority: Medium Current Visit: Yes Qualifiers: Insomnia type: unspecified Qualified Code(s): G47.00 - Insomnia, unspecified (16) Chest pain SNOMED Code(s): 81495799 ICD Code: R07.9 - CHEST PAIN, UNSPECIFIED Status: Resolved Priority: High Current Visit: Yes Qualifiers: Chest pain type: other chest pain Qualified Code(s): R07.89 - Other chest pain; R07.8 - Other chest pain (17) 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 SNOMED Code(s): 408090975 ICD Code: N80.9 - ENDOMETRIOSIS, UNSPECIFIED Status: Chronic Priority: High Current Visit: Yes - Patient Summary/Data Consults: Consultations 01/02/20 21:17 Consult to Case Management/Reconsignment Clerk [CONS] Routine Respiratory Care Assess and Treatment [CONS] Routine Labs Pending at D/C: None Recommended Follow-up Testing/Procedures: Follow-up with PCP within 5-7 days of discharge. Recommend follow-up with [facility] regarding endometriosis diagnosis at next available appointment. Hospital Course: Kaycee mated to the hospital floor for management of her pancreatitis, hypokalemia, and urinary tract infection. She was started on IV Rocephin in the ED and this was continued on the floor. Abdominal CT was obtained which showed a fatty liver and inflammation around the pancreas. Abdominal ultrasound was obtained showing fatty liver, prior cholecystectomy, and no bile duct dilation. She was made n.p.o. and given IV fluids. Diet was advanced to clear liquids without incident. Pain was controlled. She does report a history of endometriosis and does note worsening abdominal pain around her menses. She also reports that she does note more severe pain, generalized in her abdomen, when her menses is more severe. She does report having had laparoscopic procedure performed around [address] Gallardo which demonstrated endometriosis . She reports that he was able to remove some areas, however given her prior surgeries and C-sections she had multiple adhesions. Because of this we recommend she follow-up with [facility] after discharge. She does note that she has as needed oxycodone at home that she has been doing quite well. It is noted that her prescription was filled at the beginning of the month. She reports that she increased her oxycodone consumption once this pain started. We did discuss the importance of following prescribed dosages. Did contact her primary care provider, Katlin Carlton PA-C to discuss this case. She reports the patient has been very good lately that she has not had any major red flags about narcotics abuse. Patient does have a history of addiction and prior alcohol abuse, although patient reports she has not had any alcohol in at least 6 months. Lipid panel was obtained showing an elevated LDL and a decreased HDL but normal triglycerides. Patient reports she has seen GI in the past and it was suggested that she follow-up with GI again in the near future. Primary care provider will assist in scheduling this. She will be discharged home today as she feels like she can manage this from here on out at home. We discussed her diet as she has been through this multiple times. She feels that she can manage with a clear liquid diet at home and advance very slowly as tolerated. She has not vomited while here. She was prescribed oral Cipro the day prior to admission in the ED and reports that although she did fill this prescription she has not taken any of it. We will continue this prescription of 500 mg every 12 hours for 5 more doses, with her first dose being tonight, 01/04/2020. We did discuss her smoking status as she does smoke daily. She reported that she has no interest in stopping and she will likely smoke a cigarette when she gets to her vehicle. We discussed other resources available such as [employer] quits and the [facility] tobacco cessation program, should she change her mind. She was given contact information for both. We also discussed how her primary care provider can be a resource for her. She was advised not to drive while on narcotic pain medication. Recommend she follow-up with her primary care provider within 5 to 7 days of discharge and [facility] as mentioned prior. Appointments were made for both. All home medications were continued. She was discharged today. - Patient Instructions Diet: Clear Liquid Diet Diet, Other: Advance slowly as tollerated Activity: As Tolerated Driving: Do Not Drive (today or while on narcotics ) Showering/Bathing: May Shower Notify Provider of: Fever, Increased Pain, Nausea and/or Vomiting Other/Special Instructions: Follow-up with PCP this week. Follow-up with [facility] as we discussed. Recommend follow-up with GI as we discussed. Continue your ciprofloxacin 500mg every 12 hours with your first dose tonight (01/04/20) take a total of 5 doses, which means your last dose will be the evening of 01/06/20. Continue clear liquid diet and slowly advance as tollerated. Should you notice any worsening of symptoms go backwards on your diet. We discussed your smoking status. You indicated you do not want patches and have no interest in quitting smoking. Should you change your mind you may contact any of the resources provided such as [place] [facility] or the [facility] tobacco quits line. You may also discuss this with your primary care provider. DO NOT drive while on narcotic pain medications like oxycodone. This medication will impaire your ability to drive. Should symptoms become very severe you may contact your primary care provider or return to the ED. - Discharge Plan *PRESCRIPTION DRUG MONITORING PROGRAM REVIEWED*: No *COPY OF PRESCRIPTION DRUG MONITORING REPORT IN PATIENT ZENON: No Prescriptions/Med Rec: oxyCODONE 5 mg PO Q6H PRN #20 tablet PRN Reason: Moderate Pain Home Medications: Home Meds Melatonin 5 mg PO BEDTIME PRN 05/04/19 [History] Pantoprazole Sodium [Protonix] 40 mg PO DAILY #30 tablet. 05/06/19 [Rx] Ondansetron [Zofran ODT] 4 mg PO TID PRN #8 tab.dis 07/17/19 [Rx] traZODone HCl [Trazodone HCl] 50 mg PO BEDTIME 12/04/19 [History] ALPRAZolam [Xanax] 0.5 mg PO Q4H PRN 01/02/20 [History] FLUoxetine HCl [Fluoxetine HCl] 60 mg PO DAILY 01/02/20 [History] Ciprofloxacin [Ciprofloxacin HCl] 500 mg PO Q12H 01/04/20 [History] oxyCODONE 5 mg PO Q6H PRN #20 tablet 01/04/20 [Rx] Oxygen Therapy Mode: Room Air Patient Handouts: Pancreatitis Eating Plan, 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, Urinary Tract Infection, Adult, Potassium Content of Foods, Acute Pancreatitis, Steps to Quit Smoking Forms: ED Department Discharge Referrals: Leslie Gutiérrez PA-C [Primary Care Provider] - 01/10/20 9:30 am Cornelio Gallardo MD [Physician] - 01/11/20 1:00 pm (Arrive at 12:45. Be sure to be on time.) - Discharge Summary/Plan Comment DC Time >30 min.: Yes (45 mins ) - General Info Date of Service: 01/04/20 Admission Dx/Problem (Free Text: Admission Diagnosis/Problem Admission Diagnosis/Problem Pancreatitis Functional Status: Reports: Pain Controlled, Tolerating Diet (clear liquids ), Ambulating, Urinating. Denies: New Symptoms - Review of Systems General: Reports: No Symptoms. Denies: Fever, Weakness, Fatigue, Malaise, Chills HEENT: Reports: No Symptoms. Denies: Headaches, Sore Throat Pulmonary: Reports: No Symptoms. Denies: Shortness of Breath, Pleuritic Chest Pain, Cough, Sputum, Wheezing Cardiovascular: Reports: No Symptoms. Denies: Chest Pain, Palpitations, Dyspnea on Exertion, Orthopnea, Edema Gastrointestinal: Reports: Abdominal Pain (Now more LLQ - reports history of chronic constipation ). Denies: Constipation, Decreased Appetite, Diarrhea, Nausea, Vomiting Genitourinary: Reports: No Symptoms. Denies: Pain Musculoskeletal: Reports: No Symptoms Skin: Reports: No Symptoms. Denies: Cyanosis Neurological: Reports: No Symptoms. Denies: Confusion, Difficulty Walking, Weakness, Gait Disturbance Psychiatric: Reports: No Symptoms - Patient Data Vitals - Most Recent: Last Vital Signs Temp 97.3 F 01/04/20 07:24 Pulse 86 01/04/20 07:24 Resp 20 01/04/20 07:24 BP 146/86 H 01/04/20 07:24 Pulse Ox 95 01/04/20 07:24 Weight - Most Recent: 113 lb 11.2 oz I&O - Last 24 hours: Intake & Output 01/03/20 01/04/20 01/04/20 22:59 06:59 14:59 Intake Total 1999 1230 Output Total 1500 Balance 1999 -270 Lab Results - Last 24 hrs: Laboratory Results - last 24 hr 01/03/20 01/04/20 01/04/20 Range/Units 09:07 05:34 05:34 WBC 3.39 L (3.98-10.04) K/mm3 RBC 3.37 L (3.98-5.22) M/mm3 Hgb 11.4 D (11.2-15.7) gm/dl Hct 34.5 (34.1-44.9) % MCV 102.4 H (79.4-94.8) fl MCH 33.8 H (25.6-32.2) pg MCHC 33.0 (32.2-35.5) g/dl RDW Std Deviation 65.0 H (36.4-46.3) fL Plt Count 131 L (182-369) K/mm3 MPV 11.1 (9.4-12.3) fl Neut % (Auto) 46.6 (34.0-71.1) % Lymph % (Auto) 36.9 (19.3-51.7) % [place] % (Auto) 12.7 H (4.7-12.5) % Eos % (Auto) 2.9 (0.7-5.8) Baso % (Auto) 0.6 (0.1-1.2) % Neut # (Auto) 1.58 (1.56-6.13) K/mm3 Lymph # (Auto) 1.25 (1.18-3.74) K/mm3 [place] # (Auto) 0.43 H (0.24-0.36) K/mm3 Eos # (Auto) 0.10 (0.04-0.36) K/mm3 Baso # (Auto) 0.02 (0.01-0.08) K/mm3 Sodium 135 L (136-145) mEq/L Potassium 3.7 (3.5-5.1) mEq/L Chloride 99 (98-107) mEq/L Carbon Dioxide 22 (21-32) mEq/L Anion Gap 17.7 H (5-15) BUN 4 L (7-18) mg/dL Creatinine 0.5 L (0.55-1.02) mg/dL Est Cr Clr Drug Dosing 135.17 mL/min Estimated GFR (MDRD) > 60 (>60) mL/min BUN/Creatinine Ratio 8.0 L (14-18) Glucose 60 L (74-106) mg/dL Calcium 9.3 (8.5-10.1) mg/dL Magnesium 1.6 L (1.8-2.4) mg/dl Total Bilirubin 0.7 (0.2-1.0) mg/dL AST 106 H (15-37) U/L ALT 63 H (14-59) U/L Alkaline Phosphatase 136 H (46-116) U/L C-Reactive Protein 2.2 H* (<1.0) mg/dL Total Protein 7.3 (6.4-8.2) g/dl Albumin 3.1 L (3.4-5.0) g/dl Globulin 4.2 gm/dL Albumin/Globulin Ratio 0.7 L (1-2) Triglycerides 145 (<150) mg/dL Cholesterol 210 H (<200) mg/dL LDL Cholesterol Direct 154 H* (<100) mg/dL HDL Cholesterol 25.0 L (40-59) mg/dL Med Orders - Current: Current Medications Alprazolam (Xanax) 0.5 mg PO Q4H PRN PRN Reason: Anxiety Duloxetine HCl (Cymbalta) 60 mg PO DAILY [facility] Last Admin: 01/04/20 08:29 Dose: 60 mg Documented by: Enoxaparin Sodium (Lovenox) 40 mg SUBCUT BEDTIME [facility] Last Admin: 01/03/20 20:22 Dose: 40 mg Documented by: Lactated Ringer's (Ringers, Lactated) 1,000 mls @ 125 mls/hr IV ASDIRECTED [facility] Last Admin: 01/04/20 11:07 Dose: 125 mls/hr Documented by: Ceftriaxone Sodium 1 gm/ (Sodium Chloride) 100 mls @ 200 mls/hr IV Q24H [facility] Last Admin: 01/03/20 17:43 Dose: 200 mls/hr Documented by: Ketorolac Tromethamine (Toradol) 30 mg IVPUSH Q6H PRN PRN Reason: Pain (moderate 4-6) Stop: 01/07/20 17:00 Last Admin: 01/04/20 14:11 Dose: 30 mg Documented by: Miscellaneous Information (Remove Patch) 1 ea TRDERM Q24H [facility] Last Admin: 01/03/20 21:29 Dose: Not Given Documented by: Morphine Sulfate (Morphine) 2 mg IVPUSH Q1H PRN PRN Reason: Pain Last Admin: 01/04/20 08:25 Dose: 2 mg Documented by: Nicotine (Habitrol) 7 mg TRDERM Q24H [facility] Last Admin: 01/03/20 21:29 Dose: Not Given Documented by: Ondansetron HCl (Zofran) 4 mg IV Q4H PRN PRN Reason: Nausea/Vomiting Oxycodone HCl (Oxycodone) 5 mg PO Q6H PRN PRN Reason: Pain Last Admin: 01/04/20 11:04 Dose: 5 mg Documented by: Pantoprazole Sodium (Protonix Iv) 40 mg IVPUSH Q12H [facility] Last Admin: 01/04/20 09:35 Dose: 40 mg Documented by: Sodium Chloride (Saline Flush) 10 ml FLUSH ASDIRECTED PRN PRN Reason: Keep Vein Open Last Admin: 01/02/20 17:25 Dose: 10 ml Documented by: Discontinued Medications Hydromorphone HCl (Dilaudid) 0.5 mg IVPUSH ONETIME ONE Stop: 01/02/20 15:56 Last Admin: 01/02/20 17:26 Dose: 0.5 mg Documented by: Hydromorphone HCl (Dilaudid) 0.5 mg IVPUSH ONETIME ONE Stop: 01/02/20 18:59 Last Admin: 01/02/20 19:17 Dose: 0.5 mg Documented by: Dextrose/Lactated Ringer's (Dextrose 5%-Lactated Ringers) 1,000 mls @ 999 mls/hr IV ASDIRECTED [facility] Last Admin: 01/02/20 17:24 Dose: 999 mls/hr Documented by: Potassium Chloride 10 meq/ (Premix) 100 mls @ 100 mls/hr IV ASDIRECTED [facility] Stop: 01/06/20 18:44 Last Admin: 01/03/20 04:00 Dose: 100 mls/hr Documented by: Ceftriaxone Sodium 2 gm/ (Sodium Chloride) 100 mls @ 200 mls/hr IV Q24H [facility] Last Admin: 01/02/20 18:38 Dose: 200 mls/hr Documented by: Dextrose/Lactated Ringer's (Dextrose 5%-Lactated Ringers) 1,000 mls @ 125 mls/hr IV ASDIRECTED [facility] Last Admin: 01/02/20 19:12 Dose: 125 mls/hr Documented by: Potassium Chloride 10 meq/ (Premix) 100 mls @ 100 mls/hr IV Q1H [facility] Stop: 01/03/20 18:29 Last Admin: 01/03/20 17:45 Dose: 100 mls/hr Documented by: Magnesium Sulfate 2 gm/ Premix 50 mls @ 25 mls/hr IV ONETIME ONE Stop: 01/04/20 09:59 Last Admin: 01/04/20 08:31 Dose: 25 mls/hr Documented by: Ketorolac Tromethamine (Toradol) 30 mg IVPUSH ONETIME ONE Stop: 01/02/20 15:56 Last Admin: 01/02/20 17:27 Dose: 30 mg Documented by: Lorazepam (Ativan) 1 mg IV ONETIME ONE Stop: 01/02/20 21:18 Last Admin: 01/02/20 22:34 Dose: 1 mg Documented by: Lorazepam (Ativan) 1 mg PO BEDTIME PRN PRN Reason: Anxiety Lorazepam (Ativan) 1 mg IVPUSH BEDTIME PRN PRN Reason: Anxiety Last Admin: 01/03/20 21:49 Dose: 1 mg Documented by: Nicotine (Habitrol) 7 mg TRDERM DAILY [facility] Last Admin: 01/03/20 10:27 Dose: 7 mg Documented by: Ondansetron HCl (Zofran) 4 mg IVPUSH ONETIME ONE Stop: 01/02/20 15:56 Last Admin: 01/02/20 17:24 Dose: 4 mg Documented by: Ondansetron HCl (Zofran) 4 mg IVPUSH Q6H PRN PRN Reason: Nausea - Exam Quality Assessment: Reports: DVT Prophylaxis. Denies: Supplemental Oxygen General: Reports: Alert, Oriented, Cooperative, No Acute Distress HEENT: Reports: Pupils Equal, Pupils Reactive, Mucous Membr. Moist/[place] Walk Neck: Reports: Supple, Trachea Midline Lungs: Reports: Clear to Auscultation, Normal Respiratory Effort Cardiovascular: Reports: Regular Rate, Regular Rhythm GI/Abdominal Exam: Soft, No Distention, Tender (Mild LLQ ), Abnormal Bowel Sounds (Hyperactive ) (Female) Exam: Deferred Rectal (Female) Exam: Deferred Back Exam: Reports: Normal Inspection, Full Range of Motion Extremities: Normal Inspection, Normal Range of Motion, No Pedal Edema, Normal Capillary Refill Skin: Reports: Warm, Dry, Intact Neurological: Reports: No New Focal Deficit Psy/Mental Status: Reports: Alert, Normal Affect, Normal Mood
== END 2020-01-04 15:32 | disposition home or self-care (01) | DRG 439 ==
LOC: JD.ED 13:40 → JD.MS 18:04
PROVIDERS: ADMIT Pediatrics; ATTEND Pediatrics
DX: K86.1 Other chronic pancreatitis (principal); N39.0 Urinary tract infection, site not specified; E87.6 Hypokalemia; I10 Essential (primary) hypertension; N80.9 Endometriosis, unspecified; F32.9 Major depressive disorder, single episode, unspecified; F41.9 Anxiety disorder, unspecified; Z20.828 Contact with and (suspected) exposure to other viral communicable diseases; D50.9 Iron deficiency anemia, unspecified; R07.9 Chest pain, unspecified; F10.10 Alcohol abuse, uncomplicated; M79.7 Fibromyalgia; M32.9 Systemic lupus erythematosus, unspecified; F17.210 Nicotine dependence, cigarettes, uncomplicated; G47.00 Insomnia, unspecified; E55.9 Vitamin D deficiency, unspecified; Z79.899 Other long term (current) drug therapy; Z90.49 Acquired absence of other specified parts of digestive tract; Z91.5 Personal history of self-harm
CPT/HCPCS: 36415; 74176; 74176-26; 76700; 76700-26; 80053; 80061; 80306; 81001; 82150; 83690; 83735; 84484; 85025; 85652; 86140; 93005; 96361; 96374; 96375; 99285; 99285-25; A9270-GY; C9113; J0696; J1170; J1650; J1885; J2060; J2270; J2405; J3475; J3480; J7050; J7120; J7121; U0002

== ENCOUNTER 2020-02-11 22:42 | Emergency (ER) | payer MEDICAID ==
[2020-02-11 22:56] VITALS: BP 124/83; PULSE 96
[2020-02-11] MEDS ORDERED: Sodium Chloride 0.9% 1,000 ML IV STA (23:04)
[2020-02-11] MEDS ORDERED: Ondansetron 4 MG/2 ML SDV IVPUSH ONE (23:04)
[2020-02-11] MEDS ORDERED: Sodium Chloride 0.9% 10 ML Syringe FLUSH PRN (23:04)
[2020-02-11] MEDS ORDERED: HYDROmorphone 1 MG/ML Syringe IVPUSH ONE (23:05)
[2020-02-11] MEDS ORDERED: Lidocaine 1% 10 ML MDV INJECT ONE (23:06)
--- NOTE | 2020-02-11 23:52 | EDM.PDOC ---
ED HPI GENERAL MEDICAL PROBLEM - General Chief Complaint: Abdominal Pain Stated Complaint: ABDOMINAL PAIN Time Seen by Provider: 02/11/20 22:52 Source of Information: Reports: Patient History Limitations: Reports: No Limitations - History of Present Illness INITIAL COMMENTS - FREE TEXT/NARRATIVE: The patient presents with abdominal pain, nausea and vomiting. The patient has a history of pancreatitis. She said this all started a couple of days ago. She has no diarrhea. She has no fever, chills, cough, congestion, runny nose, or dysuria. She also has a left forearm laceration. She said she threw a glass bowl at the wall and cut her arm. She was angry. Her tetanus is up to date. She says she has not been drinking lately. Onset: Gradual Duration: Day(s): Location: Reports: Abdomen Quality: Reports: Sharp Severity: Severe Improves with: Reports: None Worsens with: Reports: None Associated Symptoms: Reports: Nausea/Vomiting. Denies: Chest Pain, Cough, Fever/Chills, Headaches, Shortness of Breath abd Pain Score (Numeric/FACES): 8 - Related Data Allergies Allergy/AdvReac Type Severity Reaction Status Date / Time ibuprofen Allergy Intermediate Hives Verified 02/11/20 22:56 adhesive tape Allergy Mild Itching Verified 02/11/20 22:56 azithromycin [From Zithromax] AdvReac Mild Nausea Verified 02/11/20 22:56 Home Meds: Home Meds Melatonin 5 mg PO BEDTIME PRN 05/04/19 [History] Pantoprazole Sodium [Protonix] 40 mg PO DAILY #30 tablet. 05/06/19 [Rx] Ondansetron [Zofran ODT] 4 mg PO TID PRN #8 tab.dis 07/17/19 [Rx] traZODone HCl [Trazodone HCl] 50 mg PO BEDTIME 12/04/19 [History] ALPRAZolam [Xanax] 0.5 mg PO Q4H PRN 01/02/20 [History] FLUoxetine HCl [Fluoxetine HCl] 60 mg PO DAILY 01/02/20 [History] Ciprofloxacin [Ciprofloxacin HCl] 500 mg PO Q12H 01/04/20 [History] oxyCODONE 5 mg PO Q6H PRN #20 tablet 01/04/20 [Rx] Past Medical History HEENT History: Reports: Other (See Below) Other HEENT History: Currently having difficulty hearing in right ear Cardiovascular History: Reports: Hypertension Respiratory History: Reports: Bronchitis, Recurrent Gastrointestinal History: Reports: Pancreatitis, Other (See Below) Other Gastrointestinal History: 5 years ago, current admission Genitourinary History: Reports: None [employer] History: Reports: 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, Spontaneous Other [employer]ANT History: C section Musculoskeletal History: Reports: Fibromyalgia Neurological History: Reports: None Psychiatric History: Reports: Addiction, Anxiety, Depression, Other (See Below) Endocrine/Metabolic History: Reports: Vitamin D Deficiency Hematologic History: Reports: Anemia Immunologic History: Reports: SLE Oncologic (Cancer) History: Reports: None Other Oncologic History: abnormal pap, never went back for follow up Colposcopy was done at that time Dermatologic History: Reports: None Other Dermatologic History: moles removed on face, gets hives - Infectious Disease History Infectious Disease History: Reports: Chicken Pox - Past Surgical History Head Surgeries/Procedures: Reports: None HEENT Surgical History: Reports: Adenoidectomy, Oral Surgery Cardiovascular Surgical History: Reports: None Respiratory Surgical History: Reports: None GI Surgical History: Reports: Cholecystectomy, ERCP Female Surgical History: Reports: Section, Other (See Below) Musculoskeletal Surgical History: Reports: None Oncologic Surgical History: Reports: None Social & Family History - Family History Family Medical History: Noncontributory Oncologic: Reports: Uterine - Tobacco Use Smoking Status *Q: Current Every Day Smoker Years of Tobacco use: 15 Packs/Tins Daily: 0.5 - Caffeine Use Caffeine Use: Reports: None Other Caffeine Use: rarrely - Recreational Drug Use Recreational Drug Use: No - Living Situation & Occupation Living situation: Reports: (), with Significant Other (Boyfriend), with Family (2 kids) Occupation: Unemployed ED ROS GENERAL - Review of Systems Review Of Systems: See Below Constitutional: Reports: No Symptoms HEENT: Reports: No Symptoms Respiratory: Reports: No Symptoms Cardiovascular: Reports: No Symptoms Endocrine: Reports: No Symptoms GI/Abdominal: Reports: Abdominal Pain, Nausea, Vomiting. Denies: Diarrhea : Reports: No Symptoms Musculoskeletal: Reports: Other (laceration left forearm) ED EXAM, GI/ABD - Physical Exam Exam: See Below Exam Limited By: No Limitations General Appearance: Alert, No Apparent Distress Ears: Normal External Exam Nose: Normal Inspection Head: Atraumatic, Normocephalic Neck: Normal Inspection Respiratory/Chest: No Respiratory Distress, Lungs Clear, Normal Breath Sounds Cardiovascular: Regular Rate, Rhythm, No Edema, No Murmur GI/Abdominal Exam: Soft, No Organomegaly, No Mass, Tender (Moderate to severe upper abdominal tenderness) Back Exam: Normal Inspection Extremities: Other (4cm laceration to the left inner forearm. Good sensaton and pulses distally.) ED LACERATION PROCEDURES - Laceration/Wound Repair Left Arm Lac/wound length in cm: 4 Appearance: Superficial, Linear Anesthetic Type: Local Local Anesthesia - Lidocaine (Xylocaine): 1% Plain Skin Prep: Saline Exploration/Debridement/Repair: Wound Explored, In a Bloodless Field, Explored to Base Closed with: Sutures Suture Size: 4-0 # of Sutures: 4 Suture Type: Nylon, Interrupted, Simple Tetanus Status Addressed: Yes Complications: No Course - Vital Signs Last Recorded V/S: Last Vital Signs Temp 97.3 F 02/11/20 22:53 Pulse 96 02/11/20 22:53 Resp 18 02/11/20 22:53 BP 124/83 02/11/20 22:53 Pulse Ox 96 02/11/20 22:53 - Orders/Labs/Meds Orders: Active Orders 24 hr Category Date Time Status Peripheral IV Care [RC] . DIRECTED Care 02/11/20 23:05 Active Sodium Chloride 0.9% [Saline Flush] Med 02/11/20 23:04 Active 10 ml FLUSH ASDIRECTED PRN ED Antiemetic Medication Reflex [OM.PC] Stat Oth 02/11/20 23:05 Ordered Peripheral IV Insertion Adult [OM.PC] Stat Oth 02/11/20 23:04 Ordered Medication Orders Sodium Chloride (Saline Flush) 10 ml FLUSH ASDIRECTED PRN PRN Reason: Keep Vein Open Last Admin: 02/11/20 23:14 Dose: 10 ml Documented by: ORION Labs: Laboratory Tests 02/11/20 02/11/20 02/11/20 Range/Units 23:18 23:18 23:18 WBC 6.13 (3.98-10.04) K/mm3 RBC 4.10 (3.98-5.22) M/mm3 Hgb 13.5 D (11.2-15.7) gm/dl Hct 40.4 (34.1-44.9) % MCV 98.5 H D (79.4-94.8) fl MCH 32.9 H (25.6-32.2) pg MCHC 33.4 (32.2-35.5) g/dl RDW Std Deviation 57.2 H (36.4-46.3) fL Plt Count 260 D (182-369) K/mm3 MPV 11.0 (9.4-12.3) fl Neut % (Auto) 42.3 (34.0-71.1) % Lymph % (Auto) 49.9 (19.3-51.7) % [facility] [facility] % (Auto) 4.7 (4.7-12.5) % Eos % (Auto) 2.1 (0.7-5.8) Baso % (Auto) 0.8 (0.1-1.2) % Neut # (Auto) 2.59 (1.56-6.13) K/mm3 Lymph # (Auto) 3.06 (1.18-3.74) K/mm3 [facility] [place] [facility] # (Auto) 0.29 (0.24-0.36) K/mm3 Eos # (Auto) 0.13 (0.04-0.36) K/mm3 Baso # (Auto) 0.05 (0.01-0.08) K/mm3 Sodium 139 (136-145) mEq/L Potassium 3.0 L (3.5-5.1) mEq/L Chloride 101 (98-107) mEq/L Carbon Dioxide 26 (21-32) mEq/L Anion Gap 15.0 (5-15) BUN 3 L (7-18) mg/dL Creatinine 0.6 (0.55-1.02) mg/dL Est Cr Clr Drug Dosing 112.90 mL/min Estimated GFR (MDRD) > 60 (>60) mL/min BUN/Creatinine Ratio 5.0 L (14-18) Glucose 96 (74-106) mg/dL Calcium 9.2 (8.5-10.1) mg/dL Total Bilirubin 0.5 (0.2-1.0) mg/dL AST 131 H (15-37) U/L ALT 68 H (14-59) U/L Alkaline Phosphatase 137 H (46-116) U/L Total Protein 8.4 H (6.4-8.2) g/dl Albumin 3.7 (3.4-5.0) g/dl Globulin 4.7 gm/dL Albumin/Globulin Ratio 0.8 L (1-2) Lipase 95 (73-393) U/L HCG, Qual Negative (NEGATIVE) Ethyl Alcohol (0.00) gm% 02/11/20 Range/Units 23:18 WBC (3.98-10.04) K/mm3 RBC (3.98-5.22) M/mm3 Hgb (11.2-15.7) gm/dl Hct (34.1-44.9) % MCV (79.4-94.8) fl MCH (25.6-32.2) pg MCHC (32.2-35.5) g/dl RDW Std Deviation (36.4-46.3) fL Plt Count (182-369) K/mm3 MPV (9.4-12.3) fl Neut % (Auto) (34.0-71.1) % Lymph % (Auto) (19.3-51.7) % [facility] [place] [facility] % (Auto) (4.7-12.5) % Eos % (Auto) (0.7-5.8) Baso % (Auto) (0.1-1.2) % Neut # (Auto) (1.56-6.13) K/mm3 Lymph # (Auto) (1.18-3.74) K/mm3 [facility] [place] [facility] # (Auto) (0.24-0.36) K/mm3 Eos # (Auto) (0.04-0.36) K/mm3 Baso # (Auto) (0.01-0.08) K/mm3 Sodium (136-145) mEq/L Potassium (3.5-5.1) mEq/L Chloride (98-107) mEq/L Carbon Dioxide (21-32) mEq/L Anion Gap (5-15) BUN (7-18) mg/dL Creatinine (0.55-1.02) mg/dL Est Cr Clr Drug Dosing mL/min Estimated GFR (MDRD) (>60) mL/min BUN/Creatinine Ratio (14-18) Glucose (74-106) mg/dL Calcium (8.5-10.1) mg/dL Total Bilirubin (0.2-1.0) mg/dL AST (15-37) U/L ALT (14-59) U/L Alkaline Phosphatase (46-116) U/L Total Protein (6.4-8.2) g/dl Albumin (3.4-5.0) g/dl Globulin gm/dL Albumin/Globulin Ratio (1-2) Lipase (73-393) U/L HCG, Qual (NEGATIVE) Ethyl Alcohol 0.32 (0.00) gm% Meds: Medications Generic Name Dose Route Start Last Admin Trade Name Fredemarco PRN Reason Stop Dose Admin Sodium Chloride 10 ml 02/11/20 23:04 02/11/20 23:14 Saline Flush FLUSH 10 ml ASDIRECTED PRN Administration Keep Vein Open Discontinued Medications Generic Name Dose Route Start Last Admin Trade Name Freq PRN Reason Stop Dose Admin Hydromorphone HCl 1 mg 02/11/20 23:05 02/11/20 23:13 Dilaudid IVPUSH 02/11/20 23:06 1 mg ONETIME ONE Administration Sodium Chloride 1,000 mls @ 1,000 mls/hr 02/11/20 23:04 02/11/20 23:13 Normal Saline IV 02/12/20 00:03 1,000 mls/hr .BOLUS STA Administration Lidocaine HCl 10 ml 02/11/20 23:06 02/11/20 23:13 Xylocaine 1% INJECT 02/11/20 23:07 10 ml ONETIME ONE Administration Ondansetron HCl 4 mg 02/11/20 23:04 02/11/20 23:13 Zofran IVPUSH 02/11/20 23:05 4 mg ONETIME ONE Administration - Re-Assessments/Exams Free Text/Narrative Re-Assessment/Exam: 02/11/20 23:51 I ordered an IV NS 1L bolus, zofran 4mg IV, dilaudid 1mg IV, labs and UA. 02/12/20 00:37 Her CBC looks good. Her K was a little low at 3. Her AST was elevated at 131. Her ALT was elevated at 68. Her Alk Phos was elevated at 137. Her lipase is normal. Her HCG is negative. Her blood alcohol was 0.32. I sutured up her arm. I will discharge her home. Departure - Departure Time of Disposition: 00:40 Disposition: Home, Self-Care 01 Condition: Good Clinical Impression: Abdominal pain Qualifiers: Abdominal location: upper abdomen, unspecified Qualified Code(s): R10.10 - Upper abdominal pain, unspecified Alcohol intoxication Qualifiers: Complication of substance-induced condition: uncomplicated Qualified Code(s): F10.920 - Alcohol use, unspecified with intoxication, uncomplicated Laceration of left forearm Qualifiers: Encounter type: initial encounter Qualified Code(s): S51.812A - Laceration without foreign body of left forearm, initial encounter - Discharge Information *PRESCRIPTION DRUG MONITORING PROGRAM REVIEWED*: Not Applicable *COPY OF PRESCRIPTION DRUG MONITORING REPORT IN PATIENT ZENON: Not Applicable Referrals: Leslie Gutiérrez PA-C [Primary Care Provider] - Forms: ED Department Discharge Additional Instructions: Clean the laceration with warm soapy water 2 times per day and apply antibiotic ointment after. Have the sutures removed in 1 week. Look for any signs of infection such as redness, swelling, pain or drainage. If you see any of these signs, please return or see your doctor. You may need oral antibiotics. Sepsis Event Note (ED) - Evaluation Sepsis Screening Result: No Definite Risk - Focused Exam Vital Signs: Vital Signs Temp Pulse Resp BP Pulse Ox 02/11/20 22:53 97.3 F 96 18 124/83 96 - My Orders Last 24 Hours: My Active Orders 02/11/20 23:04 Sodium Chloride 0.9% [Saline Flush] 10 ml FLUSH ASDIRECTED PRN Peripheral IV Insertion Adult [OM.PC] Stat 02/11/20 23:05 Peripheral IV Care [RC] . DIRECTED ED Antiemetic Medication Reflex [OM.PC] Stat - Assessment/Plan Last 24 Hours: My Active Orders 02/11/20 23:04 Sodium Chloride 0.9% [Saline Flush] 10 ml FLUSH ASDIRECTED PRN Peripheral IV Insertion Adult [OM.PC] Stat 02/11/20 23:05 Peripheral IV Care [RC] . DIRECTED ED Antiemetic Medication Reflex [OM.PC] Stat
== END 2020-02-12 00:54 | disposition home or self-care (01) ==
LOC: JD.ED 22:42
DX: S51.812A Laceration without foreign body of left forearm, initial encounter (principal); F10.120 Alcohol abuse with intoxication, uncomplicated; R10.10 Upper abdominal pain, unspecified; R11.2 Nausea with vomiting, unspecified; I10 Essential (primary) hypertension; F41.9 Anxiety disorder, unspecified; F32.9 Major depressive disorder, single episode, unspecified; F17.210 Nicotine dependence, cigarettes, uncomplicated; Z98.890 Other specified postprocedural states; Z88.1 Allergy status to other antibiotic agents; Z88.6 Allergy status to analgesic agent; Z91.048 Other nonmedicinal substance allergy status; Z79.899 Other long term (current) drug therapy; Z90.49 Acquired absence of other specified parts of digestive tract; W25.XXXA Contact with sharp glass, initial encounter
CPT/HCPCS: 12002; 36415; 80053; 80307; 83690; 84703; 85025; 96361; 96374; 96375; 99284; J1170; J2001; J2405; J7030; 99283

== ENCOUNTER 2020-12-05 21:23 | Emergency (ER) | payer MEDICAID, SELFPAY ==
[2020-12-05 21:37] VITALS: BP 117/85; PULSE 84
--- NOTE | 2020-12-05 22:03 | EDM.PDOC ---
ED HPI GENERAL MEDICAL PROBLEM - General Chief Complaint: General Stated Complaint: [facility] Time Seen by Provider: 12/05/20 21:28 Source of Information: Reports: Patient, RN Notes Reviewed History Limitations: Reports: No Limitations - History of Present Illness INITIAL COMMENTS - FREE TEXT/NARRATIVE: Patient is a 30-year-old female presenting to the emergency department with complaints of right ankle, sacrum, left hip, and head pain. She reports that she was attempting to climb down from a second story balcony. She was hanging from the balcony when she let go. Estimates she dropped approximately 5 to 6 feet. States she landed on her right ankle and then fell backwards, hitting her head. She reports she did have loss of consciousness for approximately 1 minute. Denies any nausea or vomiting but does have a headache. Also complains of pain to her tailbone and left hip. Patient does report that she currently has a protective contact lens in her right out due to corneal abrasion. This is due to be taken out tomorrow. Generalized Pain Score (Numeric/FACES): 8 - Related Data Allergies Allergy/AdvReac Type Severity Reaction Status Date / Time ibuprofen Allergy Intermediate Hives Verified 12/05/20 21:29 adhesive tape Allergy Mild Itching Verified 12/05/20 21:29 azithromycin [From Zithromax] AdvReac Mild Nausea Verified 12/05/20 21:29 Home Meds: Home Meds Melatonin 5 mg PO BEDTIME PRN 05/04/19 [History] Pantoprazole Sodium [Protonix] 40 mg PO DAILY #30 tablet. 05/06/19 [Rx] Ondansetron [Zofran ODT] 4 mg PO TID PRN #8 tab.dis 07/17/19 [Rx] traZODone HCl [Trazodone HCl] 50 mg PO BEDTIME 12/04/19 [History] ALPRAZolam [Xanax] 0.5 mg PO Q4H PRN 01/02/20 [History] Escitalopram [Lexapro] 10 mg PO DAILY 12/05/20 [History] oxyCODONE 5 mg PO Q4H PRN #20 tab 12/05/20 [Rx] Past Medical History HEENT History: Reports: Other (See Below) Other HEENT History: Currently having difficulty hearing in right ear Cardiovascular History: Reports: Hypertension Respiratory History: Reports: Bronchitis, Recurrent Gastrointestinal History: Reports: Pancreatitis, Other (See Below) Other Gastrointestinal History: 5 years ago, current admission Genitourinary History: Reports: None [employer]ER History: Reports: 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, Spontaneous Other [employer] MENDER History: C section Musculoskeletal History: Reports: Fibromyalgia Neurological History: Reports: None Psychiatric History: Reports: Addiction, Anxiety, Depression, Other (See Below) Endocrine/Metabolic History: Reports: Vitamin D Deficiency Hematologic History: Reports: Anemia Immunologic History: Reports: SLE Oncologic (Cancer) History: Reports: None Other Oncologic History: abnormal pap, never went back for follow up Colposcopy was done at that time Dermatologic History: Reports: None Other Dermatologic History: moles removed on face, gets hives - Infectious Disease History Infectious Disease History: Reports: Chicken Pox - Past Surgical History Head Surgeries/Procedures: Reports: None HEENT Surgical History: Reports: Adenoidectomy, Oral Surgery Other HEENT Surgeries/Procedures: wisdom teeth removed Cardiovascular Surgical History: Reports: None Respiratory Surgical History: Reports: None GI Surgical History: Reports: Cholecystectomy, ERCP Female Surgical History: Reports: Section, Other (See Below) Other Female Surgeries/Procedures: exploratory lap, endoscopy; x 2 Musculoskeletal Surgical History: Reports: None Oncologic Surgical History: Reports: None Social & Family History - Family History Family Medical History: No Pertinent Family History Oncologic: Reports: Uterine - Tobacco Use Tobacco Use Status *Q: Current Every Day Tobacco User Years of Tobacco use: 9 Packs/Tins Daily: 0.5 - Caffeine Use Caffeine Use: Reports: Coffee Other Caffeine Use: rarrely - Recreational Drug Use Recreational Drug Use: No - Living Situation & Occupation Living situation: Reports: (), with Significant Other (Boyfriend), with Family (2 kids) Occupation: Unemployed ED ROS GENERAL - Review of Systems Review Of Systems: See Below Constitutional: Reports: No Symptoms ED EXAM, GENERAL - Physical Exam Exam: See Below Exam Limited By: No Limitations General Appearance: Alert, WD/WN, No Apparent Distress Head: Other (Small hematoma to the occipital head. No lacerations or bleeding noted.) Respiratory/Chest: No Respiratory Distress, Lungs Clear, Normal Breath Sounds, No Accessory Muscle Use, Chest Non-Tender Cardiovascular: Normal Peripheral Pulses, Regular Rate, Rhythm, No Edema, No Gallop, No JVD, No Murmur, No Rub Back Exam: Other (Tenderness to palpation overlying the coccyx. No edema or ecchymosis present.) Extremities: Other (Tenderness to palpation to the right heel and ankle. No ecchymosis, swelling, or deformity noted.) Neurological: Alert, Oriented, CN II-XII Intact, Normal Cognition, Normal Gait, Normal Reflexes, No Motor/Sensory Deficits Psychiatric: Normal Affect, Normal Mood Skin Exam: Warm, Dry, Intact, Normal Color, No Rash Course - Vital Signs Last Recorded V/S: Last Vital Signs Temp 97.3 F 12/05/20 21:35 Pulse 84 12/05/20 21:35 Resp 18 12/05/20 21:35 BP 117/85 12/05/20 21:35 Pulse Ox 97 12/05/20 21:35 - Orders/Labs/Meds Orders: Active Orders 24 hr Category Date Time Status Ankle Min 3V Rt [CR] Stat Exams 12/05/20 21:38 Taken Head wo Cont [CT] Stat Exams 12/05/20 21:38 Taken Hip Min 2V or 3V Lt [CR] Stat Exams 12/05/20 21:38 Taken Sacrum Coccyx Min 2V [CR] Stat Exams 12/05/20 21:38 Taken DME for Discharge [COMM] Routine Oth 12/05/20 22:51 Ordered Meds: Medications Discontinued Medications Generic Name Dose Route Start Last Admin Trade Name Freq PRN Reason Stop Dose Admin Hydromorphone HCl 1 mg 12/05/20 22:34 12/05/20 22:39 Hydromorphone 1 Mg/Ml Syringe IM 12/05/20 22:35 1 mg ONETIME ONE Administration - Re-Assessments/Exams Free Text/Narrative Re-Assessment/Exam: Patient is a 30-year-old female presenting to the emergency department with complaints of pain to her right heel and ankle, left hip and sacrum, as well as head pain. On exam, she has tenderness in her left buttocks area. She is also tender throughout her right heel and ankle, however there is no ecchymosis or swelling noted to this area. Neurologic exam is found to be normal. I have ordered x-rays of the right ankle, sacrum, and left hip. Also ordered head CT. 12/05/20 22:41 CT scan of the head shows no acute abnormalities. X-rays referred by myself and Dr. Gautam. Right ankle and foot show no abnormalities. Left hip shows no evidence of fracture. She does have a nondisplaced left inferior pubic rami fracture. Sacrum shows evidence of old fractures which she states she has had to previous fractures. There is no acute fractures noted. Results discussed with patient. She would like to be able to go home this evening and follow-up with orthopedics on an outpatient basis. I am going to give her Dilaudid 1 mg IM and then we will attempt to assist her to ambulate with crutches. Departure - Departure Time of Disposition: 23:02 Disposition: Home, Self-Care 01 Condition: Good Clinical Impression: Pubic ramus fracture Qualifiers: Encounter type: initial encounter Fracture type: closed Laterality: left Qualified Code(s): S32.592A - Other specified fracture of left pubis, initial encounter for closed fracture - Discharge Information Prescriptions: oxyCODONE 5 mg PO Q4H PRN #20 tab PRN Reason: Pain Instructions: Simple Pelvic Fracture, Adult Referrals: Leslie Gutiérrez PA-C [Primary Care Provider] - Slick Gonzalez MD [Physician] - Forms: ED Department Discharge Additional Instructions: You were seen in the emergency department today for pain to your right ankle, left hip, sacrum, and head after falling while trying to climb down from a balcony. X-rays were completed of your right foot and ankle, left hip, and sacrum. He also does he CT scan your head. Results of your work-up show that you have a nondisplaced inferior pubic rami fracture on the left side. Remainder of your work-up was found to be normal. While in the ER, you received an injection of Dilaudid. You have been provided crutches to assist with ambulation. This type of fracture will heal over time. Recommend contacting orthopedist, Dr. Gonzalez's office tomorrow morning to set up a follow-up appointment. Prescription has been sent to [facility] for oxycodone. Uses a as needed for pain. If you should experience any new or worsening symptoms, please do not hesitate to return to the emergency department for reevaluation. Sepsis Event Note (ED) - Evaluation Sepsis Screening Result: No Definite Risk - Focused Exam Vital Signs: Vital Signs Temp Pulse Resp BP Pulse Ox 12/05/20 21:35 97.3 F 84 18 117/85 97 - My Orders Last 24 Hours: My Active Orders 12/05/20 21:38 Ankle Min 3V Rt [CR] Stat Head wo Cont [CT] Stat Hip Min 2V or 3V Lt [CR] Stat Sacrum Coccyx Min 2V [CR] Stat 12/05/20 22:51 DME for Discharge [COMM] Routine - Assessment/Plan Last 24 Hours: My Active Orders 12/05/20 21:38 Ankle Min 3V Rt [CR] Stat Head wo Cont [CT] Stat Hip Min 2V or 3V Lt [CR] Stat Sacrum Coccyx Min 2V [CR] Stat 12/05/20 22:51 DME for Discharge [COMM] Routine
[2020-12-05] MEDS ORDERED: HYDROmorphone 1 MG/ML Syringe IM ONE (22:34)
[2020-12-05] MEDS ORDERED: oxyCODONE 5 MG Tab PO ONE (23:10)
--- NOTE | 2020-12-06 07:35 | CR ---
Left hip: AP and frog-leg lateral views of the left hip were obtained. Comparison: No prior hip study is available. Joint space within the left hip is preserved. Left sacroiliac joint is felt to be within normal limits. Small lucency is seen within the inferior pubic ramus suspicious for nondisplaced fracture. No additional abnormality is seen on this study. Impression: 1. Small nondisplaced fracture within the inferior left pubic ramus. 2. Left hip the study is otherwise unremarkable. Diagnostic code #3
--- NOTE | 2020-12-06 07:38 | CT ---
Head CT Technique: Multiple axial sections through the brain were obtained. Intravenous contrast was not utilized. Reconstructed coronal and sagittal images were obtained. Comparison: Prior head CT study of 11/25/17. Findings: Ventricles along with basal cisterns and sulci over the convexities are within normal limits for the patient's age. No abnormal parenchymal densities are seen. No evidence of intracranial hemorrhage. No midline shift or mass-effect is seen. Bone window settings were reviewed. No acute calvarial abnormality is appreciated. Visualized mastoid sinuses and paranasal sinuses show nothing acute. Impression: 1. Nothing acute is appreciated on noncontrast head CT study. 2. No change is seen from prior head CT exam. Diagnostic code #1 I agree with preliminary report from [facility], finalized on 12/05/20, 11:18 PM CDT, code 1
--- NOTE | 2020-12-06 08:21 | CR ---
Sacrum and coccyx: 3 views showing the sacrum and coccyx were obtained. Comparison: Prior sacrum or coccyx plain film study 11/25/17. Sacroiliac joints appear within normal limits. Sacral foramina appear to be patent. No discrete fracture or other bony abnormality is appreciated. Impression: 1. Nothing acute is appreciated a 3 view sacrum and coccyx study. 2. No change is seen from prior study. Diagnostic code #1
--- NOTE | 2020-12-06 09:01 | CR ---
Right ankle: 4 views were obtained of the ankle. 3 views are labeled as left and lateral view is labeled as right. Findings presumably were mismarked. Comparison: No prior ankle study is available. Ankle mortise is symmetric. No acute fracture, dislocation or other bony abnormality is seen. Impression: 1. Nothing acute is seen on ankle study. 2. Ankle study is presumably mismarked as described above. Diagnostic code #1
== END 2020-12-05 23:15 | disposition home or self-care (01) ==
LOC: JD.ED 21:23
DX: S32.592A Other specified fracture of left pubis, initial encounter for closed fracture (principal); I10 Essential (primary) hypertension; Z72.0 Tobacco use; Z88.6 Allergy status to analgesic agent; Z91.048 Other nonmedicinal substance allergy status; Z88.1 Allergy status to other antibiotic agents; W17.89XA Other fall from one level to another, initial encounter
CPT/HCPCS: 70450; 72220; 73502; 73610; 96372; 99285; A9270; J1170; 99284

== ENCOUNTER 2021-04-08 00:02 | Emergency (ER) | payer MEDICAID ==
[2021-04-08 00:54] VITALS: BP 115/86; PULSE 120
[2021-04-08] MEDS ORDERED: Lidocaine 1% 10 ML MDV INJECT ONE (02:27)
--- NOTE | 2021-04-08 02:28 | EDM.PDOC ---
ED HPI GENERAL MEDICAL PROBLEM - General Chief Complaint: Laceration Stated Complaint: [facility] Time Seen by Provider: 04/08/21 02:20 Source of Information: Reports: Patient, Old Records History Limitations: Reports: No Limitations - History of Present Illness INITIAL COMMENTS - FREE TEXT/NARRATIVE: Patient is a 31-year-old female with a history of alcohol abuse, chronic pancreatitis and previous attempts at self-harm presents with a chief complaint of laceration to her right forearm. Patient states she did drink some alcohol tonight but not not very much relative to what she normally drinks. She reports not really remembering how she cut herself. She denies any other bodily trauma. She states she does not want to end her life. She states she normally cuts her self to bleed and feels better afterwards. She denies any numbness, tingling of her hand or fingers. She reports having some chronic abdominal pain consistent with her chronic pancreatitis. However, she is not experiencing fevers, vomiting or loss of appetite. Abdomen Pain Score (Numeric/FACES): 5 - Related Data Allergies Allergy/AdvReac Type Severity Reaction Status Date / Time ibuprofen Allergy Intermediate Hives Verified 04/08/21 00:04 adhesive tape Allergy Mild Itching Verified 04/08/21 00:04 azithromycin [From Zithromax] AdvReac Mild Nausea Verified 04/08/21 00:04 Home Meds: Home Meds Pantoprazole Sodium [Protonix] 40 mg PO DAILY #30 tablet.dr 05/06/19 [Rx] Ondansetron [Zofran ODT] 4 mg PO TID PRN #8 tab.dis 07/17/19 [Rx] traZODone HCl [Trazodone HCl] 50 mg PO BEDTIME 12/04/19 [History] Prazosin HCl [Prazosin] 1 mg PO BEDTIME 04/08/21 [History] Sertraline [Zoloft] 100 mg PO DAILY 04/08/21 [History] Past Medical History HEENT History: Reports: Other (See Below) Other HEENT History: Currently having difficulty hearing in right ear Cardiovascular History: Reports: Hypertension Respiratory History: Reports: Bronchitis, Recurrent Gastrointestinal History: Reports: Pancreatitis, Other (See Below) Other Gastrointestinal History: 5 years ago, current admission Genitourinary History: Reports: None [employer] WA[employer] History: Reports: 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, , Spontaneous 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 Musculoskeletal History: Reports: Fibromyalgia Neurological History: Reports: None Psychiatric History: Reports: Addiction, Anxiety, Depression Endocrine/Metabolic History: Reports: Vitamin D Deficiency Hematologic History: Reports: Anemia Immunologic History: Reports: SLE Oncologic (Cancer) History: Reports: None Other Oncologic History: abnormal pap, never went back for follow up Colposcopy was done at that time Dermatologic History: Reports: None Other Dermatologic History: moles removed on face, gets hives - Infectious Disease History Infectious Disease History: Reports: Chicken Pox - Past Surgical History Head Surgeries/Procedures: Reports: None HEENT Surgical History: Reports: Adenoidectomy, Oral Surgery Other HEENT Surgeries/Procedures: wisdom teeth removed Cardiovascular Surgical History: Reports: None Respiratory Surgical History: Reports: None GI Surgical History: Reports: Cholecystectomy, ERCP Female Surgical History: Reports: Section, Other (See Below) Other Female Surgeries/Procedures: exploratory lap, endoscopy; x 2 Oncologic Surgical History: Reports: None Social & Family History - Family History Family Medical History: No Pertinent Family History Oncologic: Reports: Uterine - Tobacco Use Tobacco Use Status *Q: Current Every Day Tobacco User Years of Tobacco use: 10 Packs/Tins Daily: 0.5 - Caffeine Use Caffeine Use: Reports: Coffee Other Caffeine Use: rarrely - Alcohol Use Days Per Week of Alcohol Use: 7 Number of Drinks Per Day: 3 Total Drinks Per Week: 21 - Recreational Drug Use Recreational Drug Use: No - Living Situation & Occupation Living situation: Reports: (), with Significant Other (Boyfri end), with Family (2 kids) Occupation: Unemployed ED ROS GENERAL - Review of Systems Review Of Systems: See Below Free Text/Narrative/Comment: In addition to that documented in the HPI above, the additional ROS was obtained: Constitutional: Denies fevers or chills Eyes: Denies vision changes ENMT: Denies sore throat CV: Denies chest pain Resp: Denies SOB GI: Denies vomiting or diarrhea : Denies painful urination MSK: Denies recent trauma Skin: Denies new rashes Neuro: Denies new numbness or tingling or weakness Endocrine: Denies unexpected weight loss Heme: Denies bleeding disorders ED EXAM, SKIN/RASH Exam: See Below Text/Narrative:: I have reviewed the triage vital signs Const: Poorly nourished, well developed, appears stated age. No slurring of speech or altered mentation Eyes: Pupils Equal and reactive to light bilaterally, no conjunctival injection HENT: No signs of trauma or swelling, Neck supple without meningismus CV: Mild tachycardia without abnormal rhythm., Warm, well-perfused extremities RESP: Unlabored respiratory effort GI: soft, non-tender, non-distended, no masses MSK: No gross deformities appreciated Skin: Superficial 4 to 5 cm laceration to the distal right forearm that is l inear and also clean. No evidence of contamination. Warm, dry. No rashes Neuro: Alert, equipment oiler II-XII grossly intact. Sensation and motor function of extremities grossly intact. Psych: Appropriate mood and affect. ED SKIN PROCEDURES - Laceration/Wound Repair Right Arm Appearance: Superficial Distal NVT: Neuro & Vascular Intact, No Tendon Injury Anesthetic Type: Local Local Anesthesia - Lidocaine (Xylocaine): 1% Plain Local Anesthetic Volume: 2cc Skin Prep: Providone-Iodine (Betadine) Closed with: Sutures Lac/Wound length In cm: 5 Suture Size: 3-0 Suture Type: Nylon Progress/Comments: Patient tolerated procedure well with minimal blood loss and no immediate c omplications Course - Vital Signs Last Recorded V/S: Last Vital Signs Temp 37.1 C 04/08/21 00:50 Pulse 120 H 04/08/21 00:50 Resp 15 04/08/21 00:50 BP 115/86 04/08/21 00:50 Pulse Ox 96 04/08/21 00:50 - Orders/Labs/Meds Labs: Laboratory Tests 04/08/21 Range/Units 00:28 SARS-CoV-2 RNA (ALEXANDRA) Negative (NEGATIVE) Meds: Medications Discontinued Medications Generic Name Dose Route Start Last Admin Trade Name Bryanq PRN Reason Stop Dose Admin Lidocaine HCl 10 ml 04/08/21 02:27 04/08/21 02:45 Lidocaine 1% 10 Ml Mdv INJECT 04/08/21 02:28 10 ml ONETIME ONE Administration Departure - Departure Time of Disposition: 02:51 Disposition: Home, Self-Care 01 Clinical Impression: Laceration of right forearm - Discharge Information Instructions: Laceration Care, Adult Referrals: PCP,None [Primary Care Provider] - Forms: ED Department Discharge Sepsis Event Note (ED) - Evaluation Sepsis Screening Result: No Definite Risk - Focused Exam Vital Signs: Vital Signs Temp Pulse Resp BP Pulse Ox 04/08/21 00:50 37.1 C 120 H 15 115/86 96 - Assessment/Plan Assessment:: Patient is 31-year-old female presenting to the emergency room with a complaint of laceration to right forearm. Patient adamantly denies suicidality and does have prior visits for similar type behavior. No work-up indicated for chronic pancreatitis at this time patient is tolerating p.o. Slightly tachycardic likely related to anxiety, pain and does not require treatment at this time. Laceration was repaired in the emergency room. Patient feels well and has no other complaints at this time. Will discharge with outpatient follow-up and seferino ropriate return precautions. All questions addressed and answered. Patient agrees with this plan of care.
== END 2021-04-08 02:57 | disposition home or self-care (01) ==
LOC: JD.ED 00:02
DX: S51.811A Laceration without foreign body of right forearm, initial encounter (principal); I10 Essential (primary) hypertension; Z91.048 Other nonmedicinal substance allergy status; Z88.1 Allergy status to other antibiotic agents; Z88.8 Allergy status to other drugs, medicaments and biological substances; Z79.899 Other long term (current) drug therapy; Z72.0 Tobacco use; Z20.822 Contact with and (suspected) exposure to COVID-19; X78.8XXA Intentional self-harm by other sharp object, initial encounter
CPT/HCPCS: 12002; 99284-25; U0002